=== PATIENT | female | born 2000 | race Caucasian/White ===

== ENCOUNTER 2022-12-18 21:21 | Outpatient (REF) | payer MEDICAID, SELFPAY | END 2022-12-18 21:22 | disposition home or self-care (01) | LOC: LAB 21:21 | PROVIDERS: Visit Provider Obstetrics & Gynecology | DX: Z34.93 Encounter for supervision of normal pregnancy, unspecified, third trimester (principal) | CPT/HCPCS: 87081 ==

== ENCOUNTER 2022-12-25 08:33 | Outpatient (OUT) | payer MEDICAID, SELFPAY ==
--- NOTE | 2022-12-25 08:35 | US_ITS ---
[address] [address] Patient Name: SARAN SIMPSON MRN: [id number] date: 2000 Sex: F Assigned Patient Location: Current Patient Location: US Accession/Order Number: [id number] Exam Date: 12/25/2022 08:36 Report Date: 12/25/2022 16:53 At the request of: KRISTA ENCARNACION Procedure: US OB growth EXAMINATION: US OB growth HISTORY: SGA COMPARISON: No relevant comparison available. FINDINGS: position: Cephalic presentation, longitudinal lie Amniotic fluid: 9.4 cm. Largest fluid pocket: 2.8 cm Heart rate: 128 bpm BPD: 8.3 cm, 33 weeks 3 days, less than 3% Head circumference: 30.7 cm, 34 weeks 2 days, less than 3% Abdominal circumference: 29.4 cm, 33 weeks 3 days, less than 3% Femur length: 6.7 cm, 34 weeks 4 days, less than 3% Estimated weight: 2280 g, 5 lbs. 0 oz., less than 3% Femur length BPD: 80.75 Head circumference to abdominal circumference: 1.05 Femur length abdominal circumference: 22.82 Clinical age: 37 weeks 2 days Clinical CLAUDIA: Ultrasound age: 34 weeks 0 days CLAUDIA: 02/05/2023 US/US OB growth IMPRESSION: Intrauterine growth retardation Electronically authenticated by: CHUY WILLARD Date: 12/25/2022 16:53
--- NOTE | 2022-12-25 19:00 | US_ITS ---
[address] [address] Patient Name: SARAN SIMPSON MRN: [id number] date: 2000 Sex: F Assigned Patient Location: US Current Patient Location: Accession/Order Number: [id number] Exam Date: 12/25/2022 19:10 Report Date: 12/26/2022 07:25 At the request of: KRISTA ENCARNACION Procedure: US OB BPP w non-stress EXAMINATION: US OB BPP w non-stress HISTORY: SGA P05.10 COMPARISON: No relevant comparison available. TECHNIQUE: Ultrasound biophysical profile was performed in the radiology department. FINDINGS: BREATHING MOVEMENTS: 2.0 GROSS BODY MOVEMENTS: 2.0 TONE: 2.0 QUALITATIVE AMNIOTIC FLUID VOLUME: 2.0 PRESENTATION: CEPHALIC HEART RATE: 131.7 bpm H.B./min AMNIOTIC FLUID VOLUME: 7.6 cm cm GESTATIONAL AGE: 37 weeks 2 days CONCLUSION: Total biophysical profile score: 8.0 Electronically authenticated by: CHUY WILLARD Date: 12/26/2022 07:25
== END 2022-12-25 08:34 | disposition home or self-care (01) ==
LOC: US 08:34
PROVIDERS: Visit Provider Obstetrics & Gynecology
DX: O36.5930 Maternal care for other known or suspected poor fetal growth, third trimester, not applicable or unspecified (principal); Z3A.37 37 weeks gestation of pregnancy
CPT/HCPCS: 76816; 76818

== ENCOUNTER 2022-12-25 18:49 | Outpatient (OUT) | payer MEDICAID, SELFPAY ==
[2022-12-25 19:51] VITALS: BP 122/78; PULSE 78
--- NOTE | 2022-12-25 19:59 | US_ITS ---
[address] [address] Patient Name: SARAN SIMPSON MRN: [id number] date: 2000 Sex: F Assigned Patient Location: Current Patient Location: Accession/Order Number: [id number] Exam Date: 12/25/2022 20:25 Report Date: 12/26/2022 07:24 At the request of: KRISTA ENCARNACION Procedure: US OB umbilical artery EXAMINATION: US OB umbilical artery HISTORY: IUGR COMPARISON: No relevant comparison available. TECHNIQUE: Duplex Doppler evaluation of the umbilical arteries. FINDINGS: position: Cephalic presentation, longitudinal lie Heart rate: 133 bpm Proximal umbilical artery PSV/EDV: 75/28 cm/s. RI 0.63. Ratio 2.7 Mid umbilical artery PSV/EDV: 109/56 cm/s. RI 0.48. Ratio 1.9 Distal umbilical artery: 77/38 cm/s. RI 0.5. Ratio 2.0 Forward flow identified throughout diastole Gestational age: 37 weeks 2 days US/US OB umbilical artery IMPRESSION: Normal exam, class 0 Umbilical Artery: Class 0 = Normal umbilical artery blood velocity Class I = increased RI or PI, but still forward flow in diastole Class II = Absent end diastolic flow (AEDF) Class III = Reversal of end diastolic flow (REDF) Resistive Index (RI)<1 Systolic/Diastolic ratio (S:D): An S:D ratio of 2-3 after 34 wks is normal Systolic/Diastolic ratio (S:D): Age 16: 3.01 for the 10th percentile, 4.25 for the 50th percentile, 6.07 for the 90th percentile Age 20: 3.16 for the 10th percentile, 4.04 for the 50th percentile, 5.24 for the 90th percentile Age 24: 2.70 for the 10th percentile, 3.50 for the 50th percentile, 4.75 for the 90th percentile Age 28: 2.41 for the 10th percentile, 3.02 for the 50th percentile, 3.97 for the 90th percentile Age 30: 2.43 for the 10th percentile, 3.04 for the 50th percentile, 3.80 for the 90th percentile Age 32: 2.27 for the 10th percentile, 2.73 for the 50th percentile, 3.57 for the 90th percentile Age 34: 2.08 for the 10th percentile, 2.52 for the 50th percentile, 3.41 for the 90th percentile Age 36: 1.96 for the 10th percentile, 2.35 for the 50th percentile, 3.15 for the 90th percentile Age 38: 1.89 for the 10th percentile, 2.24 for the 50th percentile, 3.10 for the 90th percentile Age 40: 1.88 for the 10th percentile, 2.22 for the 50th percentile, 2.68 for the 90th percentile Age 41: 1.93 for the 10th percentile, 2.21 for the 50th percentile, 2.55 for the 90th percentile Age 42: 1.91 for the 10th percentile, 2.51 for the 50th percentile, 3.21 for the 90th percentile Uteroplacental Artery: Resistive Index (RI): Normal=<0.55 High Resistance=Bilateral notches (after 26 wks) and RI>0.55. Unilateral notches (after 26 wks) and RI>0.65 Systolic/Diastolic ratio (S:D) = 2-3 is normal after 32 weeks. Electronically authenticated by: CHUY WILLARD Date: 12/26/2022 07:24
== END 2022-12-25 21:20 | disposition home or self-care (01) ==
LOC: US 18:50 → FBC 18:51
PROVIDERS: Visit Provider Obstetrics & Gynecology
DX: O36.5930 Maternal care for other known or suspected poor fetal growth, third trimester, not applicable or unspecified (principal); Z3A.37 37 weeks gestation of pregnancy
CPT/HCPCS: 76816; 76818; 76820

== ENCOUNTER 2022-12-27 13:18 | Outpatient (OUT) | payer MEDICAID, SELFPAY ==
--- NOTE | 2022-12-27 13:27 | US_ITS ---
[address] [address] Patient Name: SARAN SIMPSON MRN: [id number] date: 2000 Sex: F [facility] Current Patient Location: [facility] Accession/Order Number: [id number] Exam Date: 12/27/2022 13:30 Report Date: 12/29/2022 08:28 At the request of: MARTINA GUZMAN Procedure: US OB BPP w non-stress EXAMINATION: US OB BPP w non-stress HISTORY: IUGR ; intrauterine growth restriction COMPARISON: Ultrasound biophysical 12/25/2022 TECHNIQUE: Ultrasound biophysical profile was performed in the radiology department. BREATHING MOVEMENTS: 2.0 GROSS BODY MOVEMENTS: 2.0 TONE: 2.0 QUALITATIVE AMNIOTIC FLUID VOLUME: 2.0 PRESENTATION: CEPHALIC HEART RATE: 124.2 bpm bpm. AMNIOTIC FLUID VOLUME: 9.4 cm GESTATIONAL AGE: 37 weeks 4 days CONCLUSION: Total biophysical profile score 8.0. Electronically authenticated by: MARTINA NGO Date: 12/29/2022 08:28
[2022-12-27 14:03] VITALS: BP 128/82; PULSE 86
== END 2022-12-27 14:30 | disposition home or self-care (01) ==
LOC: US 13:19 → FBCO 13:22 → FBC 13:23
PROVIDERS: Visit Provider Obstetrics & Gynecology
DX: O36.5930 Maternal care for other known or suspected poor fetal growth, third trimester, not applicable or unspecified (principal); Z3A.37 37 weeks gestation of pregnancy
CPT/HCPCS: 76818

== ENCOUNTER 2022-12-29 23:43 | Inpatient (IN) | payer MEDICAID, SELFPAY ==
[2022-12-29 23:59] VITALS: BP 133/80; PULSE 83
[2022-12-30] VITALS (68 sets, daily range): BP systolic 90–139; BP diastolic 58–88; PULSE 68–113; RESP 13–24; TEMP 36.3–37.3; O2SAT 96–100
[2022-12-30 00:17] LABS: Bilirubin Urine NEGATIVE (NEGATIVE); Blood Urine NEGATIVE (NEGATIVE); Clarity Urine CLEAR (CLEAR); Color Urine LT. YELLOW (YELLOW); Glucose Urine UA NEGATIVE (NEGATIVE); Ketones Urine NEGATIVE (NEGATIVE); Leukocyte Esterase Urine NEGATIVE (NEGATIVE); Nitrite Urine NEGATIVE (NEGATIVE); Protein Urine NEGATIVE (NEG/TRACE); Specific Gravity Urine 1.015 (1.005-1.025); Urobilinogen Urine 0.2 EU/dL (0.2-1.0); pH Urine 6.5 (5.0-9.0)
[2022-12-30 00:19] LABS: Urine Microscopic Indicated NO
--- NOTE | 2022-12-30 07:45 | W.PC.ACHO ---
Registration Status: ADM CL[place] Primary Language: Preferred Language:
[2022-12-30] MEDS: 0.9 % SODIUM CHLORIDE 1,000 ML 1000 ML IV (08:46)
[2022-12-30 09:01] LABS: Hematocrit 36.5 % (36.0-48.0); Hemoglobin 12.6 g/dL (12.0-16.0); Mean Corpuscular HGB Conc 34.5 g/dL (29.9-35.2); Mean Corpuscular Volume 86.9 fL (81.0-99.0); Mean Platelet Volume 11.7 fL (9.5-13.5); Platelet Count 228 10^3/uL (150-450); Red Cell Distribution Width 14.8 % (11.0-15.0)
[2022-12-30] MEDS: OXYTOCIN 10 UNIT in 0.9 % SODIUM CHLORIDE 500 ML 6.012 UNIT IV (10:04)
[2022-12-30 11:12] LABS: Amphetamine Screen Urine NEGATIVE (NEGATIVE); Cannabinoid Screen Urine NEGATIVE (NEGATIVE); Cocaine Screen Urine NEGATIVE (NEGATIVE); Methamphetamines Screen Urine NEGATIVE (NEGATIVE); Opiate Screen Urine NEGATIVE (NEGATIVE); Phencyclidine Screen Urine NEGATIVE (NEGATIVE)
[2022-12-30 11:13] LABS: Barbiturates Screen Urine NEGATIVE (NEGATIVE); Benzodiazepines Screen Urine NEGATIVE (NEGATIVE); Buprenorphine Screen Urine NEGATIVE (NEGATIVE); Methadone Screen Urine NEGATIVE (NEGATIVE); Oxycodone Screen Urine NEGATIVE (NEGATIVE); Tricyclic Antidepressant Urine NEGATIVE (NEGATIVE)
[2022-12-30] MEDS: 0.9 % SODIUM CHLORIDE 1,000 ML 125 ML IV ×2 (12:04→16:49)
[2022-12-30] MEDS: FENTANYL CITRATE/PF 100 MCG/2 ML VIAL (12:06)
[2022-12-30] MEDS: FAMOTIDINE/PF 20 MG/2 ML VIAL IV (16:59)
[2022-12-30] MEDS: CEFAZOLIN SODIUM/DEXTROSE,ISO 2 GM/50 ML PIGGYBACK IV (17:03)
[2022-12-30] MEDS: LACTATED RINGER'S SOLUTION 1,000 ML 50 ML IV (17:28)
--- NOTE | 2022-12-30 17:49 | PM.ONB ---
Brief Operative Note Date of procedure: 12/30/22 Pre-op diagnosis: iup at 37wks, active labor, iugr, failure to induce, nonreassuring fht Post-op diagnosis: same Procedure: NAME OF PROCEDURE: [ section ] PROCEDURE: Patient was taken back to the Operating Room where she was given a spinal anesthesia with Duramorph without difficulty. She was prepped and draped in the normal sterile fashion. A Pfannenstiel skin incision was then made 2 cm above the symphysis pubis and carried down to underlying rectus fascia using a Bovie. The fascia was incised in the midline and extended laterally using Fry scissors. Two Sunny clamps were placed on the superior aspect of the fascia and dissected off the underlying rectus muscles. The same was performed on the inferior aspect as well. The muscles were then in the midline. Peritoneum was identified and entered bluntly. The peritoneum was then extended superiorly and inferiorly with good visualization of the bladder. The bladder blade was inserted. A low transverse incision was made on the patient's uterus and extended laterally digitally. The infant was then delivered atraumatically after the bladder blade was removed in the cephalic position. The cord was clamped and cut. Cord blood was obtained. The infant was handed off to awaiting team. The patient's placenta was spontaneously delivered. The uterus was then exteriorized. The uterus was cleared of all clots and debris. The bladder blade was reinserted. The patient's uterine incision was closed using #0 Vicryl in a running lock fashion. Excellent hemostasis was assured. The uterus was then returned to the patient's abdomen. The patient's abdomen was copiously irrigated using warm saline. Peritoneal gutters were cleared of all clots and debris. Again excellent hemostasis was assured. The patient's peritoneum was closed using 3-0 Vicryl in a running fashion. The patient's fascia was closed using #0 Vicryl in a running fashion. The patient's skin was closed using 4-0 Vicryl subcuticularly. The patient tolerated the procedure well. Sponge, lap, and needle counts were correct x2. The patient was taken to the Recovery Room in stable condition. Anesthesia: spinal Surgeon: Carlos Hallman Pocket Setter Lockstitch: Monique Moreno Estimated blood loss (mL): 575 Pathology: other (placenta) Condition: stable Disposition: floor
--- NOTE | 2022-12-30 17:52 | P.OBPRC_ITS ---
Procedure Pre-op/Post-op diagnoses: Pre-Op/Post-Op Diagnoses Operation Date: 12/30/22 17:05 <No data on this case meets the specified criteria> Procedure: Procedures Operation Date: 12/30/22 17:05 Actual Procedure Side Surgeon p SECTION Not Applicable Carlos Hallman DO Supervisor [employer]: Monique Moreno Estimated blood loss (mL): 575 Disposition: floor Anesthesia type: Spinal
--- NOTE | 2022-12-30 19:54 | W.PC.ACHO ---
Registration Status: ADM IN Primary Language: Kazakh Preferred Language: Kazakh Active Medications Generic Name Dose Route Start Last Admin Trade Name Freq PRN Reason Stop Dose Admin Al Hydroxide/Mg Hydroxide 2,400 mg 12/30/22 17:46 Magnesium Hydroxide 2,400 Mg/10 Ml Oral.Susp PO Q6H PRN Dyspepsia Carboprost Tromethamine 250 mcg 12/30/22 07:55 Carboprost Tromethamine 250 Mcg/Ml 1 Ml Vial IM Q15M PRN Bleeding Diphenhydramine HCl 25 mg 12/30/22 17:46 Diphenhydramine Hcl 50 Mg/Ml (1ml) Vial IV 12/31/22 17:48 Q6H PRN Itching Docusate Sodium 100 mg 12/31/22 09:00 Docusate Sodium 100 Mg Capsule PO BID MARILYN Sodium Chloride 1,000 mls @ 125 mls/hr 12/30/22 08:00 12/30/22 16:49 Sodium Chloride 0.9% 1,000 Ml IV 125 mls/hr .Q8H MARILYN Administration Oxytocin 10 unit/ Sodium 501 mls @ 6.012 mls/hr 12/30/22 08:00 12/30/22 10:04 Chloride IV 2 milliunit/min Q24H MARILYN 6.012 mls/hr Administration 2 MILLIUNIT/MIN Sodium Chloride 1,000 mls @ 150 mls/hr 12/30/22 08:15 Sodium Chloride 0.9% 1,000 Ml IV .Q6H40M MARILYN Lactated Ringer's 1,000 mls @ 50 mls/hr 12/30/22 17:30 12/30/22 17:28 Lactated Ringers IV 50 mls/hr .Q20H MARILYN Administration Sodium Chloride 1,000 mls @ 125 mls/hr 12/30/22 18:00 Sodium Chloride 0.9% 1,000 Ml IV .Q8H MARILYN Cefazolin Sodium/Dextrose 2 gm in 50 mls @ 100 mls/hr 12/30/22 23:00 Ancef IV 12/30/22 23:29 ONCE ONE Oxytocin 20 unit/ Sodium 1,002 mls @ 125 mls/hr 12/30/22 18:00 12/30/22 18:25 Chloride IV 12/31/22 01:59 125 mls/hr Q8H MARILYN 125 mls/hr Administration Ibuprofen 800 mg 12/30/22 17:46 Ibuprofen 400 Mg Tablet PO Q8H PRN Pain Ketorolac Tromethamine 30 mg 12/30/22 17:46 Ketorolac Tromethamine 30 Mg/Ml Vial IVP 01/01/23 17:47 Q6H PRN Pain Lidocaine 5 ml 12/30/22 07:55 Lidocaine Viscous 2% 15 Ml Topical Solution TOPICAL ONCE PRN Pain Lidocaine 1 ml 12/30/22 07:55 Lidocaine Hcl 1% 200 Mg/20 Ml Mdv INJ ONCE PRN Pain Methylergonovine Maleate 0.2 mg 12/30/22 07:55 Methylergonovine Maleate 0.2 Mg/Ml Ampule IM ONCE PRN Uterine Contractility/Contract Methylergonovine Maleate 0.2 mg 12/30/22 07:55 Methylergonovine Maleate 0.2 Mg Tablet PO Q4H PRN Uterine Contractility/Contract Misoprostol 1,000 mcg 12/30/22 07:55 Misoprostol 100 Mcg Tablet MN ONCE PRN Uterine Bleeding Nalbuphine HCl 10 mg 12/30/22 17:46 Nalbuphine Hcl 10 Mg/Ml Ampule IV 12/31/22 17:48 Q3H PRN Itching Ondansetron HCl 4 mg 12/30/22 07:55 Ondansetron Pf 4 Mg/2 Ml Vial IV Q6H PRN Nausea And Vomiting Ondansetron HCl 4 mg 12/30/22 07:55 Ondansetron 4 Mg Rapdis Tablet SL Q6H PRN Nausea And Vomiting Ondansetron HCl 4 mg 12/30/22 17:46 Ondansetron Pf 4 Mg/2 Ml Vial IV Q6H PRN Nausea And Vomiting Ondansetron HCl 4 mg 12/30/22 17:46 Ondansetron 4 Mg Rapdis Tablet PO Q6H PRN Nausea And Vomiting Oxycodone/Acetaminophen 1 each 12/30/22 17:46 Oxycodone Hcl/Acetaminophen 5-325 Mg Tablet PO Q4H PRN Pain Oxycodone/Acetaminophen 2 each 12/30/22 17:46 Oxycodone Hcl/Acetaminophen 5-325 Mg Tablet PO Q4H PRN Pain Oxytocin 10 unit 12/30/22 07:55 Oxytocin 100 Unit/10 Ml Vial IM ONCE PRN Uterine Bleeding Senna 17.2 mg 12/30/22 20:00 Sennosides 8.6 Mg Tablet PO QHS PRN Constipation Simethicone 80 mg 12/30/22 17:46 Simethicone 80 Mg Tab.Chew PO QID PRN Abdominal Distention Diet Category Date Time Status Regular Consistency Diet Diet 12/30/22 Dinner Active Consults Category Date Time Status Consult to Anesthesiology Routine Cons 12/30/22 Ordered Consult to Anesthesiology Routine Cons 12/30/22 Ordered IV Insertion/Site Date of IV Line Insertion [20g 12/30/22 left Forearm] IV Insertion Time [20g left 08:10 Forearm] Neurology Patient orientation (short person,place,time,situation list) Respiratory Lung sounds [Throughout] clear Lung sounds [Throughout] clear Lung sounds [Throughout] clear Lung sounds [Throughout] clear Lung sounds [Throughout] clear Lung sounds [Throughout] clear Pulse Oximetry 98 Pulse Oximetry 99 Pulse Oximetry 100 Pulse Oximetry 99 Pulse Oximetry 99 Pulse Oximetry 98 Pulse Oximetry 100 Pulse Oximetry 100 Pulse Oximetry 99 Pulse Oximetry 99 Pulse Oximetry 100 Oxygen Delivery Method Room Air Oxygen Delivery Method Room Air Oxygen Delivery Method Room Air Oxygen Delivery Method Room Air Oxygen Delivery Method Room Air Catheter Urinary Catheter Date of 12/30/22 Insertion [Urethral] Urinary Catheter Date of 12/30/22 Insertion [Urethral] Urinary Catheter Date of 12/30/22 Insertion [Urethral]
[2022-12-31] VITALS (8 sets, daily range): BP systolic 110–123; BP diastolic 56–76; PULSE 83–95; RESP 16; TEMP 35.6–36.7; O2SAT 97
[2022-12-31] MEDS: CEFAZOLIN SODIUM/DEXTROSE,ISO 2 GM/50 ML PIGGYBACK IV (00:09)
[2022-12-31] MEDS: KETOROLAC TROMETHAMINE 30 MG/ML VIAL IVP ×3 (00:11→20:24)
[2022-12-31 06:41] LABS: Basophils Percent Auto 0.1 % (0.2-2.0); Eosinophils Percent Auto 0.1 % (0.9-7.0); Hematocrit 30.1 % (36.0-48.0); Immature Granulocytes Abs Auto 0.08 10^3/uL (0.00-0.03); Immature Granulocytes Pct Auto 0.6 % (0.0-0.5); Lymphocytes Absolute Auto 2.4 10^3/uL (1.2-3.8); Lymphocytes Percent Auto 16.6 % (20.5-60.0); Mean Corpuscular HGB Conc 33.2 g/dL (29.9-35.2); Mean Corpuscular Hemoglobin 29.7 pg (26.7-34.0); Mean Corpuscular Volume 89.3 fL (81.0-99.0); Mean Platelet Volume 10.9 fL (9.5-13.5); Monocytes Absolute Auto 0.8 10^3/uL (0.3-0.8); Monocytes Percent Auto 5.7 % (1.7-12.0); Neutrophils Absolute Auto 11.2 10^3/uL (1.4-6.5); Neutrophils Percent Auto 76.9 % (43.0-75.0); Platelet Count 174 10^3/uL (150-450); Red Blood Count 3.37 10^6/uL (4.20-5.40); Red Cell Distribution Width 15.3 % (11.0-15.0); White Blood Count 14.5 10^3/uL (4.0-11.0)
--- NOTE | 2022-12-31 08:13 | P.OBPN_ITS ---
OB - PN: Subj Subjective Patient comments: no complaints and pain well controlled [place] status: doing well Exam Constitutional Vital Signs, click to edit/add: Last Vital Signs Temp 96.1 F L 12/31/22 04:00 Pulse 95 H 12/31/22 04:00 Resp 16 12/31/22 05:10 BP 123/67 H 12/31/22 04:00 Pulse Ox 97 12/31/22 05:10 O2 Del Method Room Air 12/31/22 05:10 Documenting provider has reviewed patient's vital signs: yes Common normals: no apparent distress Respiratory Common normals: normal respiratory effort and clear to auscultation bilaterally Cardio Common normals: regular rate and regular rhythm GI Common normals: Normal to inspection, nondistended, normoactive bowel sounds present Extremity Common normals: no clubbing, cyanosis or edema and no calf tenderness Results Labs Labs: Short CBC 12/30/22 12/31/22 Range/Units 08:15 06:30 WBC 11.0 14.5 H (4.0-11.0) 10^3/uL Hgb 12.6 10.0 L (12.0-16.0) g/dL Hct 36.5 30.1 L (36.0-48.0) % Plt Count 228 174 (150-450) 10^3/uL OB - PN: A/P Plan - day: 1 Plan: routine postop care Time Spent with Patient Time: Total time spent is greater than 50% in coordination of care (as documented) at patient's floor/unit and/or counseling patient: Total time spent with greater than 50% in coordination of care (as documented) at patient's floor/unit and/or counseling patient: less than 15 minutes
[2022-12-31] MEDS: FLUOXETINE HCL 20 MG CAPSULE PO (12:47)
[2022-12-31] MEDS: DOCUSATE SODIUM 100 MG CAPSULE PO ×2 (12:47→20:24)
--- NOTE | 2022-12-31 19:31 | PC.NURSE ---
mom reports atempting to latch infant with oout sucess. this RN assists. Moderate latch noted. much education and reassurance given.
[2023-01-01] VITALS (8 sets, daily range): BP systolic 114–119; BP diastolic 56–73; PULSE 82–89; RESP 16; TEMP 36.7–36.9
--- NOTE | 2023-01-01 00:33 | PC.NURSE ---
2350 7/26 Pt pumps for 15 min and 0.5 ml colostrum is obtained
[2023-01-01] MEDS: KETOROLAC TROMETHAMINE 30 MG/ML VIAL IVP ×2 (04:06→10:36)
--- NOTE | 2023-01-01 07:40 | PC.NURSE ---
Care assumed after bedside report. Pt. sleeping off and on. Nb in [place] sleeping as well.
--- NOTE | 2023-01-01 07:46 | P.OBPN_ITS ---
OB - PN: Subj Subjective Patient comments: no complaints and pain well controlled [place] status: doing well Exam Constitutional Vital Signs, click to edit/add: Last Vital Signs Temp 98.1 F 12/31/22 22:25 Pulse 83 12/31/22 22:26 Resp 16 12/31/22 22:25 BP 110/56 L 12/31/22 22:26 Pulse Ox 97 12/31/22 05:10 O2 Del Method Room Air 12/31/22 22:25 Documenting provider has reviewed patient's vital signs: yes Common normals: no apparent distress Respiratory Common normals: normal respiratory effort and clear to auscultation bilaterally Cardio Common normals: regular rate and regular rhythm GI Common normals: Normal to inspection, nondistended, normoactive bowel sounds present Extremity Common normals: normal to inspection, no clubbing, cyanosis or edema and no calf tenderness OB - PN: A/P Plan - day: 2 Plan: routine postop care Time Spent with Patient Time: Total time spent is greater than 50% in coordination of care (as documented) at patient's floor/unit and/or counseling patient: Total time spent with greater than 50% in coordination of care (as documented) at patient's floor/unit and/or counseling patient: less than 15 minutes
[2023-01-01] MEDS: FLUOXETINE HCL 20 MG CAPSULE PO (10:37)
[2023-01-01] MEDS: IBUPROFEN 400 MG TABLET 800 MG PO (19:15)
[2023-01-01] MEDS: DOCUSATE SODIUM 100 MG CAPSULE PO (22:19)
[2023-01-02] MEDS: IBUPROFEN 400 MG TABLET 800 MG PO (06:19)
--- NOTE | 2023-01-02 06:22 | PC.NURSE ---
Pt performs hand expression and will give infant additional
[2023-01-02 09:30] VITALS: RESP 16; RESP 18; TEMP 36.9
[2023-01-02 09:45] VITALS: BP 119/67; PULSE 77
[2023-01-02] MEDS: DOCUSATE SODIUM 100 MG CAPSULE PO (09:50)
[2023-01-02] MEDS: FLUOXETINE HCL 20 MG CAPSULE PO (09:50)
--- NOTE | 2023-01-02 11:01 | PM.OBDS ---
DS: Providers Provider Date of admission: 12/30/22 08:07 Primary care physician: Non-Staff Physician, Admitting clinician: Carlos Hallman Consults: 12/30/22 Consult to Anesthesiology Routine Consulting Provider: Feroz Grimaldo Consult to Anesthesiology Routine Consulting Provider: Yovani Sofia II Attending physician on discharge: Victorina Pack Discharging clinician: Victorina Pack Anticipated date of discharge: 12/04/22 DS: Diagnosis Discharge Diagnosis (1) Previous section: Assessment and plan: CLINICAL EXAM NON FOCAL, NO COMPLAINTS, VITAL SIGNS STABLE, INSTRUCTIONS GIVEN, FOLLOW UP IN ONE WEEK FOR INCISION CHECK, SPORTS BRA 30/12 IF DECIDES NOT TO BREAST FEED, RESTRICTIONS EXPLAINED WITH STATED UNDERSTANDING, LEAVE INCISION ALONE Plan SEE ABOVE OB - DS: Summary Hospital Course Hospital Course: UNCOMPLICATED Time spent discussing smoking cessation with patient: more than 10 minutes Peripartum Data - Procedures: Procedures Operation Date: 12/30/22 17:05 Actual Procedure Side Surgeon p SECTION Not Applicable Carlos Hallman DO Peripartum Data - Vaginal Delivery Procedures: Procedures Operation Date: 12/30/22 17:05 Actual Procedure Side Surgeon p SECTION Not Applicable Carlos Hallman DO Complications complications: none Infant Delivery method: section (PRIMARY FOR JEOPARDY) Gender: female Discharge plan: home Status at Discharge Functional status at discharge: independent ambulation Overall status at discharge: patient is back to baseline Time Spent with Patient Time attestation: Total time spent providing and/or coordinating discharge services: Time spent: less than 30 minutes Specific discharge activities: EXPLAINED ABOVE Exam Constitutional Vital Signs, click to edit/add: Last Vital Signs Temp 98.5 F 01/01/23 23:30 Pulse 77 01/02/23 09:45 Resp 16 01/01/23 23:30 BP 119/67 01/02/23 09:45 Pulse Ox 97 12/31/22 05:10 O2 Del Method Room Air 01/01/23 17:00 Common normals: no apparent distress, average body habitus and oriented x3 General appearance: cooperative, comfortable and well kempt Orientation/consciousness: Yes oriented to person, Yes oriented to place and Yes oriented to time HENMT Common normals: normocephalic and head/scalp atraumatic Eye Common normals: PERRL Pupil: accommodation reflex normal Neck & C-Spine Common normals: full ROM Respiratory Common normals: normal respiratory effort Auscultation: clear to auscultation bilaterally Cardio Common normals: regular rate and regular rhythm GI Common normals: Normal to inspection, nondistended, normoactive bowel sounds present Back & Pelvis Common normals: no CVA tenderness Extremity Common normals: normal to inspection and full ROM Neuro Common normals: CN's II-XII intact bilaterally Psych Common normals: mental status grossly normal Discharge Plan Discharge Disposition: Home, Self-Care Condition: Good Assessment: PRIMIP S/P PRIMARY CS FOR JEOPARDY DOING WELL. INCISION DRY AND INTACT. AMBULATING AND ELIMINATING NORMALLY. EATING. GOOD PAIN CONTROL WITH NSAID. BREAST FEEDING WITHOUT PROBLEM. GOOD SUPPORTS AT HOME. AFEBRILE WITH STABLE VITAL SIGNS. VOICING NO CONCERNS. Health Concerns: NONE Plan of Treatment: FOLLOW UP IN ONE WEEK FOR INCISION CHECK. CALL IN INTERIM FOR PROBLEM OR CONCERN. BABY TO PEDS WITHIN THE WEEK. INSTRUCTIONS GIVEN WITH STATED UNDERSTANDING. SCRIPTS TO PATIENT FOR COLACE AND IBUPROFEN. Discharge Medications: Continued omeprazole 20 mg capsule,delayed release(DR/EC) 20 mg PO QAM Rx Instructions: PER RETAIL FILL HX - LAST FILLED 12/09/22 #30 FOR A 30 DAY SUPPLY TAKE 1 CAP PO QAM BEFORE A MEAL fluoxetine 20 mg capsule 40 mg PO QAM Rx Instructions: PER RETAIL FILL HX - LAST FILLED 12/20/22 #60 FOR A 30 DAY SUPPLY TAKE 2CAPS=40MG PO QAM M- Plus 27 mg iron- 1 mg tablet 1 tab PO QDAY Rx Instructions: PER RETAIL FILL HX - LAST FILLED 12/26/22 #30 FOR A 30 DAY SUPPLY Activity: resume usual activities as tolerated Activity Detail: WALKING ONLY FORM OF EXERCISE FOR SIX WEEKS Diet: regular diet Activity Restrictions/Additional Instructions: NO SEX FOR SIX WEEKS, NO SWIMMING FOR SIX WEEKS, MAY SHOWER, NO BATHTUB FOR SIX WEEKS, FOLLOW UP WITH DR. HALLMAN IN ONE WEEK FOR INCISION CHECK, WALKING ONLY FORM OF EXERCISE FOR SIX WEEKS, GENERAL RSV AND COVID INSTRUCTIONS GIVEN, SPORTS BRA 29/12 IF DECIDES NOT TO BREAST FEED, CALL FOR PROBLEM OR CONCERN Forms: Portal Instructions Follow Up Appointments: NEEDS AN APPOINTMENT FOR INCISION CHECK IN ONE WEEK Discharge location: HOME
== END 2023-01-02 16:00 | disposition home or self-care (01) | DRG 540 ==
PROVIDERS: Admitting Provider Obstetrics & Gynecology; Visit Provider Obstetrics & Gynecology
PROC: 10D00Z1 Extraction of Products of Conception, Low, Open Approach (ICD-10-PCS; CPT 59514; principal; 2022-12-30 17:05)
DX: O36.5930 Maternal care for other known or suspected poor fetal growth, third trimester, not applicable or unspecified (principal); O61.9 Failed induction of labor, unspecified; O76 Abnormality in fetal heart rate and rhythm complicating labor and delivery; Z37.0 Single live birth; O41.03X0 Oligohydramnios, third trimester, not applicable or unspecified; O99.344 Other mental disorders complicating childbirth; O99.354 Diseases of the nervous system complicating childbirth; G43.909 Migraine, unspecified, not intractable, without status migrainosus; F32.A Depression, unspecified; F41.9 Anxiety disorder, unspecified; Z3A.37 37 weeks gestation of pregnancy
CPT/HCPCS: 36415; 51702; 59025; 59050; 76818; 80307; 81003; 85025; 85027; 86850; 86900; 86901; 88307; 94667; 94668; 96374; 96375; 96376

== ENCOUNTER 2023-07-10 10:00 | Emergency (ER) | payer MEDICAID, SELFPAY ==
[2023-07-10 10:06] VITALS: BP 105/75; PULSE 70; RESP 18; TEMP 36.5; O2SAT 100; BMI 23.4
--- NOTE | 2023-07-10 11:00 | ED.ABDPAIN1 ---
HPI - Abdominal Pain General Chief Complaint: Abdominal Pain Stated Complaint: STOMACH PAIN Time Seen by Provider: 07/10/23 10:50 Source: patient Mode of arrival: walk-in Limitations: no limitations History of Present Illness HPI narrative: This patient is here with abdominal pain. The location of pain is around the periumbilical area. She is known to have polycystic ovarian disease but has not had severe pain with that previously. She has had a section otherwise no other abdominal surgery. She has not had fever shakes or chills. Does not have any pain rating to the back or the flank area. She has no urinary symptoms such as frequency, urgency, dysuria or hematuria. No history of kidney stones or urinary infections. She not been on any antibiotics. She has not taken any analgesics before arriving here. She does not have any acid reflux symptoms. She has not seen any blood in her stool. She says she has been struggling to have a bowel movement in the last 2 days. She has not had any diarrhea. She denies any possibility of being . Does not have a pain on the right side of the abdomen. Related Data Home Medications Medication Instructions Recorded Confirmed omeprazole 20 mg capsule,delayed 20 mg PO QAM 12/30/22 07/10/23 release buspirone 5 mg tablet 5 mg PO Q24H 07/10/23 07/10/23 venlafaxine 37.5 mg 37.5 mg PO Q24H 07/10/23 07/10/23 capsule,extended release 24 hr Allergies Allergy/AdvReac Type Severity Reaction Status Date / Time No Known Drug Allergies Allergy Verified 12/30/22 00:43 PFSH PFS Family History (Updated 12/30/22 @ 10:11 by Blanche Giordano) Other Family history of COPD (chronic obstructive pulmonary disease) Family history of cancer Family history of diabetes mellitus Family history of hypertension Family history of stroke Social History Smoking status: Current every day smoker Exam Narrative Exam Narrative: Awake alert pleasant does not appear to be uncomfortable lying still and quiet on the cart. Examination abdomen bowel sounds are present in all quadrants with no guarding rebound rigidity or peritoneal findings. There is no tenderness in the right upper quadrant. There is no tenderness at McBurney's point. Very minimal discomfort just inferior and left lateral to her umbilicus. No pain on the right pelvic area or on the left pelvic area. No rebound or rigidity. On examination her skin integument there is no evidence of anemia or scleral icterus. Examining her back she has negative Edward sign and she has no respiratory distress or respiratory complaints. Constitutional Vital Signs, click to edit/add: Last Vital Signs Temp 97.7 F 07/10/23 10:06 Pulse 70 07/10/23 10:06 Resp 18 07/10/23 10:06 BP 105/75 07/10/23 10:06 Pulse Ox 100 07/10/23 10:06 Course Vital Signs Vital signs: Vital Signs Temperature 97.7 F 07/10/23 10:06 Pulse Rate 70 07/10/23 10:06 Respiratory Rate 18 07/10/23 10:06 Blood Pressure 105/75 07/10/23 10:06 Pulse Oximetry 100 07/10/23 10:06 Temperature 97.7 F 07/10/23 10:06 Pulse Rate 70 07/10/23 10:06 Respiratory Rate 18 07/10/23 10:06 Blood Pressure 105/75 07/10/23 10:06 Pulse Oximetry 100 07/10/23 10:06 MDM - Abdominal Pain MDM Narrative Medical decision making narrative: Patient's laboratory testing including liver function lipase CBC H&H are all essentially normal. She has nonspecific clinical presentation with no abdominal findings. I do not believe she will benefit from CT imaging. Her symptoms do not suggest acid reflux. She is known to have polycystic ovarian disease and her discomfort is more in the left lower abdomen. I am advising NSAIDs at this time. Her urinalysis does not suggest or UTI. Discharge Plan Discharge Chief Complaint: Abdominal Pain Clinical Impression: Abdominal pain Patient Disposition: Home, Self-Care Time of Disposition Decision: 12:13 Prescriptions / Home Meds: No Action omeprazole 20 mg capsule,delayed release(DR/EC) 20 mg PO QAM Rx Instructions: PER RETAIL FILL HX - LAST FILLED 12/09/22 #30 FOR A 30 DAY SUPPLY TAKE 1 CAP PO QAM BEFORE A MEAL buspirone 5 mg tablet 5 mg PO Q24H venlafaxine 37.5 mg capsule,extended release 24hr 37.5 mg PO Q24H Additional Instructions: If discomfort persist consider GI evaluation, you will need a referral from your primary care doctor. Take a copy of your lab test with you. Return if you develop fever worse pain or other symptoms of concern. May use [id number] NSAIDs. Stand Alone Forms: Portal Instructions Referrals: Physician,Non-Staff, MD [Primary Care Provider] - 1 week
[2023-07-10 11:15] LABS: HCG Qualitative Urine* NEGATIVE (NEGATIVE)
[2023-07-10 11:28] VITALS: BP 110/88; PULSE 87; RESP 18; O2SAT 100
[2023-07-10 11:41] LABS: Basophils Percent Auto 0.1 % (0.2-2.0); Eosinophils Absolute Auto 0.1 10^3/uL (0.0-0.7); Eosinophils Percent Auto 1.1 % (0.9-7.0); Hematocrit 37.7 % (36.0-48.0); Hemoglobin 12.4 g/dL (12.0-16.0); Immature Granulocytes Abs Auto 0.02 10^3/uL (0.00-0.03); Immature Granulocytes Pct Auto 0.2 % (0.0-0.5); Lymphocytes Percent Auto 24.7 % (20.5-60.0); Mean Corpuscular HGB Conc 32.9 g/dL (29.9-35.2); Mean Corpuscular Hemoglobin 28.8 pg (26.7-34.0); Mean Corpuscular Volume 87.7 fL (81.0-99.0); Mean Platelet Volume 11.4 fL (9.5-13.5); Monocytes Absolute Auto 0.3 10^3/uL (0.3-0.8); Monocytes Percent Auto 3.4 % (1.7-12.0); Neutrophils Absolute Auto 5.8 10^3/uL (1.4-6.5); Neutrophils Percent Auto 70.5 % (43.0-75.0); Platelet Count 295 10^3/uL (150-450); Red Cell Distribution Width 12.8 % (11.0-15.0); White Blood Count 8.2 10^3/uL (4.0-11.0)
[2023-07-10 11:48] LABS: Alanine Aminotransferase 18 U/L (14-59); Albumin Globulin Ratio 1.1; Albumin Level 4.1 g/dL (3.4-5.0); Alkaline Phosphatase 73 U/L (46-116); Aspartate Amino Transferase 11 U/L (15-37); Bilirubin Direct 0.1 mg/dL (0.0-0.2); Bilirubin Total 0.3 mg/dL (0.2-1.0); Globulin 3.7 g/dL; Total Protein 7.8 g/dL (6.4-8.2)
== END 2023-07-10 12:21 | disposition home or self-care (01) ==
PROVIDERS: Emergency Provider Emergency Medicine Emergency Medical Services
DX: R10.9 Unspecified abdominal pain (principal); E28.2 Polycystic ovarian syndrome; Z79.899 Other long term (current) drug therapy; F17.210 Nicotine dependence, cigarettes, uncomplicated
CPT/HCPCS: 36415; 80053; 80076; 83605; 83690; 84484; 84703; 85025; 99283

== ENCOUNTER 2023-07-16 19:36 | Outpatient (REF) | payer MEDICAID, SELFPAY ==
--- OUTSIDE RECORDS SUMMARY | 2023-07-16 19:41 | XMS_ITS | CCD ---
Author Name Unknown Address [address] [place] [address] Organization [facility] Care Team Providers Care Account Management Specialist Name Role Phone DEBORA HUI Unavailable Unavailable DEBORA HUI Unavailable Unavailable MISC, DOCTOR Unavailable Unavailable DEBORA HUI Unavailable Unavailable KALEB CHI Unavailable Unavailable Haley Dennison Unavailable Elliot Hammond Unavailable Tristin Theodore Unavailable Rosemarie Ac Unavailable Harmony Pantoja Unavailable Haley Dennison Primary Care Unavailable Bobo Lowe Admitting Unavaila Bobo Anderson Attending Unavaila PENNY Delarosa Attending Provider Gertrude Oneil Attending Unavailable Gertrude Oneil Admitting Unavailable Luke Rivera Admitting Unavailab Luke Briseno Attending Unavailab le Medications Current Medications Medication Drug Class(es) Dates Sig (Normalized) Sig (Original) amoxicillin 500 mg oral capsule (1 source) Penicillin-class Antibacterial Start: 11-28-2022 take 1 capsule by mouth every eight hours Amoxicillin 500 MG 1 capsule Orally three times a day for 10 day(s) Nov, Active benzoyl peroxide 0.05 mg/mg / clindamycin phosphate 0.012 mg/mg topical gel (7 sources) Lincosamide Antibacterial Start: 02-12-2021 Clindamycin Phos-Benzoyl Perox 1.2-5 % 1 application Externally Once a day for 30 day(s) Feb, Active Start: 02-12-2021 FLUoxetine 40 mg oral capsule (19 sources) Serotonin Reuptake Inhibitor Start: 05-06-2022 take 1 capsule by mouth every twenty-four hours FLUoxetine HCl 40 MG 1 capsule Orally Once a day for 30 day(s) Apr, Active PROzac Not-Takin g PROzac Active fluticasone propionate 0.05 mg/actuat metered dose nasal spray (1 source) Corticosteroid Start: 11-28-2022 take 2 spray(s) nasal route once daily Fluticasone Propionate 50 MCG/ACT 2 sprays Nasally Once a day for 14 day(s) Nov, Active nitrofurantoin, macrocrystals 25 mg / nitrofurantoin, monohydrate 75 mg oral capsule (4 sources) Nitrofuran Antibacterial Start: 01-15-2022 take 1 capsule by mouth every twelve hours Macrobid 100 MG 1 cap(s) Orally 2 times a day for 5 day(s) Jan, Active omeprazole 10 mg delayed release oral capsule (1 source) Proton Pump Inhibitor take 1 capsule by mouth once daily Omeprazole 10 MG 1 capsule 30 minutes before morning meal Orally Once a day Active phenazopyridine hydrochloride 200 mg oral tablet (4 sources) Start: 01-15-2022 take 1 tablet by mouth every eight hours Pyridium 200 MG 1 tablet after meals Orally Three times a day for 2 day(s) Jan, Active Completed/Discontinued Medications Medication Drug Class(es) Dates Sig (Normalized) Sig (Original) benzocaine 15 mg / menthol 2.6 mg oral lozenge (7 sources) Standardized Chemical Allergen Start: 03-27-2022 Cepacol Extra Strength 15-2.6 MG as directed Mouth/Throat every 4 hours for 5 day(s) Mar, Not-Taking busPIRone hydrochloride 10 mg oral tablet (20 sources) take 2 tablets by mouth three times daily busPIRone HCl 10 MG 2 tablet Orally Three times per day for 30 day(s) Not-Taking take 1 tablet by mouth three joanne es daily busPIRone HCl 10 MG 1 tablet Orally Three times per day for 30 day(s) Active dextromethorphan hydrobromide 1.5 mg/ml / pyrilamine maleate 1.5 mg/ml oral solution (7 sources) Uncompetitive W-adcgpf-D-aspartate Receptor Antagonist, Sigma-1 Agonist Start: 03-27-2022 [place] DM 7.5-7.5 MG/5ML 10 ml Orally every 6-8 hours as needed for 8 days Mar, Not-Taking Problems Active Problems Problem Classification Problem Date Documented Da te Episodic/Chronic Abdominal pain (1 source) Unspecified abdominal pain Episodic Anxiety disorders (20 sources) Low self-esteem; Translations: [Low self-esteem] Onset: 05-06-2021 Resolved: 06-10-2021 Chronic Fluid and electrolyte disorders (1 source) Volume depletion, unspecified; Translations: [VOLUME DEPLETION UNSPECIFIED] Onset: 10-01-2017 Episodic Genitourinary symptoms and ill-defined conditions (17 sources) Dysuria; Translations: [Dysuria] Onset: 01-15-2022 Resolved: 01-15-2022 Episodic Malaise and fatigue (20 sources) Fatigue; Translations: [Chronic fatigue, unspecified] Chronic Menstrual disorders (20 sources) Menorrhagia; Translations: [Excessive and frequent menstruation with regular cycle] Chronic Miscellaneous mental health disorders (20 sources) Distorted body image; 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 Mood disorders (20 sources) Recurrent major depressive episodes, mild ; Translations: [Major depressive disorder, recurrent, mild] Chronic Nausea and vomiting (3 sources) Nausea with vomiting, unspecified; Translations: [NAUSEA WITH VOMITING UNSPECIFIED] Onset: 09-22-2017 Episodic Nausea and vomiting (1 source) Vomiting, unspecified; Translations: [VOMITING UNSPECIFIED] Onset: 10-01-2017 Nonmalignant breast conditions (1 source) Mastodynia Episodic Nutritional deficiencies (20 sources) Vitamin D deficiency; Translations: [Vitamin D deficiency, unspecified] Chronic Other acquired deformities (20 sources) Finding of upper limb; Translations: [Other specified acquired deformities of unspecified upper arm] Episodic Other bone disease and musculoskeletal deformities (14 sources) Idiopathic scoliosis of thoracic spine; Translations: [Other idiopathic scoliosis, thoracic region] Chronic Other endocrine disorders (16 sources) Polycystic ovary syndrome; Translations: [Polycystic ovarian syndrome] Chronic Other endocrine disorders (1 source) Polycystic ovarian syndrome Onset: 06-10-2021 Resolved: 06-10-2021 Chronic Other nervous system disorders (17 sources) Chronic pain; Translations: [Other chronic pain] Chronic Other nervous system disorders (1 source) Other chronic pain Onset: 05-23-2021 Resolved: 05-23-2021 Chronic Other and delivery including normal (1 source) Encounter for test, result positive Episodic Other upper respiratory infections (20 sources) Sore throat symptom; Translations: [Acute pharyngitis, unspecified] Onset: 12-25-2021 Resolved: 01-15-2022 Episodic Otitis media and related conditions (1 source) Otitis media, unspecified, right ear Episodic Spondylosis; intervertebral disc disorders; other back problems (20 sources) Lumbar spondylosis; Translations: [Spondylosis without myelopathy or radiculopathy, lumbar region] Chronic Substance-related disorders (20 sources) Tobacco dependence syndrome; Translations: [Nicotine dependence, cigarettes, with other nicotine-induced disorders] Chronic Past or Other Problems Problem Classification Problem Date Documented Da te Episodic/Chronic Other acquired deformities (2 sources) Deforming dorsopathy, unspecified Onset: 05-06-2021 Resolved: 05-23-2021 Episodic Other acquired deformities (2 sources) Other specified acquired deformities of unspecified upper arm Onset: 05-06-2021 Resolved: 05-23-2021 Episodic Other acquired deformities (1 source) Acquired deformity of pelvis Onset: 05-23-2021 Resolved: 05-23-2021 Episodic Other gastrointestinal disorders (1 source) Diarrhea, unspecified Onset: 12-25-2021 Resolved: 12-25-2021 Episodic Other skin disorders (1 source) Other acne Onset: 06-10-2021 Resolved: 06-10-2021 Episodic Spondylosis; intervertebral disc disorders; other back problems (1 source) Pain in thoracic spine Onset: 05-23-2021 Resolved: 05-23-2021 Episodic Unclassified (1 source) Contact with and (suspected) exposure to covid-19 Z20.822 Urinary tract infections (3 sources) Urinary tract infection, site not specified Onset: 01-15-2022 Resolved: 01-15-2022 Episodic Results Test Name Value Interpretation Reference Range Facility Alanine aminotransferase [En zymatic activity/volume] in Serum or PlasmaOrdered By: Gertrude Oneil on 07-15-2023 ALT [Catalytic activity/Vol] 13 U/L 7-52 [facility] Albumin [Mass/volume] in Ser um or Plasma by Bromocresol green (BCG) dye binding methoOrdered By: Gertrude Oneil on 07-15-2023 Albumin BCG dye [Mass/Vol] 4.9 g/dL 3.5-5.7 [facility] Alkaline phosphatase [Enzyma tic activity/volume] in Serum or PlasmaOrdered By: Gertrude Oneil on 07-15-2023 ALP [Catalytic activity/Vol] 76 U/L 34-104 [facility] Aspartate aminotransferase [ Enzymatic activity/volume] in Serum or PlasmaOrdered By: Gertrude Oneil on 07-15-2023 AST [Catalytic activity/Vol] 14 U/L 13-39 [facility] Basophils Auto (Bld) [#/Vol] Ordered By: Gertrude Oneil on 07-15-2023 Basophils (Bld) [#/Vol] 0.0 10*3/uL 0.0-0.2 [facility] Basophils/100 WBC Auto (Bld) Ordered By: Gertrude Oneil on 07-15-2023 Basophils/100 WBC (Bld) 0.7 % . [facility] Bilirubin.total [Mass/volume ] in Serum or PlasmaOrdered By: Gertrude Oneil on 07-15-2023 Bilirubin [Mass/Vol] 0.3 mg/dL 0.3-1.0 [facility] Calcium [Mass/volume] in Ser um or PlasmaOrdered By: Gertrude Oneil on 07-15-2023 Calcium [Mass/Vol] 10.1 mg/dL 8.6-10.3 [facility] Carbon dioxide, total [Moles /volume] in Serum or PlasmaOrdered By: Gertrude Oneil on 07-15-2023 CO2 [Moles/Vol] 29.1 mmol/L 21.0-31.0 [facility] Chloride [Moles/volume] in S nikki or PlasmaOrdered By: Gertrude Oneil on 07-15-2023 Chloride [Moles/Vol] 104 mmol/L 98-107 [facility] Complete Blood Count Auto Di ffon 07-15-2023 Basophils (Bld) [#/Vol] 0.0 10*3/uL Normal 0.0-0.2 [facility] Comment on above: Result Comment: PERF ORMED BY: [place] [address] PATHOLOGIST POLICE ARTIST TIERA RAMIREZ M.D. Performed By: #### C BC, T3T, TSH3, B12, [id number], CMP #### [address] Basophils/100 WBC (Bld) 0.7 % Normal . [facility] Comment on above: Performed By: #### C BC, T3T, TSH3, B12, [id number], CMP #### [address] Eosinophils (Bld) [#/Vol] 0.1 10*3/uL Normal 0.0-0.45 [facility] Comment on above: Performed By: #### C BC, T3T, TSH3, B12, [id number], CMP #### [address] Eosinophils/100 WBC (Bld) 2.8 % Normal . [facility] Comment on above: Performed By: #### C BC, T3T, TSH3, B12, [id number], CMP #### [address] Erythrocyte distribution width (RBC) [Ratio] 13.4 % Normal 11.9-15.3 [facility] Comment on above: Performed By: #### C BC, T3T, TSH3, B12, [id number], CMP #### [address] Hematocrit (Bld) [Volume fraction] 37.4 % Normal 34.0-46.4 [facility] Comment on above: Performed By: #### C BC, T3T, TSH3, B12, [id number], CMP #### [address] Hemoglobin (Bld) [Mass/Vol] 12.4 g/dL Normal 11.8-15.4 [facility] Comment on above: Performed By: #### C BC, T3T, TSH3, B12, [id number], CMP #### [address] Lymphocytes (Bld) [#/Vol] 2.4 10*3/uL Normal 1.00-4.8 [facility] Comment on above: Performed By: #### C BC, T3T, TSH3, B12, [id number], CMP #### [address] Lymphocytes/100 WBC (Bld) 44.0 % Normal . [facility] Comment on above: Performed By: #### C BC, T3T, TSH3, B12, [id number], CMP #### [address] MCH (RBC) [Entitic mass] 29.0 pg Normal 24.7-34.3 [facility] Comment on above: Performed By: #### C BC, T3T, TSH3, B12, [id number], CMP #### [address] MCV (RBC) [Entitic vol] 87.1 fL Normal 80-100 [facility] Comment on above: Performed By: #### C BC, T3T, TSH3, B12, [id number], CMP #### [address] Mean Corpuscular HGB Conc 33.3 g/dL Normal 32.0-35.0 [facility] Comment on above: Performed By: #### C BC, T3T, TSH3, B12, [id number], CMP #### [address] Monocytes (Bld) [#/Vol] 0.4 10*3/uL Normal 0.0-0.8 [facility] Comment on above: Performed By: #### C BC, T3T, TSH3, B12, [id number], CMP #### [address] Monocytes/100 WBC (Bld) 6.7 % Normal . [facility] Comment on above: Performed By: #### C BC, T3T, TSH3, B12, [id number], CMP #### [address] Neutrophils (Bld) [#/Vol] 2.5 10*3/uL Normal 1.8-7.7 [facility] Comment on above: Performed By: #### C BC, T3T, TSH3, B12, [id number], CMP #### [address] Neutrophils/100 WBC (Bld) 45.8 % Normal . [facility] Comment on above: Performed By: #### C BC, T3T, TSH3, B12, [id number], CMP #### [address] NRBC% 0.1 /100{WBC} Normal 0-0.5 [facility] Comment on above: Performed By: #### C BC, T3T, TSH3, B12, [id number], CMP #### [address] Platelet mean volume (Bld) [Entitic vol] 9.9 fL Normal 6.3-10.7 [facility] Comment on above: Performed By: #### C BC, T3T, TSH3, B12, [id number], CMP #### [place] [address] [place] Platelets (Bld) [#/Vol] 263 10*3/uL Normal 150-450 [facility] Comment on above: Performed By: #### C BC, T3T, TSH3, B12, [id number], CMP #### [place] [address] [place] RBC (Bld) [#/Vol] 4.29 10*6/uL Normal 3.60-5.00 [facility] Comment on above: Performed By: #### C BC, T3T, TSH3, B12, [id number], CMP #### [address] WBC (Bld) [#/Vol] 5.4 10*3/uL Normal 3.8-11.6 [facility] Comment on above: Performed By: #### C BC, T3T, TSH3, B12, [id number], CMP #### [address] Comprehensive Metabolic Pane sonu 07-15-2023 Albumin [Mass/Vol] 4.9 g/dL Normal 3.5-5.7 [facility] Comment on above: Performed By: #### C BC, T3T, TSH3, B12, [id number], CMP #### [address] Albumin/Globulin [Mass ratio] 1.9 {ratio} Normal [facility] Comment on above: Performed By: #### C BC, T3T, TSH3, B12, [id number], CMP #### [address] ALP [Catalytic activity/Vol] 76 U/L Normal 34-104 [facility] Comment on above: Performed By: #### C BC, T3T, TSH3, B12, [id number], CMP #### [address] ALT [Catalytic activity/Vol] 13 U/L Normal 7-52 [facility] Comment on above: Performed By: #### C BC, T3T, TSH3, B12, [id number], CMP #### [address] Anion gap [Moles/Vol] 11.1 mmol/L Normal 6.0-15.0 [facility] Comment on above: Performed By: #### C BC, T3T, TSH3, B12, [id number], CMP #### [address] AST [Catalytic activity/Vol] 14 U/L Normal 13-39 [facility] Comment on above: Performed By: #### C BC, T3T, TSH3, B12, [id number], CMP #### [facility] [address] Bilirubin [Mass/Vol] 0.3 mg/dL Normal 0.3-1.0 [facility] Comment on above: Performed By: #### C BC, T3T, TSH3, B12, [id number], CMP #### [address] Calcium [Mass/Vol] 10.1 mg/dL Normal 8.6-10.3 [facility] Comment on above: Performed By: #### C BC, T3T, TSH3, B12, [id number], CMP #### [address] Chloride [Moles/Vol] 104 mmol/L Normal 98-107 [facility] Comment on above: Performed By: #### C BC, T3T, TSH3, B12, [id number], CMP #### [address] CO2 [Moles/Vol] 29.1 mmol/L Normal 21.0-31.0 [facility] Comment on above: Performed By: #### C BC, T3T, TSH3, B12, [id number], CMP #### [address] Creatinine [Mass/Vol] 0.61 mg/dL Normal 0.60-1.20 [facility] Comment on above: Performed By: #### C BC, T3T, TSH3, B12, [id number], CMP #### [address] GFR/1.73 sq M.predicted MDRD (S/P/Bld) [Vol rate/Area] mL/min/{1.73_m2} Normal [facility] Comment on above: Performed By: #### C BC, T3T, TSH3, B12, [id number], CMP #### [address] Globulin (S) [Mass/Vol] 2.6 g/dL Normal [facility] Comment on above: Performed By: #### C BC, T3T, TSH3, B12, [id number], CMP #### [facility] [address] Glucose [Mass/Vol] 72 mg/dL Normal 70-100 [facility] Comment on above: Result Comment: [facility] Glucose Reference Range is dependent on time and content of last meal. Glucose of more than 200 mg/dL in a nonstressed, ambulatory subject supports the diagnosis of Diabetes Mellitus. ADA recommended reference range Performed By: #### C BC, T3T, TSH3, B12, [id number], CMP #### [address] Potassium [Moles/Vol] 4.2 mmol/L Normal 3.5-5.1 [facility] Comment on above: Performed By: #### C BC, T3T, TSH3, B12, [id number], CMP #### [facility] [address] Protein [Mass/Vol] 7.5 g/dL Normal 6.4-8.9 [facility] Comment on above: Performed By: #### C BC, T3T, TSH3, B12, [id number], CMP #### [facility] [address] [place] [address] [place] Sodium [Moles/Vol] 140 mmol/L Normal 136-145 [facility] Comment on above: Performed By: #### C BC, T3T, TSH3, B12, [id number], CMP #### [facility] [address] [place] [address] [place] Urea nitrogen [Mass/Vol] 13 mg/dL Normal 7-25 [facility] Comment on above: Performed By: #### C BC, T3T, TSH3, B12, [id number], CMP #### [place] [address] [place] Creatinine [Mass/volume] in Serum or PlasmaOrdered By: Gertrude Oneil on 07-15-2023 Creatinine [Mass/Vol] 0.61 mg/dL 0.60-1.20 [facility] Eosinophils Auto (Bld) [#/Vo l]Ordered By: Gertrude Oneil on 07-15-2023 Eosinophils (Bld) [#/Vol] 0.1 10*3/uL 0.0-0.45 [facility] Eosinophils/100 WBC Auto (Bl d)Ordered By: Gertrude Oneil on 07-15-2023 Eosinophils/100 WBC (Bld) 2.8 % . [facility] Erythrocyte distribution wid th Auto (RBC) [Ratio]Ordered By: Gertrude Oneil on 07-15-2023 Erythrocyte distribution width (RBC) [Ratio] 13.4 % 11.9-15.3 [facility] Globulin Calc (S) [Mass/Vol] Ordered By: Gertrude Oneil on 07-15-2023 Globulin (S) [Mass/Vol] 2.6 g/dL [facility] Glucose [Mass/volume] in Ser um or PlasmaOrdered By: Gertrude Oneil on 07-15-2023 Glucose [Mass/Vol] 72 mg/dL 70-100 [facility] Comment on above: ADA recommended refe rence rangeRandom Glucose Reference Range is dependent on time and content of last meal. Glucose of more than 200 mg/dL in a nonstressed, ambulatory subject supports the diagnosis of Diabetes Mellitus. Hematocrit Auto (Bld) [Volum e fraction]Ordered By: Gertrude Oneil on 07-15-2023 Hematocrit (Bld) [Volume fraction] 37.4 % 34.0-46.4 [facility] Hemoglobin [Mass/volume] in BloodOrdered By: Gertrude Oneil on 07-15-2023 Hemoglobin (Bld) [Mass/Vol] 12.4 g/dL 11.8-15.4 [facility] Leukocytes [#/volume] correc adry for nucleated erythrocytes in Blood by Automated counOrdered By: Gertrude Oneil on 07-15-2023 WBC corrected for nucl RBC Auto (Bld) [#/Vol] 5.4 10*3/uL 3.8-11.6 [facility] Lymphocytes Auto (Bld) [#/Vo l]Ordered By: Gertrude Oneil on 07-15-2023 Lymphocytes (Bld) [#/Vol] 2.4 10*3/uL 1.00-4.8 [facility] Lymphocytes/100 WBC Auto (Bl d)Ordered By: Gertrude Oneil on 07-15-2023 Lymphocytes/100 WBC (Bld) 44.0 % . [facility] MCH Auto (RBC) [Entitic mass ]Ordered By: Gertrude Oneil on 07-15-2023 MCH (RBC) [Entitic mass] 29.0 pg 24.7-34.3 [facility] MCHC Auto (RBC) [Mass/Vol]Or dered By: Gertrude Oneil on 07-15-2023 MCHC (RBC) [Mass/Vol] 33.3 g/dL 32.0-35.0 [facility] MCV Auto (RBC) [Entitic vol] Ordered By: Gertrude Oneil on 07-15-2023 MCV (RBC) [Entitic vol] 87.1 fL 80-100 [facility] Monocytes Auto (Bld) [#/Vol] Ordered By: Gertrude Oneil on 07-15-2023 Monocytes (Bld) [#/Vol] 0.4 10*3/uL 0.0-0.8 [facility] Monocytes/100 WBC Auto (Bld) Ordered By: Gertrude Oneil on 07-15-2023 Monocytes/100 WBC (Bld) 6.7 % . [facility] Neutrophils Auto (Bld) [#/Vo l]Ordered By: Gertrude Oneil on 07-15-2023 Neutrophils (Bld) [#/Vol] 2.5 10*3/uL 1.8-7.7 [facility] Neutrophils/100 WBC Auto (Bl d)Ordered By: Gertrude Oneil on 07-15-2023 Neutrophils/100 WBC (Bld) 45.8 % . [facility] No Panel InformationOrdered By: Gertrude Oneil on 07-15-2023 Estimated GFR (CKD-EPI) > 60.0 mL/Min [facility] Creatinine Clearance (Chem N/A [facility] Nucleated erythrocytes [Pres ence] in Blood by Automated countOrdered By: Gertrude Oneil on 07-15-2023 Nucleated RBC Auto Ql (Bld) 0.1 /100{WBC} 0-0.5 [facility] Platelet mean volume Auto (B ld) [Entitic vol]Ordered By: Gertrude Oneil on 07-15-2023 Platelet mean volume (Bld) [Entitic vol] 9.9 fL 6.3-10.7 [facility] Platelets Auto (Bld) [#/Vol] Ordered By: Gertrude Oneil on 07-15-2023 Platelets (Bld) [#/Vol] 263 10*3/uL 150-450 [facility] Potassium [Moles/volume] in Serum or PlasmaOrdered By: Gertrude Oneil on 07-15-2023 Potassium [Moles/Vol] 4.2 mmol/L 3.5-5.1 [facility] Protein [Mass/volume] in Ser um or PlasmaOrdered By: Gertrude Oneil on 07-15-2023 Protein [Mass/Vol] 7.5 g/dL 6.4-8.9 [facility] RBC Auto (Bld) [#/Vol]Ordere d By: Gertrude Oneil on 07-15-2023 RBC (Bld) [#/Vol] 4.29 10*6/uL 3.60-5.00 [facility] Serum or plasma albumin/glob ulin mass ratioOrdered By: Gertrude Oneil on 07-15-2023 Albumin/Globulin [Mass ratio] 1.9 {ratio} [facility] Serum or plasma anion gap de terminationOrdered By: Gertrude Oneil on 07-15-2023 Anion gap [Moles/Vol] 11.1 mmol/L 6.0-15.0 [facility] Sodium [Moles/volume] in Ser um or PlasmaOrdered By: Gertrude Oneil on 07-15-2023 Sodium [Moles/Vol] 140 mmol/L 136-145 [facility] Thyroid Stimulating Hormoneo n 07-15-2023 TSH Qn 0.94 m[IU]/L Normal 0.45-5.33 [facility] Comment on above: Performed By: #### C BC, T3T, TSH3, B12, [id number], CMP #### [facility] [address] Thyrotropin [Units/volume] i n Serum or PlasmaOrdered By: Gertrude Oneil on 07-15-2023 TSH Qn 0.94 m[IU]/L 0.45-5.33 [facility] Triiodothyronine (T3) Totalo n 07-15-2023 Triiodothyronine (T3) Total 1.36 ng/mL Normal 0.87-1.78 [facility] Comment on above: Performed By: #### C BC, T3T, TSH3, B12, [id number], CMP #### [facility] [address] Triiodothyronine (T3) [Mass/ volume] in Serum or PlasmaOrdered By: Gertrude Oneil on 07-15-2023 T3 [Mass/Vol] 1.36 ng/mL 0.87-1.78 [facility] Urea nitrogen [Mass/volume] in Serum or PlasmaOrdered By: Gertrude Oneil on 07-15-2023 Urea nitrogen [Mass/Vol] 13 mg/dL 7-25 [facility] Vitamin B12on 07-15-2023 Cobalamin (Vitamin B12) [Mass/Vol] 543 pg/mL Normal 180-914 [facility] Comment on above: Performed By: #### C BC, T3T, TSH3, B12, [id number], CMP #### [facility] [address] Vitamin B12 ser/plasOrdered By: Gertrude Oneil on 07-15-2023 Cobalamin (Vitamin B12) [Mass/Vol] 543 pg/mL 180-914 [facility] Vitamin D 25 Hydroxy Totalon 07-15-2023 Vitamin D 25 Hydroxy Total 31.6 ng/mL Normal 30-100 [facility] Comment on above: Result Comment: [place] MIN D STATUS 25(OH)VITAMIN D RANGE (ng/mL) Deficient <20 Insufficient 20 to <30 Sufficient 30 to 100 Reference: Delmis Palacios, Lilly SELBY, et al. Evaluation,treatment, and prevention of vitamin D deficiency; an Endocrine Society clinical practice guideline. JCEM. 2010; 96(7):191-. PERFORMED BY: [facility] [address] [place] [address] PATHOLOGIST POLICE ARTIST TIERA RAMIREZ M.D. Performed By: #### C BC, T3T, TSH3, B12, [id number], CMP #### [facility] [address] [place] [id number] [facility] Vitamin D+Metabolites [Mass/ volume] in Serum or PlasmaOrdered By: Gertrude Oneil on 07-15-2023 Vitamin D+Metabolites [Mass/Vol] 31.6 ng/mL 30-100 [facility] Comment on above: VITAMIN D STATUS 25( [place])VITAMIN D RANGE (ng/mL) Deficient <20 Insufficient 20 to <30Sufficient 30 to 100Reference: Delmis Palacios, Lilly SELBY, et al. Evaluation,treatment, and prevention of vitamin D deficiency; an Endocrine Society clinical practice guideline. JCEM. 2010; 96(7):1911-30. WBC Auto (Bld) [#/Vol]Ordere d By: Gertrude Oneil on 07-15-2023 WBC (Bld) [#/Vol] 5.4 10*3/uL 3.8-11.6 [facility] Consent Formson 05-13-2023 Consent Forms [id number]#[id number] [facility] [id number] [facility] Clinical Summary[facility] 2022 ED Clinical Summary [facility] ? Urgent Care [address] [place] [address] [id number] Clinical Summary PERSON INFORMATION Name: SARAN SIMPSON Age: 22 Years Sex: FEMALE : 2000 MRN: Acct#: Visit Reason: Medical screening exam; WORK PHYSICAL Arrival: 05/04/2023 11:23:15 Discharge: 05/04/2023 12:04:00 LOS: 000 00:41 Check In: 05/04/2023 11:23:15 Checkout: 05/04/2023 12:04:00 Address: [address] [place] [address] PCP: Haley Dennison CNP PROVIDER INFORMATION Provider Role Assigned Unassigned Maninder Greenberg LEAD CARPENTER Nurse 05/04/2023 11:27:07 Bobo Lowe ED PA 05/04/2023 11:49:39 VITALS INFORMATION Vital Sign Triage Latest Temperature Tympanic Temperature Temporal Artery Pulse Rate O2 Sat 99 % 99 % Respiratory Rate Blood Pressure /87 mmHg /87 mmHg MEDICAL INFORMATION Medications Given: Allergy Information: No known allergies PHYSICIAN DOCUMENTATION DISCHARGE INFORMATION: Discharge Disposition: Home Discharge Location: Home PATIENT EDUCATION INFORMATION Instructions: Follow-Up: DIAGNOSIS: 1:Routine medical exam Patient Understands: Yes - Patient/family/caregiv er verbalizes understanding of instructions given Comment: Normal [facility] ED Patient Summaryon 023 ED Patient Summary [facility] ? Urgent Care [address] [place] [address] PATIENT DISCHARGE INSTRUCTIONS Patient Information Name: SARAN SIMPSON Age: 22 Years Date of : 2000 Reason For Visit: Medical screening exam; WORK PHYSICAL Arrival Time: 05/04/2023 11:23:15 Primary Care Physician: Haley Dennison CNP Attending Physician: Bobo Lowe Comment: Patient Education Medication Information: The exam and treatment you received today in the [facility] Emergency Department were for an urgent problem and are not intended as complete care. It is important for you to follow up with a doctor, nurse practitioner, or physician?s assistant chief train dispatcher for ongoing care. If your symptoms become worse or you do not improve as expected and you are unable to reach your usual health care provider, you should return to the Emergency Department, we are available 24 hours a day. For those patients who have received Radiology results, the interpretation of your X-ray as given to you by our Emergency Department physician is only a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 determined that the patient reached maximal improvement duringinpatient hospitalization, and she was discharged home in the care of herfather.MENTAL STATUS EXAMINATION: At discharge, the patient is a [id number] who appeared her stated age. She is alert and oriented to person,place, and time. She is in no acute distress and had no involuntarymovements. She was appropriately dressed and groomed. Her speech wasnormal in rate, rhythm, and tone. She described her mood as good andaffect was congruent with mood and appropriate and euthymic. The patient'sthought processes were linear and age appropriate. She denied any suicidalor homicidal ideation, intent, or plan. She denied any auditory or visualhallucinations. Attention and concentration are fair. Intelligence isaverage. Insight and judgment are appropriate and fair.DISCHARGE DIAGNOSES:Weatherly I: Mood disorder, not otherwise specified.Weatherly II: Deferred.Weatherly III: None.Weatherly IV: Snvc-wt-wxnbwbgi psychosocial stressors.Weatherly V: Global assessment of function is 60%.DISCHARGE MEDICATIONS: Celexa 40 mg daily.FOLLOWUP: The patient is to follow up with Dr. Garcia on 08/04/2017 at 1p.m. at [facility]. The patient is to follow up with her therapist on07/24/2017 at 11 a.m. at [facility] also.Time on discharge 31 minElectronically Signed by:Clement Jackson M.D. 07/29/2017 02:45 P Clement Jackson M.D. I personally saw this patient on the day of the encounter, performed thekey portion(s) of the service and participated in the management andconfirm the resident's documentation. Please note there may be anadditional personal documentation from me. Date Dict: 07/21/2017/02:44 P/ANSHU Lopezate Trans: 07/22/2017 10:52 A/[id number] Normal [facility] TOX PANEL URINEon 07-18-2017 50 THC Positive Abnormal NEGATIVE [facility] Comment on above: Order Comment: No: D o not add to previous draw Performed By: #### 3 1079 ####[facility] [place] [address], [facility] BARBITURATES Negative Normal NEGATIVE The [facility] Comment on above: Order Comment: No: D o not add to previous draw Performed By: #### 3 1079 ####[facility] [place] [address], [place] MONO AMPHET Negative Normal NEGATIVE The [facility] Comment on above: Order Comment: No: D o not add to previous draw Performed By: #### 3 1079 ####[facility] [place] [address], [place] PROPOXYPHENE Negative Normal NEGATIVE [facility] Comment on above: Order Comment: No: D o not add to previous draw Performed By: #### 3 1079 ####[facility] [place] [address], [place] TRICYCLICS Negative Normal NEGATIVE [facility] Comment on above: Order Comment: No: D o not add to previous draw Performed By: #### 3 1079 ####[facility] [place] [address], [place] Urine, benzodiazepines presence Negative Normal NEGATIVE [facility] Comment on above: Order Comment: No: D o not add to previous draw Performed By: #### 3 1079 ####[facility] [place] [address], [place] Urine, cocaine presence Negative Normal NEGATIVE [facility] Comment on above: Order Comment: No: D o not add to previous draw Performed By: #### 3 1079 ####[facility] [place] [address], [place] Urine, methadone presence Negative Normal NEGATIVE [facility] Comment on above: Order Comment: No: D o not add to previous draw Performed By: #### 3 1079 ####[facility] [place] [address], [place] Urine, opiates presence Negative Normal NEGATIVE [facility] Comment on above: Order Comment: No: D o not add to previous draw Performed By: #### 3 1079 ####[facility] [facility].[address] Urine, phencyclidine presence Negative Normal NEGATIVE [facility] Comment on above: Order Comment: No: D o not add to previous draw Performed By: #### 3 1079 ####[facility] [facility] [place] [address], [facility] URINALYSISon 07-18-2017 Bilirubin (total) Negative Normal NEGATIVE The [facility] Comment on above: Order Comment: No: D o not add to previous draw Performed By: #### 1 0008 ####[facility] [facility].[address] BLOOD Negative Normal NEGATIVE [facility] Comment on above: Order Comment: No: D o not add to previous draw Performed By: #### 1 0008 ####[facility] EPIS MANY Abnormal FEW [facility] Comment on above: Order Comment: No: D o not add to previous draw Performed By: #### 1 0008 ####[facility] [place] [address], [facility] Erythrocytes (RBC) 0-2 Abnormal 0-0 [facility] Comment on above: Order Comment: No: D o not add to previous draw Performed By: #### 1 0008 ####[facility] [facility].[address] Glucose mass conc Negative Normal NEGATIVE [facility] Comment on above: Order Comment: No: D o not add to previous draw Performed By: #### 1 0008 ####[facility] [facility] [place] [address], [facility] KETONE Negative Normal NEGATIVE [facility] Comment on above: Order Comment: No: D o not add to previous draw Performed By: #### 1 0008 ####[facility] [facility] [place] [address], [facility] LEUK PADMINI Negative Normal NEGATIVE [facility] Comment on above: Order Comment: No: D o not add to previous draw Performed By: #### 1 0008 ####[facility] [facility] [place] [address], [facility] MUCUS THREADS MOD Abnormal NONE SEEN The [facility] Comment on above: Order Comment: No: D o not add to previous draw Performed By: #### 1 0008 ####[facility] [facility] [place] [address], [facility] pH of blood 5.0 [pH] Normal 5.0-8.0 [facility] Comment on above: Order Comment: No: D o not add to previous draw Performed By: #### 1 0008 ####[facility] [facility] [place] [address], [facility] Protein 30 mg/dL Abnormal NEGATIVE [facility] Comment on above: Order Comment: No: D o not add to previous draw Performed By: #### 1 0008 ####[facility] [facility] [place] [address], [facility] SPEC GRAV 1.028 High 1.015-1.020 [facility] Comment on above: Order Comment: No: D o not add to previous draw Performed By: #### 1 0008 ####[facility] [facility] [place] [address], [facility] Urine, appearance SL CLOUDY Abnormal CLEAR [facility] Comment on above: Order Comment: No: D o not add to previous draw Performed By: #### 1 0008 ####[facility] [facility] [place] [address], [facility] Urine, color YELLOW Normal YELLOW [facility] Comment on above: Order Comment: No: D o not add to previous draw Performed By: #### 1 0008 ####[facility] Urine, nitrite presence Negative Normal NEGATIVE [facility] Comment on above: Order Comment: No: D o not add to previous draw Performed By: #### 1 0008 ####[facility] [facility].[address] WBC UA 0-2 Abnormal 0-0 [facility] Comment on above: Order Comment: No: D o not add to previous draw Performed By: #### 1 0008 ####[facility] CBC W/DIFFon 07-17-2017 ABS BASOPHILS 0.0 10*3/uL Normal 0.0-0.3 The [facility] Comment on above: Order Comment: No: D o not add to previous draw Performed By: #### 5 3 ####[facility] ABS IMM GRANS 0.0 10*3/uL Normal 0.0-0.2 [facility] Comment on above: Order Comment: No: D o not add to previous draw Performed By: #### 5 3 ####[facility] Basophils Auto #/vol (Bld) 0.3 % Normal 0.0-2.0 [facility] Comment on above: Order Comment: No: D o not add to previous draw Performed By: #### 5 0103 ####[facility] Eosinophils 0.1 10*3/uL Normal 0.0-0.5 [facility] Comment on above: Order Comment: No: D o not add to previous draw Performed By: #### 5 0103 ####[facility] [place] [address], [place] Eosinophils/100 leukocytes 1.6 % Normal 0.0-4.0 [facility] Comment on above: Order Comment: No: D o not add to previous draw Performed By: #### 5 0103 ####[facility] Erythrocyte distribution width Auto Ratio (RBC) 13.2 % Normal 11.5-15.5 [facility] Comment on above: Order Comment: No: D o not add to previous draw Performed By: #### 5 0103 ####[facility] [facility] [place] [address], [facility] Erythrocytes (RBC) 0 % Normal 0-0 [facility] Comment on above: Order Comment: No: D o not add to previous draw Performed By: #### 5 0103 ####[facility] [facility].[address] Erythrocytes (RBC) 4.09 10*6/uL Low 4.10-5.20 [facility] Comment on above: Order Comment: No: D o not add to previous draw Performed By: #### 5 0103 ####[facility]3000 [facility].[address] Hematocrit (HCT) 36.1 % Normal 34.0-48.0 The [facility] Comment on above: Order Comment: No: D o not add to previous draw Performed By: #### 5 0103 ####[facility] [facility].[address] Hemoglobin mass conc (Bld) 12.0 g/dL Normal 11.5-16.0 [facility] Comment on above: Order Comment: No: D o not add to previous draw Performed By: #### 5 0103 ####[facility] [facility] [place] [address], [facility] IMMATURE GRANS 0.3 % Normal 0.0-1.0 The [facility] Comment on above: Order Comment: No: D o not add to previous draw Performed By: #### 5 0103 ####[facility] Lymphocytes 3.6 10*3/uL Normal 1.1-6.1 The [facility] Comment on above: Order Comment: No: D o not add to previous draw Performed By: #### 5 0103 ####[facility] [facility].[address] Lymphocytes/100 leukocytes 48.1 % High 25.0-45.0 [facility] Comment on above: Order Comment: No: D o not add to previous draw Performed By: #### 5 0103 ####[facility]3000 [facility].[address] MCH 29.3 pg Normal 24.0-35.0 [facility] Comment on above: Order Comment: No: D o not add to previous draw Performed By: #### 5 0103 ####[facility] [facility].[address] MCHC mass conc (RBC) 33.2 g/dL Normal 30.0-37.0 [facility] Comment on above: Order Comment: No: D o not add to previous draw Performed By: #### 5 0103 ####[facility]3000 [facility].[address] MCV 88.3 fL Normal 75.0-95.0 [facility] Comment on above: Order Comment: No: D o not add to previous draw Performed By: #### 5 0103 ####[facility] [place] [address].[place] [address], [facility] Monocytes 0.4 10*3/uL Normal 0.1-1.1 [facility] Comment on above: Order Comment: No: D o not add to previous draw Performed By: #### 5 0103 ####[facility] [place] [address], [place] MONOS 5.8 % Normal 3.0-8.0 [facility] Comment on above: Order Comment: No: D o not add to previous draw Performed By: #### 5 0103 ####[facility] [place] [address], [place] Neutrophils 3.3 10*3/uL Normal 1.8-10.1 [facility] Comment on above: Order Comment: No: D o not add to previous draw Performed By: #### 5 0103 ####[facility] [place] [address], [facility] Neutrophils/100 leukocytes 43.9 % Normal 39.0-75.0 [facility] Comment on above: Order Comment: No: D o not add to previous draw Performed By: #### 5 0103 ####[facility] [place] [address], [facility] PLAT CNT 289 10*3/uL Normal 150-450 [facility] Comment on above: Order Comment: No: D o not add to previous draw Performed By: #### 5 0103 ####[facility] [place] [address], [facility] WBC (Leukocytes) 7.5 10*3/uL Normal 4.5-13.5 [facility] Comment on above: Order Comment: No: D o not add to previous draw Performed By: #### 5 0103 ####[facility] [place] [address], [facility] COMP METABOLIC PANELon 07-17 Alanine aminotransferase (ALT) 8 U/L Normal 7-52 The [facility] Comment on above: Order Comment: No: D o not add to previous draw Performed By: #### 4 6413, 50534, 20803, 29334, 02541 ####[facility] [id number], [facility] Albumin 4.1 g/dL Normal 3.5-5.7 [facility] Comment on above: Order Comment: No: D o not add to previous draw Performed By: #### 4 6413, 10681, 38361, 15473, 22247 ####[facility] [place] [address], [facility] ALKALINE PHOSPH 29 IU/L Low 40-460 The [facility] Comment on above: Order Comment: No: D o not add to previous draw Performed By: #### 4 6413, 71564, 10692, 93484, 40457 ####[facility] [place] [address], [facility] Aspartate aminotransferase (AST) 14 U/L Normal 13-39 The [facility] Comment on above: Order Comment: No: D o not add to previous draw Performed By: #### 4 6413, 45970, 03522, 11998, 43359 ####[facility] [place] [address], [facility] Bilirubin (total) 0.4 mg/dL Normal 0.3-1.0 [facility] Comment on above: Order Comment: No: D o not add to previous draw Performed By: #### 4 6413, 81330, 48240, 10388, 78984 ####[facility] [place] [address], [place] Calcium 9.4 mg/dL Normal 8.6-10.3 [facility] Comment on above: Order Comment: No: D o not add to previous draw Performed By: #### 4 6413, 71794, 69706, 19897, 81934 ####[facility] [place] [address], [place] Chloride 105 mmol/L Normal 98-107 [facility] Comment on above: Order Comment: No: D o not add to previous draw Performed By: #### 4 6413, 30068, 35643, 62042, 18749 ####[facility] [place] [address], [facility] CO2 24 mmol/L Normal 21-31 [facility] Comment on above: Order Comment: No: D o not add to previous draw Performed By: #### 4 6413, 38937, 30218, 33479, 88899 ####[facility] [place] [address], [facility] Creatinine 0.67 mg/dL Normal 0.60-1.20 [facility] Comment on above: Order Comment: No: D o not add to previous draw Performed By: #### 4 6413, 39712, 86138, 24814, 58750 ####[facility] eGFR (black) Calculation not validated for patients under 18 years Abnormal >60 [facility] Comment on above: Order Comment: No: D o not add to previous draw Performed By: #### 4 6413, 68014, 50872, 17597, 76463 ####[facility] [place] [address], [facility] eGFR (non-black) Calculation not validated for patients under 18 years Abnormal >60 [facility] Comment on above: Order Comment: No: D o not add to previous draw Performed By: #### 4 6413, 90620, 67063, 53595, 40519 ####[facility] [place] [address], [facility] Glucose mass conc 81 mg/dL Normal 70-100 The [facility] Comment on above: Order Comment: No: D o not add to previous draw Performed By: #### 4 6413, 88673, 46420, 74515, 09467 ####[facility] [place] [address], [facility] Potassium molar conc 3.6 mmol/L Normal 3.5-5.1 [facility] Comment on above: Order Comment: No: D o not add to previous draw Performed By: #### 4 6413, 63761, 68610, 18053, 30468 ####[facility] [place] [address], [facility] Protein 6.6 g/dL Normal 6.0-8.3 [facility] Comment on above: Order Comment: No: D o not add to previous draw Performed By: #### 4 6413, 95389, 74078, 09445, 65178 ####[facility] [place] [address], [facility] Sodium 137 mmol/L Normal 136-145 [facility] Comment on above: Order Comment: No: D o not add to previous draw Performed By: #### 4 6413, 55152, 79534, 18804, 37063 ####[facility] Urea nitrogen 15 mg/dL Normal 7-25 The [facility] Comment on above: Order Comment: No: D o not add to previous draw Performed By: #### 4 6413, 20403, 01520, 61011, 71992 ####[facility] FREE T3on 07-17-2017 Triiodothyronine (T3) free 3.7 pg/mL Normal 2.5-3.9 [facility] Comment on above: Order Comment: No: D o not add to previous draw Performed By: #### 4 6413, 34215, 16772, 71438, 61194 ####[facility] [place] [address], [facility] FREE T4on 07-17-2017 Thyroxine (T4) free 0.81 ng/dL Normal 0.71-1.85 [facility] Comment on above: Order Comment: No: D o not add to previous draw Performed By: #### 4 6413, 19115, 46640, 43688, 40944 ####[facility] [facility].[address] LIPID PROFILEon 07-17-2017 Cholesterol 191 mg/dL High 120-170 [facility] Comment on above: Order Comment: No: D o not add to previous draw Result Comment: CHOL ESTEROL REFERENCE RANGE:20 YEARS AND OLDER CARDIOVASCULAR RISKLess than 200 mg/dl Low Llhg387 to 239 mg/dl Borderline Vpcw411 mg/dl and greater High Risk Performed By: #### 4 6413, 01209, 48718, 53051, 67670 ####[facility] [facility].[address] Cholesterol to HDL Ratio 4.3 {ratio} Normal .0-4.5 [facility] Comment on above: Order Comment: No: D o not add to previous draw Performed By: #### 4 6413, 53928, 15129, 54813, 75297 ####[facility] [facility].[address] HDL Cholesterol 44 mg/dL Normal 23-92 The [facility] Comment on above: Order Comment: No: D o not add to previous draw Result Comment: Slig ht variation in normal range could be due to gender and/or age.HDL CHOLESTEROL REFERENCE RANGE:20 years and older Cardiovascular Risk> or =60 mg/dL [id number] TO 59 mg/dL Low Risk<40 mg/dL High Risk Performed By: #### 4 6413, 47306, 29868, 75049, 27069 ####[facility] [facility].[address] LDL Cholesterol 128 mg/dL Normal 0-130 The [facility] Comment on above: Order Comment: No: D o not add to previous draw Result Comment: LDL IS A CALCULATIONLDL IS ONLY VALID IF THE TRIG IS LESS THAN 400. Performed By: #### 4 6413, 38485, 76999, 12585, 42018 ####[facility] NON-HDL CHOLESTEROL 147 mg/dL Normal [facility] Comment on above: Order Comment: No: D o not add to previous draw Performed By: #### 4 6413, 17480, 82860, 43451, 31584 ####[facility] Triglyceride 97 mg/dL Normal 37-148 The [facility] Comment on above: Order Comment: No: D o not add to previous draw Result Comment: TRIG LYCERIDE REFERENCE RANGE:20 YEARS AND OLDER CARDIOVASCULAR RISKLESS THAN 150 mg/dl LOW [id number] TO 199 mg/dl BORDERLINE ENVV615 mg/dl AND GREATER HIGH RISK Performed By: #### 4 6413, 85131, 75425, 12192, 88732 ####[facility] VLDL CHOL 19 mg/dL Normal 0-40 [facility] Comment on above: Order Comment: No: D o not add to previous draw Performed By: #### 4 6413, 93905, 80083, 67353, 67607 ####[facility] [facility].[address] SERUM TESTon 07-17 TEST Negative Normal The [facility] Comment on above: Order Comment: No: D o not add to previous draw Performed By: #### 4 6473 ####[facility] TSHon 07-17-2017 Thyroid stimulating hormone (TSH) 2.22 MICRO-IU/ML Normal 0.34-5.60 [facility] Comment on above: Order Comment: No: D o not add to previous draw Performed By: #### 4 6413, 53269, 91538, 52431, 41987 ####[facility] [place] [address], [facility] Vital Signs Date Time Vital Sign Value Performing Clinician Facility 11-28-2022 13:55-0400 Body height 153.03 cm Rosemarie Ac Other [facility] Other 11-28-2022 13:55-0400 Body mass index (BMI) [Ratio] 27.69 kg/m2 Rosemarie Ac Other [facility] Other 11-28-2022 13:55-0400 Body temperature 97.5 [degF] Rosemarie Ac Other [facility] Other 11-28-2022 13:55-0400 Body weight 64.86 kg Rosemarie Ac Other [facility] Other 11-28-2022 13:55-0400 Diastolic blood pressure 82 mm[Hg] Rosemarie Ac Other [facility] Other 11-28-2022 13:55-0400 Respiratory rate 18 /min Rosemarie Ac Other [facility] Other 11-28-2022 13:55-0400 SaO2% (BldA) [Mass fraction] 98 % Rosemarie Ac Other [facility] Other 11-28-2022 13:55-0400 Systolic blood pressure 114 mm[Hg] Rosemarie Spraguemond Other [facility] Other 05-15-2022 14:30-0500 Body height 153.03 cm Haley Dennison Other [facility] Other 05-15-2022 14:30-0500 Body mass index (BMI) [Ratio] 21.69 kg/m2 Haley Valenciamckinley Other [facility] Other 05-15-2022 14:30-0500 Body weight 50.8 kg Haley Maryjuliana Other [facility] Other 05-15-2022 14:30-0500 Diastolic blood pressure 73 mm[Hg] Haley Valenciamckinley Other [facility] Other 05-15-2022 14:30-0500 SaO2% (BldA) [Mass fraction] 100 % Haley Valenciamckinley Other [facility] Other 05-15-2022 14:30-0500 Systolic blood pressure 108 mm[Hg] Haley Quinnraza Other [facility] Other 03-27-2022 14:15-0400 Body height 153.03 cm Harmony Scarlett Other [facility] Other 03-27-2022 14:15-0400 Body mass index (BMI) [Ratio] 21.3 kg/m2 Harmony Pantoja Other [facility] Other 03-27-2022 14:15-0400 Body temperature 96.8 [degF] Harmony Scarlett Other [facility] Other 03-27-2022 14:15-0400 Body weight 49.9 kg Harmony Scarlett Other [facility] Other 03-27-2022 14:15-0400 Respiratory rate 18 /min Harmony Pantoja Other [facility] Other 03-27-2022 14:15-0400 SaO2% (BldA) [Mass fraction] 99 % Harmony Pantoja Other [facility] Other 01-15-2022 15:00-0400 Body height 153.03 cm Rosemarie Yashira Other [facility] Other 01-15-2022 15:00-0400 Body mass index (BMI) [Ratio] 21.3 kg/m2 Rosemarie Yashira Other [facility] Other 01-15-2022 15:00-0400 Body temperature 98.8 [degF] Rosemarie Yashira Other [facility] Other 01-15-2022 15:00-0400 Body weight 49.9 kg Rosemarie Yashira Other [facility] Other 01-15-2022 15:00-0400 Respiratory rate 18 /min Rosemarie Spraguemond Other [facility] Other 01-15-2022 15:00-0400 SaO2% (BldA) [Mass fraction] 99 % Rosemarie Ysahira Other [facility] Other 12-25-2021 12:15-0400 Body height 153.03 cm Rosemarie Yashira Other [facility] Other 12-25-2021 12:15-0400 Body mass index (BMI) [Ratio] 20.33 kg/m2 Rosemarie Yashira Other [facility] Other 12-25-2021 12:15-0400 Body temperature 98.6 [degF] Rosemarie Ac Other [facility] Other 12-25-2021 12:15-0400 Body weight 47.63 kg Rosemarie Ac Other [facility] Other 12-25-2021 12:15-0400 Respiratory rate 18 /min Rosemarie Ac Other [facility] Other 12-25-2021 12:15-0400 SaO2% (BldA) [Mass fraction] 98 % Rosemarie Ac Other [facility] Other 06-10-2021 14:00-0500 Body height 153.03 cm Haley Dennison Other [facility] Other 06-10-2021 14:00-0500 Body mass index (BMI) [Ratio] 19.56 kg/m2 Haley Dennison Other [facility] Other 06-10-2021 14:00-0500 Body temperature 98 [degF] Haley Dennison Other [facility] Other 06-10-2021 14:00-0500 Body weight 45.81 kg Haley Dennison Other [facility] Other 06-10-2021 14:00-0500 Diastolic blood pressure 60 mm[Hg] Haley Dennison Other [facility] Other 06-10-2021 14:00-0500 Respiratory rate 16 /min Haley Dennison Other [facility] Other 06-10-2021 14:00-0500 Systolic blood pressure 96 mm[Hg] Haley Juma Other [facility] Other 05-06-2021 12:30-0500 Body height 153.03 cm Haley Juma Other [facility] Other 05-06-2021 12:30-0500 Body mass index (BMI) [Ratio] 18.86 kg/m2 Haley Juma Other [facility] Other 05-06-2021 12:30-0500 Body weight 44.18 kg Haley Juma Other [facility] Other 05-06-2021 12:30-0500 Diastolic blood pressure 62 mm[Hg] Haley Dennison Other [facility] Other 05-06-2021 12:30-0500 Respiratory rate 16 /min Haley Juma Other [facility] Other 05-06-2021 12:30-0500 SaO2% (BldA) [Mass fraction] 99 % Haley Dennison Other [facility] Other 05-06-2021 12:30-0500 Systolic blood pressure 102 mm[Hg] Haley Dennison Other [facility] Other Encounters Encounter Date Encounter Type Care Provider Facility Start: 07-15-2023 End: 07-15-2023 ambulatory Gertrude Oneil Facility:[facility] Start: 07-15-2023 End: 07-15-2023 ambulatory PENNY Oneil Work Phone: [facility] Work Phone: Start: 07-15-2023 End: 07-15-2023 Patient encounter procedure PENNY Oneil Work Phone: [facility] Work Phone: Start: 05-04-2023 End: 05-04-2023 ambulatory Haley Dennison Facility:[facility] Start: 03-13-2023 ambulatory Luke Gonsalves acility:[facility] Start: 11-28-2022 End: 11-28-2022 ambulatory Rosemarie Ac Other [facility] Other Start: 11-28-2022 Office outpatient visit 15 minutes Rosemarie Ac [facility] Start: 08-15-2022 End: 08-15-2022 ambulatory Haley Maryr Other [facility] Other Start: 08-15-2022 Telephone encounter Haley Valenciaaye her [facility] Start: 05-16-2022 End: 05-16-2022 ambulatory Haley Valenciarbacher Other [facility] Other Start: 05-16-2022 Telephone encounter Haley Bhavna her [facility] Start: 05-15-2022 End: 05-15-2022 ambulatory Haely Valenciarbacher Other [facility] Other Start: 05-15-2022 Office outpatient visit 15 minutes Haley Quinnacher [facility] Start: 05-05-2022 End: 05-05-2022 ambulatory Haley Quinnacher Other [facility] Other Start: 05-05-2022 Telephone encounter Haley Huggins her [facility] Start: 03-27-2022 End: 03-27-2022 ambulatory Harmony Pantoja Other [facility] Other Start: 03-27-2022 Office outpatient visit 25 minutes Harmony Pantoja [facility] Start: 01-16-2022 End: 01-16-2022 ambulatory Haley Tyrajuliana Other [facility] Other Start: 01-16-2022 Telephone encounter Haley Huggins her [facility] Start: 01-15-2022 End: 01-15-2022 ambulatory Rosemarie Ac Other [facility] Other Start: 01-15-2022 Office outpatient visit 25 minutes Rosemarie Yashira [facility] Start: 12-27-2021 End: 12-27-2021 ambulatory Haley Juma Other [facility] Other Start: 12-27-2021 Telephone encounter Haley Huggins her [facility] Start: 12-25-2021 End: 12-25-2021 ambulatory Rosemarie Ac Other [facility] Other Start: 12-25-2021 Office outpatient visit 15 minutes Rosemarie Yashira [facility] Start: 07-18-2021 End: 07-18-2021 ambulatory Tristin Theodore Other [facility] Other Start: 07-18-2021 Telephone encounter Tristin Gonsalves [employer] Start: 06-14-2021 End: 06-14-2021 ambulatory Haley Dennison Other [facility] Other Start: 06-14-2021 Telephone encounter Haley Huggins her [employer] Start: 06-10-2021 End: 06-10-2021 ambulatory Haley Dennison Other [facility] Other Start: 06-10-2021 Office outpatient visit 25 minutes Haley Dennison [facility] Start: 05-23-2021 End: 05-23-2021 ambulatory Haley Dennison Other [facility] Other Start: 05-23-2021 Telephone encounter Haley Huggins her [facility] Start: 05-16-2021 End: 05-16-2021 ambulatory Elliot Hammond Other [facility] Other Start: 05-16-2021 Telephone encounter Elliot [employer] [employer] Start: 05-13-2021 End: 05-13-2021 ambulatory Haley Dennison Other [facility] Other Start: 05-13-2021 Telephone encounter Haley Huggins her [employer] Start: 05-06-2021 End: 05-06-2021 ambulatory Haley Dennison Other [facility] Other Start: 05-06-2021 Office outpatient visit 25 minutes Haley Dennison [facility] Start: 09-22-2017 End: 09-22-2017 Ambulatory DEBORA HUI Facility: Plan of Treatment Date Care Activity Detail Author Insulin [Units/volum e] in Serum or Plasma [facility] enter Testosterone Free [M ass/volume] in Serum or Plasma [facility] enter Immunizations Immunization Date Immunization Notes Care Provider Francie navas 05-13-2010 varicella virus vaccine Polina Dennison Other [facility] Other 02-04-2006 diphtheria, tetanus toxoids and acellular pertussis vaccine Haley Quinnacher Other [facility] Other 02-04-2006 measles, mumps and rubella virus vaccine Haley Valenciarbacher Other [facility] Other 02-04-2006 poliovirus vaccine, inactivated Haley Quinnacher Other [facility] Other 10-20-2001 diphtheria, tetanus toxoids and acellular pertussis vaccine Haley Quinnacher Other [facility] Other 10-20-2001 measles, mumps and rubella virus vaccine Haley Quinnacher Other [facility] Other 09-20-2001 varicella virus vaccine Polina Valenciamckinley Other [facility] Other 08-16-2001 haemophilus influenz ae type b vaccine, PRP-OMP conjugate Haley Valenciasarayr Other [facility] Other 08-16-2001 measles, mumps and rubella virus vaccine Haley Quinnacher Other [facility] Other 08-16-2001 poliovirus vaccine, inactivated Haley Quinnacher Other [facility] Other 04-12-2001 diphtheria, tetanus toxoids and acellular pertussis vaccine Haley Quinnacher Other [facility] Other 04-12-2001 haemophilus influenz ae type b vaccine, PRP-OMP conjugate Haley Valenciarbacher Other [facility] Other 04-12-2001 hepatitis B vaccine, pediatric or pediatric/adolescent dosage Haley Rohrbacher Other [facility] Other 04-12-2001 pneumococcal polysaccharide vaccine, 23 valent Haley Rohrbacher Other [facility] Other 2000 diphtheria, tetanus toxoids and acellular pertussis vaccine Haley Rohrbacher Other [facility] Other 2000 haemophilus influenz ae type b vaccine, PRP-OMP conjugate Haley Rohrbacher Other [facility] Other 2000 pneumococcal polysaccharide vaccine, 23 valent Haley Rohrbacher Other [facility] Other 2000 poliovirus vaccine, inactivated Haley Rohrbacher Other [facility] Other 2000 diphtheria, tetanus toxoids and acellular pertussis vaccine Haley Annierbacher Other [facility] Other 2000 haemophilus influenz ae type b vaccine, PRP-OMP conjugate Haley Annierbacher Other [facility] Other 2000 hepatitis B vaccine, pediatric or pediatric/adolescent dosage Haley Rohrbacher Other [facility] Other 2000 pneumococcal polysaccharide vaccine, 23 valent Haley Rohrbacher Other [facility] Other 2000 poliovirus vaccine, inactivated Haley Rohrbacher Other [facility] Other 2000 hepatitis B vaccine, pediatric or pediatric/adolescent dosage Haley Dennison Other [facility] Other Payers Date Payer Category Payer Unknown [id number] 2.1 [id number] 2023 Self-pay [id number] 1959 Unknown [id number] Medicaid [id number] 2. [id number] Unknown [id number] Unknown [id number] Social History Date Type Detail Facility Unknown if ever smoked [facility] Other Sex Assigned At Sex Assigned At Bir th [facility] Other Start: 2000 Sex Assigned At Female F [facility] Clinical Notes 05-06-2021 to 05-13-2023 Note Date & Type Note Facility 05-13-2023 Note [id number] [facility] 05-13-2023 Note [id number] [facility] 05-13-2023 Note [id number] [facility] 05-04-2023 Note Patient Education Materials Foll s: [facility] 11-28-2022 Evaluation note Encounter Date Diagnosis Assessment Notes Nov, Sore throat (ICD-10 - J02.9) Nov, Right otitis media, unspecified otitis media type (ICD-10 - H66.91) Middle ear infection: adult home care material was printed Drink plenty fluids, get plenty of rest. Take the amoxicillin as prescribed until gone. Use the fluticasone nasal spray as prescribed until your symptoms improved. Consider using nasal saline spray to your nose as well. Take Tylenol as needed for pain. Follow-up with your family physician or CLINICAL EXERCISE SPECIALIST if no improvement in 2 to 3 days Nov, Acute sinusitis, recurrence not specified, unspecified location (ICD-10 - J01.90) Sinusitis home care material was printed [facility] Other 12-08-2022 Evaluation note* Encounter Date Diagnosis Assessment Notes Treatment Notes Treatment Clinical Notes May, Abdominal cramping (ICD-10 - R10.9) Reviewed urine dipstick and test in office. Discussed with pt that her test was positive and that a second one was completed in the office. She would like a blood test completed. Blood testing ordered and pt to get completed. Discussed with pt will call with results when available. May, Nipple soreness (ICD-10 - N64.4) May, Positive test (ICD-10 - Z32.01) [facility] Other 11-28-2022 Evaluation note* Encounter Date Diagnosis Assessment Notes Treatment Notes Treatment Clinical Notes Apr, Depression with anxiety (ICD-10 - F41.8) [facility] Other 10-20-2022 Evaluation note* Encounter Date Diagnosis Assessment Notes Treatment Notes Treatment Clinical Notes Mar, Sore throat (ICD-10 - J02.9) Mar, Viral URI (ICD-10 - J06.9) Symptoms appear viral today. Bacteria infections take several days to weeks of symptoms to develop. Use saline nasal spray before prescription one and you have better results. Recommend OTC medications such as Mucinex DM, Delsym, Cepocal Lozenges Continue tylenol/ibuprofen for general discomfort. Encourage fluids. Symptoms should improve within the next 10-14 days. If no improvement of symptoms in 14 days call primary care provider to discuss antibiotic therapy, Viral upper respiratory infection: adult home care material was printed Mar, Contact with and (suspected) exposure to covid-19 (ICD-10 - Z20.822) [facility] Other 08-10-2022 Evaluation note* Encounter Date Diagnosis Assessment Notes Treatment Notes Treatment Clinical Notes Jan, Sore throat (ICD-10 - J02.9) Jan, Urinary tract infection, site not specified (ICD-10 - N39.0) Drink plenty fluids, get plenty of rest. Take Tylenol or Motrin for aches pains or fevers. Take the Macrobid and Pyridium as prescribed until gone for your urinary tract infection. Follow-up with your family physician if no improvement in 2 to 3 days., Urinary tract infection (UTI) home care material was printed Jan, Viral upper respiratory infection (ICD-10 - J06.9) Jan, Hematuria, unspecified (ICD-10 - R31.9) Jan, Dysuria (ICD-10 - R30.0) [facility] Other 07-20-2022 Evaluation note* Encounter Date Diagnosis Assessment Notes Treatment Notes Treatment Clinical Notes Dec, Diarrhea, unspecified type (ICD-10 - R19.7) Dec, Viral upper respiratory infection (ICD-10 - J06.9) Viral upper respiratory infection: adult home care material was printed Drink plenty fluids, get plenty of rest. Take Tylenol or Motrin for aches pains or fevers. Follow-up with your family physician if no improvement in 2 to 3 days [facility] Other 01-03-2022 Evaluation note* Encounter Date Diagnosis Assessment Notes Treatment Notes Treatment Clinical Notes Jun, Anxiety (ICD-10 - F41.9) Patient is not suicidal or homicidal at this time. Discussed treatment options with patient today. It was decided in collaboration with the patient to increase Buspar for management with anxiety. Medication profile and possible SE reviewed with patient today. Patient to take medication as directed and prescribed. Do not skip/miss doses and do not stop abruptly. Patient is in counseling at this time, and waiting to see the psychiatrist fo further evaluation. . Warning s/s reviewed with patient today. Patient to go immediately to the ER should patient experience any of these. Follow up in 4-6 weeks to assess symptoms and medication effectiveness. Patient verbalizes understanding and agrees to treatment plan. Jun, Low self-esteem (ICD-10 - R45.81) Jun, PCOS (polycystic ovarian syndrome) (ICD-10 - E28.2) She was recently diagnosed with PCOS. She notes that they were going to start her on control. she will call there office and follow-up if they wanted to treat her with control. Will call the office if any issues. Jun, Other acne (ICD-10 - L70.8) [facility] Other 12-16-2021 Evaluation note* Encounter Date Diagnosis Assessment Notes Treatment Notes Treatment Clinical Notes May, Shoulder height discrepancy (ICD-10 - M21.829) May, Curvature of thoracic spine (ICD-10 - M43.9) May, Pain in thoracic spine (ICD-10 - M54.6) May, Other chronic pain (ICD-10 - G89.29) May, Pelvis tilted (ICD-10 - M95.5) [facility] Other 11-29-2021 Evaluation note* Encounter Date Diagnosis Assessment Notes Treatment Notes Treatment Clinical Notes Apr, Anxiety (ICD-10 - F41.9) Patient is not suicidal or homicidal at this time. Discussed treatment options with patient today. It was decided in collaboration with the patient to increase Buspar for management with anxiety. Medication profile and possible SE reviewed with patient today. Patient to take medication as directed and prescribed. Do not skip/miss doses and do not stop abruptly. Patient is in counseling at this time, and waiting to see the psychiatrist fo further evaluation. . Warning s/s reviewed with patient today. Patient to go immediately to the ER should patient experience any of these. Follow up in 4-6 weeks to assess symptoms and medication effectiveness. Patient verbalizes understanding and agrees to treatment plan. Apr, Low self-esteem (ICD-10 - R45.81) Apr, Curvature of thoracic spine (ICD-10 - M43.9) Noted shoulder height difference and on the right and slight curvature in the spine. Will evaluate for scolosis. She did have a thoracic spine x-ray did show kyphosis that was mild, did not mention scolosis. Order provided to patient and faxed to [employer] [employer]. Will call with results Apr, Shoulder height discrepancy (ICD-10 - M21.829) [facility] Other Evaluation noteNo InformationNortCon[facility] Other Evaluation noteNo assessment information available [facility] Work Phone: History general Narrative - Reported* Type Description Date Medical History Abdominal pain, generalized Medical History Shortness of breath Medical History Abnormal loss of weight Medical History concussion 2005 Medical History Concussion Medical History Chest pain Medical History Depression Hospitalization History concussion 2005 Hospitalization History [place]-Depression TVtrip [facility] VHT Other History general [facility] - [facility] Other Summary Purpose Family History No Family History Records FoundNo Family History Records FoundNo Family History Records FoundNo Family History Records Found Advance Directives No Advanced Directives Records Found Advance Directive Response Recorded Date/ Time Advance Directives No April 2:18pm Reason for Referral Reason *Waiting for appt Please call pt to schedule Diagnosis 1 Shoulder height disc repancy (M21.829) Diagnosis 2 Curvature of thoraci c spine (M43.9) Diagnosis 3 Lumbar spondylosis ( M47.816) Referral Organization [facility] [place] Referring Provider First Name Haley Referring Provider Last Name Juma Referring Provider Specialty Nurse Pract itioner Referred Organization [facility] urosurgery Referred Provider Andrae Lema Referred Address [address],[address] Referred Provider Specialty Neurological Surgery Referral Priority Routine General Notes Yanna Arenas 08:40:58 AM >RECEIVED TODAY, SENT P2P Reason X-ray has been completed in pt's DI tab Diagnosis 1 Shoulder height disc repancy (M21.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) Diagnosis 2 Curvature of thoraci c spine (M43.9) Referral Organization [facility] [place] Referring Provider First Name Haley Referring Provider Last Name Rohrbacher Referring Provider Specialty Nurse Slim bhatia Referred Organization [facility] Referred Provider Elliot Hammond Referred Address [address] [place],[address] Referred Provider Specialty Orthopedic S urgery Referral Priority Routine General Notes Yanna Arenas 11:36:19 AM >RECEIVED TODAY, SENT P2P Additional Source Comments INFORMATION SOURCE (unrecogn ized section and content) DATE CREATED AUTHOR 11/26/2017 [facility] DATE CREATED AUTHOR AUTHOR'S ORGANIZ ATION 11/27/2017 [facility] DATE CREATED AUTHOR AUTHOR'S ORGANIZ ATION 05/15/2023 [facility] DATE CREATED AUTHOR AUTHOR'S ORGANIZ ATION 07/16/2023 [facility] REASON FOR VISIT (unrecogniz ed section and content) DISCUSS INCREASINGx-ray resu ltsOrthopedic referralmri5 week follow upreferralEXPOSURE, DIARRHEA, HEADACHE X 2 DAYSUC TOCNEXT TO SPOT 2: COVID AND STREP TEST; SYMPTOMS FOR 3 DAYS; BODY ACHES, CHILLS, SORE THROAT, STUFFY AND RUNY NOSE, FATIUGENEXT TO SPOT 2: COVID AND STREP TEST; SYMPTOMS FOR 3 DAYS; BODY ACHES, CHILLS, SORE THROAT, STUFFY AND RUNY NOSE, FATIUGEUC visitNEXT TO SPOT 2: COVID AND STREP TEST; SYMPTOMS FOR 3 DAYS; BODY ACHES, CHILLS, SORE THROAT, STUFFY AND RUNY NOSE, FATIUGEKIA OPTIMA, SORE THROAT, B/A, CHILLS, RUNNY NOSE, FATIGUEAnxiety/Depression Medsstomach crampingNo InformationLab resultsNo Informationhead cold, sore throat, cough, body aches- 33 weeks Care Teams (unrecognized sec tion and content) Team Status: Inactive Member Role Status Dates Gertrude Oneil APRN Attending Provider Active Start: July 15, 2023 End: July 15, 2023 Goals (unrecognized section and content) Goals may be documented in a n alternate section FOR RECORDS PERTAINING TO PATIENTS WHO ARE OR HAVE BEEN ENROLLED IN A CHEMICAL DEPENDENCY/SUBSTANCEABUSE PROGRAM, SOME INFORMATION MAY BE OMITTED. This clinical summary was aggregated from multiple sources. Caution should be exercised in using it in the provision of clinical care. This summary normalizes information from multiple sources, and as a consequence, information in this document may materially change the coding, format and clinical context of patient data. In addition, data may be omitted in some cases. CLINICAL DECISIONS SHOULD BE BASED ON THE PRIMARY CLINICAL RECORDS. [facility] e-channel [facility]. provides no warranty or guarantee of the accuracy or completeness of information in this document.
[2023-07-22 11:08] LABS: Age Gdln ACOG Testing Note (.); IGP, rfx Aptima HPV ASCU Note (.)
== END 2023-07-16 19:37 | disposition home or self-care (01) ==
LOC: LAB 19:36
PROVIDERS: Visit Provider Obstetrics & Gynecology
DX: Z01.419 Encounter for gynecological examination (general) (routine) without abnormal findings (principal)
CPT/HCPCS: G0145

== ENCOUNTER 2024-07-19 20:46 | Outpatient (OUT) | payer MEDICAID, SELFPAY ==
--- OUTSIDE RECORDS SUMMARY | 2024-07-19 20:49 | XMS_ITS | CCD ---
Author Organization [facility] Care Team Providers Care Correspondent Name Role Phone DEBORA PARADA Unavailable Unavailable DEBORA PARADA Unavailable Unavailable MISC, DOCTOR Unavailable Unavailable DEBORA PARADA Unavailable Unavailable KALEB CHI Unavailable Unavailable Haley Dennison Unavailable Elliot Hammond Unavailable Tristin Theodore Unavailable Rosemarie Ac Unavailable Harmony Pantoja Unavailable PENNY Oneil Attending Provider KRISTA HALLMAN Attending Unavailable Unavailable Primary Care Provider UnavailGertrude Gomez Unavailable NON STAFF Primary Care Unavailable Gertrude Oneil Attending Unavailable Gertrude Oneil Admitting Unavailable Luke Rivera Attending Unavailab Luke Briseno Admitting Unavailab Bobo Lockwood Attending Unavaila Haley Ferreira Primary Care Unavailable Stefania Becerra MD Unavailable Medications Current Medications Medication Drug Class(es) Dates [...] for 30 day(s) Feb, Active Start: 02-12-2021 busPIRone hydrochloride 5 mg oral tablet (20 sources) Start: 04-21-2024 take 1 tablet by mouth in the morning busPIRone (Buspar) 5 MG tablet Indications: depression (CMS/HCC) , Anxiety, generalized (CMS/HCC) TAKE 1 TABLET BY MOUTH IN THE MORNING 30 tablet 3 04/21/2024 Active Start: 04-02-2023 End: 04-01-2024 take 1 tablet by mouth in the morning busPIRone (Buspar) 5 MG tablet Indications: depression (CMS/HCC) , Anxiety, generalized (CMS/HCC) Take 1 tablet (5 mg) by mouth in the morning. 30 tablet 11 04/02/2023 04/01/2024 Active take 2 tablets by mo [facility] three times daily busPIRone HCl 10 MG 2 tablet Orally Three times per day for 30 day(s) Not-Taking take 1 tablet by cordelia three times daily busPIRone HCl 10 MG 1 tablet Orally Three times per day for 30 day(s) Active FLUoxetine 40 mg oral capsule (19 sources) [...] a day for 14 day(s) Nov, Active magnesium oxide 400 mg oral tablet (5 sources) Start: 07-15-2023 MAGnesium-Oxide 400 (240 Mg) MG tablet 07/15/2023 Active nitrofurantoin, macrocrystals 25 mg / nitrofurantoin, monohydrate 75 mg oral capsule (4 sources) Nitrofuran Antibacterial Start: 01-15-2022 take 1 capsule by mouth every twelve hours Macrobid 100 MG 1 cap(s) Orally 2 times a day for 5 day(s) Jan, Active omeprazole 20 mg delayed release oral capsule (10 sources) Proton Pump Inhibitor Start: 05-31-2023 take 1 capsule by mouth once daily before mealtime omeprazole (PriLOSEC) [address] capsule TAKE 1 CAPSULE BY MOUTH ONCE DAILY IN THE MORNING BEFORE MEAL(S) DO NOT CRUSH, CHEW, OR SPLIT 05/31/2023 Active Start: 03-05-2023 take 1 tablet by cordelia th before mealtime omeprazole OTC (PriLOSEC OTC) 20 MG EC tablet Indications: Heartburn Take 1 tablet (20 mg) by mouth in the morning. Take before meals. Do not crush, chew, or split.. 30 tablet 3 03/05/2023 Active take 1 capsule by mo uth once daily Omeprazole 10 MG 1 capsule 30 minutes before morning meal Orally Once a day Active phenazopyridine hydrochloride 200 mg oral tablet (4 sources) Start: 01-15-2022 take 1 tablet by mouth every eight hours Pyridium 200 MG 1 tablet after meals Orally Three times a day for 2 day(s) Jan, Active 24 hr venlafaxine 37.5 mg extended release oral capsule (7 sources) Serotonin and Norepinephrine Reuptake Inhibitor Start: 06-09-2024 take 1 capsule by mouth every twenty-four hours in the morning venlafaxine XR (Effexor XR) 37.5 MG 24 hr capsule Indications: depression (CMS/HCC) Take 1 capsule by mouth in the morning 30 capsule 3 06/09/2024 Active Start: 07-15-2023 take 1 capsule by mo uth every twenty-four hours Effexor XR 37.5 MG 1 Capsule Once a day Jul, Active Start: 05-11-2023 End: 05-10-2024 take 1 capsule by mouth every twenty-four hours in the morning venlafaxine XR (Effexor XR) 37.5 MG 24 hr capsule Indications: depression (CMS/HCC) Take 1 capsule (37.5 mg) by mouth in the morning. 30 capsule 11 05/11/2023 05/10/2024 Active Completed/Discontinued Medications Medication Drug Class(es) Dates Sig (Normalized) Sig (Original) benzocaine 15 mg / menthol 2.6 mg oral lozenge (7 sources) Standardized Chemical Allergen Start: 03-27-2022 Cepacol Extra Strength 15-2.6 MG as directed Mouth/Throat every 4 hours for 5 day(s) Mar, Not-Taking dextromethorphan hydrobromide 1.5 mg/ml / pyrilamine maleate 1.5 mg/ml oral solution (7 sources) Uncompetitive R-mkcotj-H-aspartat e Receptor Antagonist, Sigma-1 Agonist Start: 03-27-2022 Bradshaw DM 7.5-7.5 MG/5ML 10 ml Orally every [...] 10-01-2017 Episodic Genitourinary symptoms and ill-defined conditions (18 sources) Dysuria; Translations: [Dysuria] Onset: 01-15-2022 Resolved: 01-15-2022 Episodic Headache; including migraine (6 sources) Migraine with aura; Translations: [Migraine with aura, not intractable, without status migrainosus] Onset: 05-22-2022 11-10-2022 Chronic Malaise and fatigue (20 sources) Fatigue; Translations: [Chronic fatigue, unspecified] Chronic Menstrual disorders (20 sources) Menorrhagia; Translations: [Excessive and frequent menstruation with regular cycle] Chronic Miscellaneous mental health disorders (20 sources) Distorted body image; 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 Mood disorders (20 sources) Recurrent major depressive episodes, mild ; Translations: [Major depressive disorder, recurrent, mild] Onset: 11-10-2022 11-10-2022 Chronic Nausea and vomiting (3 sources) Nausea [...] Episodic Other bone disease and musculoskeletal deformities (15 sources) Idiopathic scoliosis of thoracic spine; Translations: [Other idiopathic scoliosis, thoracic region] Chronic Other endocrine disorders (20 sources) Polycystic ovary syndrome; Translations: [Polycystic ovarian syndrome] Onset: 04-03-2021 11-10-2022 Chronic Other endocrine disorders (1 source) Polycystic ovarian syndrome Onset: 06-10-2021 Resolved: 06-10-2021 Chronic Other nervous system disorders (18 sources) Chronic pain; Translations: [Other chronic pain] Chronic Other nervous system disorders (1 source) Other chronic pain Onset: 05-23-2021 Resolved: 05-23-2021 Chronic Other upper respiratory infections (20 sources) Sore [...] dependence, cigarettes, with other nicotine-induced disorders] Chronic Unclassified (1 source) Encounter for general adult medical examination without abnormal findings; Translations: [Encounter for general adult medical examination without abnormal findings] Onset: 07-15-2023 Past or Other Problems Problem Classification Problem Date Documented Da te Episodic/Chronic Other acquired deformities (2 sources) Deforming dorsopathy, unspecified Onset: 05-06-2021 Resolved: 05-23-2021 Episodic Other acquired deformities (2 sources) Other specified acquired deformities of unspecified upper arm Onset: 05-06-2021 Resolved: 05-23-2021 Episodic Other acquired deformities (1 source) Acquired deformity of pelvis Onset: 05-23-2021 Resolved: 05-23-2021 Episodic Other complications of ; puerperium affecting management of mother (6 sources) condition affecting obstetrical care of mother; Translations: [Maternal care for (suspected) abnormality and damage, unspecified, not applicable or unspecified] Onset: 08-27-2022 11-10-2022 Episodic Other complications of (6 sources) Diseases of the digestive system complicating , unspecified trimester; Translations: [Other current conditions classifiable elsewhere of mother, unspecified as to episode of care or not applicable] Onset: 05-22-2022 11-10-2022 Episodic Other gastrointestinal disorders (1 source) Diarrhea, unspecified Onset: 12-25-2021 Resolved: 12-25-2021 Episodic Other and delivery including normal (7 sources) Encounter for test, result positive; Translations: [Para 1] Onset: 05-22-2022 Episodic Other skin disorders (1 source) Other [...] Test Name Value Interpretation Reference Range Facility Coding Summaryon 06-17-2024 Coding Summary HTMLBase 64 KwvqjjkqRLf5lXz+PGhlYW Q+HP6VSBVrU34ijUZnmS9s S3NBOCnYQoapTLQTEBdLQi XscyBrWA2qaQTaFFOh IC8+JU2xNBCcDtyciEEcc8 N7nOX8Q45pmj1uPFeqvSU7 YIZyEjPlcmkll9ayxNr3DT cuNmluOyBt OKEleA54JXN5yQ27Cy92oK JfaYDfp1qrtXu3FbVnEHBp ROY2kUahXUhph9GtUYUiR6 9gdWTdh7B6 OSSoxUivgJXqPaYrmMQ5jK 7sXIrxzliom3puduleLoj3 rh56uACbt9A1cVY5P3Tubd V9EMNflIFs UiqttVSOyR3seehef9fybt gdMlGuNTSuXNy7VGi1FLNx cZvkNbRwIZ40EJK7UFWirz DfS9SePSYi kZymDeD5e2G0Vk5HQ1WJNl elW3VNTRAKADdkxUR+PC90 ut79Y7CnVfcyRnk2CDNsWD Z2pCF8xU5p JKOtHTmij5V9aYX7F7Vwvn Hgrd5xd8qiAMOrQKifK38l yOMgu4P6GMVdgOY2JGAvuP ggSzIcwE63 Oyc+TYBowAyxe5YhAcgtx0 udq5hhoIo7YljdAGEgjoCh jGxtTBA3n3XlDx2gLXObqM Z8uOC1oO6k MbFeNbE2KHjiV155WmFcwA RdDxqzG85qQ9JamUI+PHRy Boy7PRUmdYniOY9cW9NtFS RpbmctbGVm uPbhJY5tPSIwwkkxPFDhzH 3lZZYoV4b3ZhPoCtZ4QKdj F5VeEXCntrpuLv08vK7oUv BpEhG1SMvz F7RbigA0EBJpxKBtHLsuMN Q2T37bk9I4HAZaDPJfCSY7 pYI5pR6syYixsnyggDZdaQ sgdmVydGlj HFrbZVwhL394OBPbqJyxQp NvZGluZyBEYXRlOiAgMDEv MTAvMjAyNTwvdGQ+PHRkIH E2sUhwYEWf hBCeFBgjAe2xoQfhpZksKY 7mPPUaiahpFVRzdM3lIXLh bNSigRgaNK4cFWAgfzybe6 11OtOsXZC2 KMWxcHCnO5IotG2rJsKkUN CaNADbR7KqyHQeNWjxG885 KEudOzS3DPBfzrLzM8FiOI FsaWduOiB0 z7O9Cn4Uv6IzdfwaS9UxmF GyKdZzQthaFMa7V5DgAlon dHI+LI33DSTnBD81QMu0AU Q4vBuoQPyb GABkE7EtaJ1iFwZyOADsED RkOyc+PHRhYmxlIHdpZHRo KOhtVXVvXpVoyWkxDT2qXj 9yZGVyLWNv dNtrrICmCwGaz6avWLRoIO xdND4psIdeS3MyzGU0RYIe x4r5Fr80S72tJ3XrfIG+PG XttVZ8xKF1 hO6tTkBsFgS3IYzsJ509Mp YqxUVgEmxko9quf2zjfNg2 VpS1MSZkqlRvrDllVSU2t6 HwUd53Z38y IHdpZHRoPSIxNSUiIHZhbG ywzu6wvR6tXf5+PGNvbCB3 tCV5qH9yDpZnJjN8TVqrD6 49InRvcCIv Punvq5sfw5pkmTs1NpMqAT IiawFsrZdpWGD2e2MoUt11 K7KudXpwy7UjYch0nd25qF Dkq8C0bBP4 K9OvTWFjscjktKBxoDncHC 8pXGQdrilpHAOmnT9vPNWo F5a2RzCrXsW1MIvzV7Wcep R9NFDmxBPo PFNykOBDpE9ninznq4eryt gxKjZlCZSuSQs9QPo9BXXe eRsbThOvKOI9QkQ6HBD5fM MfoS6wzNez elpaiY4kCzy+XQF4lEPzlC TNXF9pDvstiRN+PHRkIHN0 jHqaUUvfJYIbpZ9uRTGfZ8 k2XpMsIcW5 GDelR6WuzoB4IWKshYZyAB RlgIFRrN0toqcjq8cnpwwi JfTfWVVuGKg4HCy7PORaxF duOiBsZWZ0 IoF0MPV7oJBzzS0jrZnurs jzkD6lEdh+QmlydGggRGF0 WQv4I8QkDnu6JNVydSloZP 0ncGFkZGlu Sf8hfOzljZfaTT7pEXNxbo znj699DuLcj2cvVVRvrAGe IIlaSTY6I73oz5B5GBOyGZ LsHHV5dUG8 eK1ytVyjqailpKJroXdbug KcrQlsVVezUDdoN048XVPt kBuwDmKgHOe0N6PdZtk2TG CprGcrSD4x mSMuXNcrGb8yfAqtcVtgSS 6lMWSmsxjul330FkLgj9lo ZMSsfCQjUAiqHTS4M91qp0 N1KURaHDFv XDC4hMY7fB2svEzspilbzB VmdDsgdmVydGljYWwtYWxp C145ZDGjyKyuNzBfmEf6R6 CcTio4DWKl rPfuSH4tgBJzBUnnHv1ayU ahfXwqPZ4lCPQuqalfj099 FcFmc1crHGMgfZVlDHeoQS M9P81vg9Y1 AVPxKPYxHAZ4xMP1nY4nqW lnbjogbGVmdDsgdmVydGlj HKzdTFbxO276PSXzzHemZc BhdGllbnQg FCkxRLb5W7LbSzcfgUZ+PC 66PLIhUE87nUVnhFGeo1zj cUa3SlIrLDUwTHN3qEhvYY rjp5NmFZPw H81iwEBmg3H4UOBqoYytbW WeLdJljCI6dE6dZNeanpzq y9lcvsccGupaw8ayyo92aW 31O38vGUzy ZHRoPSIzMCUiIHZhbGlnbj 7nnS1lNe1+UGPxcAQ0kFX0 oL9bJYGzErD1PWbhQ306Fq RvcCIvPjxj z2rsz5tbfGx3LfI4IKPowt QgaVyxLRP0w6DnYi92C55f IHdpZHRoPSIyMCUiIHZhbG trbs8ntA6y Ii8+WNKerHD9bFJ8kV7vQb RhAzG1BHadP923CaBgcVGh SuycE36gA5QwuGQ+PHRyPj k2AWNpjEay OY7spTGhWPqnCx8fYIO4Ii ThQzZaPBvgR3FeONEolxst einyiIA4ORIaRZXwxP27Rm 9udDogMTBw jZBVwC4axepet3mmtoatHh OyQPNmCYz2QOl9LGOfoVzp SuFcKZA4NkQ4GBW2hMOlfU 1hbGlnbjog uL0oM8RyKDMgdrhhIl39lU 6gXzGtApH7TSwfPiy+UlVJ DcafJM0WLjCEUD7DQhkIDD 21JP41nIYj z0R5eIX8A2TlRNLyopmbav armII3WKMcCPHvzL27sALi WJhrXs1oy9V0q544FOAaVZ WeaE54Ej9b jDnbSHBpmUJAiO0slikhv1 qahmfrDcTxBQRhLLa0SDz2 FLFeqAqqPfAkWUH1WaP2KK R9tRCojD4z xKxwttyglS0rArl+MDMvMD YvMjAwMTwvdGQ+PHRkIHN0 oFcvVUmkFAPpnD8sJUVxS1 e4XsKkCtF7 HWejK3JnVMRwgvuiTh64aR 3iWcMsBjD7OMjjT1PiwoS6 FXLtgYYlKJctFKV8X82yg0 U0TKAjHAUk QCS8yNY1bM5alKwdbbohjK VmdDsgdmVydGljYWwtYWxp J309MOVlkWvrOaYwYZwcUR LyLO82EV68 oGLfe4R8dEY3B0DrFEYapp huqmqpaVE9DEAzELBfgM05 sALgEQctNy9rh8O3j181RL UdHHIejO58 Tr6rtXbhNXDbpONFsQ5gdu tnd5wjbbheLoWrPKNfCTa5 ULk7AJWteKmeZqGtOOI5Jv Q9ALI0tYXr yC9qfWgrxmrvnO2rJlo+Rk IULAdCMI31DV36rAXfe1J4 wJH7Q3PkZPXprqexktspqR C9QEKcQCVb eV41oSVoWYwsEu7ee9N8f3 67GIIeSVMqkD74Su9joBbf UYKszUJOiI4qdfhoo1ilek ogIzAwMDAw BFj2CRc5RRTwmPmgKmKiIS S3VjE9OOM0bRSlmE4zpXsc icdhyR6qZwo+G3X7V4TjCg wvdHI+PC90 TOJdPT06aULtsAKyi0fbnA l4OsGwCBFkIMK6bAcrQAnb d6CsKQKnA03ekKGnr9E5MU NvbGxhcHNl OaMblFS4tU9oTEomknrnj2 srgocpDtfbc5gkqk54pN55 R47yXIueORTuPRKqPCFfPQ NexGmyvj7a uC3zEy5+KBMgrMV1gLF5lE 9zSmAoJpV8DBleL824KjQk nSCcDralr1tdv0zbuBh4Mp IwJSIgdmFs aZggSRN2m0FxQl95I84oTJ dpZHRoPSIyMCUiIHZhbGln dq0ekL0sQf4+OB5lo2miad 18bE62xIZ+ UTIxZIL0jHoqAEyaMQKxlZ 4lCQzuFoR7TOWfUcYvlV79 hNLmIAunWi6sgTvznPkyWQ 4wNTBpbjtm v838XyIsa8ukTOXyuJHaMU ovFRS2M89xi9K0JFPqQSBk CEY7eCA7kP9ciDixbwktfS VmdDsgdmVy eVwgXBhcCEebV367FFPwgK opPhJytPSsW4wytxJBZH4s OjwvdGQ+QZQgWRO6sEmsDZ bhHILhiR5k UHYjQ7q4DfKwGhS7LTxvM9 JlqbL9GOBbbHHlXDHnmMPS lK0lttxqs2vnpotsGgApSW DqBPo7SYn2 WIIgaWwwLjGfZHU6GmX4DW Q0zJRzoO8mfTnkelopuU7r Oyc+RklOOjwvdGQ+PHRkIH D5lGbtOIls AYNdxW2tOUOhF1e7NjBoBz X0FKibJ5JfluH0ETLuwMHo DAVcmXUFrZ4jgarza8ebsy ogIzAwMDAw HJw3JIz5OQVbwHbcOjUfRH T5MmG3LJC1tRScdG9qeYot bahlnC9wLxp+TVJOOjwvdG Q+PHRkIHN0 fJtkVHalRYRkjN8mRDEpA0 x9JjGgQcM4RBjoW1JhweQ8 DNBjyEJnUFNfjLOCiG3cvs ben1tzbdci MfPhAGOkYYf1TTn3BUHmtM icWkRyVBS1VlS1JYC7yMHd dV1wmHvoykhzjK0cQyl+UG S6QJH5LV01 ZD16N8QrTwwdeVWjfLZ+PH RhYmxlIHdpZHRoPScxMDAl OgPucOnuQD4mVr1rHVFqWW NvbGxhcHNl OiB (more content not included)... Normal [facility] ED Clinical Summaryon 2023 ED Clinical Summary [facility] ? Urgent Care [address] [place], [place] [id number] Clinical Summary PERSON INFORMATION Name: SARAN SIMPSON Age: 23 Years Sex: FEMALE : 2000 MRN: Acct#: Visit Reason: UC - Headache; HEADACHE Arrival: 06/02/2024 10:14:37 Discharge: 06/02/2024 11:04:00 LOS: 000 00:50 Check In: 06/02/2024 10:14:37 Checkout: 06/02/2024 11:04:00 Address: [address] [place] [id number] PCP: Haley Dennison CNP PROVIDER INFORMATION Provider Role Assigned Unassigned Rosemarie Parada ED Nurse 06/02/2024 10:28:24 Bobo Lwoe ED PA 06/02/2024 10:30:10 VITALS INFORMATION Vital Sign Triage Latest Temperature Tympanic Temperature Temporal Artery Pulse Rate O2 Sat Respiratory Rate Blood Pressure /58 mmHg /58 mmHg MEDICAL INFORMATION Medications Given: Medication Dose Route ondansetron 4 mg Oral ketorolac 30 mg Intramuscular Allergy Information: No known allergies PHYSICIAN DOCUMENTATION DISCHARGE INFORMATION: Discharge Disposition: Home Discharge Location: Home PATIENT EDUCATION INFORMATION Instructions: Migraine Headache Follow-Up: With: Address: When: Haley Dennison CNP [address] [place], [place] [id number] Within 3 to 5 days Comments: Diagnosis is migraine headache. We provide you with Zofran which helps treat nausea, and Toradol which is an anti-inflammatory medication such as ibuprofen Motrin or Aleve. Do not take any NSAIDs for 6 hours. You may take Tylenol. After 6 hours you may take Tylenol or ibuprofen together for maximal pain relief. Follow-up with your own primary care provider in the next 3 to 5 days for reevaluation. Return for worsening symptoms or concerns. If develop the worst headache of your life, worsening headache pain nausea or vomiting follow-up in the emergency department. DIAGNOSIS: 1:Migraine headache Patient Understands: Yes - Patient/family/caregiv er verbalizes understanding of instructions given Comment: Normal [facility] ED Patient Summaryon 024 ED Patient Summary [facility] ? Urgent Care [address] [place], [place] [id number] PATIENT DISCHARGE INSTRUCTIONS Patient Information Name: SARAN SIMPSON Age: 23 Years Date of : 2000 Reason For Visit: UC - Headache; HEADACHE Arrival Time: 06/02/2024 10:14:37 Primary Care Physician: Haley Dennison CNP Attending Physician: Bobo Lowe Comment: Patient Education With: Address: When: Halye Dennison CNP [address] [place] [address] Within 3 to 5 days Comments: Diagnosis is migraine headache. We provide you with Zofran which helps treat nausea, and Toradol which is an anti-inflammatory medication such as ibuprofen Motrin or Aleve. Do not take any NSAIDs for 6 hours. You may take Tylenol. After 6 hours you may take Tylenol or ibuprofen together for maximal pain relief. Follow-up with your own primary care provider in the next 3 to 5 days for reevaluation. Return for worsening symptoms or concerns. If develop the worst headache of your life, worsening headache pain nausea or vomiting follow-up in the emergency department. Migraine Headache A migraine headache is an intense pulsing or throbbing pain on one or both sides of the head. Migraine headaches may also cause other symptoms, such as nausea, vomiting, and sensitivity to light and noise. A migraine headache can last from 4 hours to 3 days. Talk with your health care provider about what things may bring on (trigger) your migraine headaches. What are the causes? The exact cause is not known. However, a migraine may be caused when nerves in the brain get irritated and release chemicals that cause blood vessels to become inflamed. This inflammation causes pain. Migraines may be triggered or caused by: ? Smoking. ? Medicines, such as: ? Nitroglycerin, which is used to treat chest pain. ? control pills. ? Estrogen. ? Certain blood pressure medicines. ? Foods or drinks that contain nitrates, glutamate, aspartame, MSG, or tyramine. ? Certain foods or drinks, such as aged cheeses, chocolate, alcohol, or caffeine. ? Doing physical activity that is very hard. Other triggers may include: ? Menstruation. ? . ? Hunger. ? Stress. ? Getting too much or too little sleep. ? Weather changes. ? Tiredness (fatigue). What increases the risk? The following factors may make you more likely to have migraine headaches: ? Being between the ages of 25-55 years old. ? Being female. ? Having a family history of migraine headaches. ? Being . ? Having a mental health condition, such as depression or anxiety. ? Being obese. What are the signs or symptoms? The main symptom of this condition is pulsing or throbbing pain. This pain may: ? Happen in any area of the head, such as on one or both sides. ? Make it hard to do daily activities. ? Get worse with physical activity. ? Get worse around bright lights, loud noises, or smells. Other symptoms may include: ? Nausea. ? Vomiting. ? Dizziness. Before a migraine headache starts, you may get warning signs (an aura). An aura may include: ? Seeing flashing lights or having blind spots. ? Seeing bright spots, halos, or zigzag lines. ? Having tunnel vision or blurred vision. ? Having numbness or a tingling feeling. ? Having trouble talking. ? Having muscle weakness. After a migraine ends, you may have symptoms. These may include: ? Feeling tired. ? Trouble concentrating. How is this diagnosed? A migraine headache can be diagnosed based on: ? Your symptoms. ? A physical exam. ? Tests, such as: ? A CT scan or an MRI of the head. These tests can help rule out other causes of headaches. ? Taking fluid from the spine (lumbar puncture) to examine it (cerebrospinal fluid analysis, or CSF analysis). How is this treated? This condition may be treated with medicines that: ? Relieve pain and nausea. ? Prevent migraines. Treatment may also include: ? Acupuncture. ? Lifestyle changes like avoiding foods that trigger migraine headaches. ? Learning ways to control your body (biofeedback). ? Talk therapy to help you know and deal with negative thoughts (cognitive behavioral therapy). Follow these instructions at home: Medicines ? Take dtgm-ycz-uegckqv and prescription medicines only as told by your provider. ? Ask your provider if the medicine prescribed to you: ? Requires you to avoid driving or using machinery. ? Can cause constipation. You may need to take these actions to prevent or treat constipation: ? Drink enough fluid to keep your pee (urine) pale yellow. ? Take ddgt-vjf-kzeynmy or prescription medicines. ? Eat foods that are high in fiber, such as beans, whole grains, and fresh fruits and vegetables. ? Limit foods that are high in fat and processed sugars, such as fried or sweet foods. Lifestyle (more content not included)... Normal [facility] [place] 024 Urgent Care Record [facility] ? Urgent Care [address] [id number] PATIENT DISCHARGE INSTRUCTIONS Patient Information Name: SARAN SIMPSON Age: 23 Years Date of : 2000 [facility]: [id number] Reason For Visit: UC - Headache; HEADACHE Arrival Time: 06/02/2024 10:14:37 Primary Care Physician: Haley Dennison CNP Attending Physician: Bobo Lowe Comment: Visit Diagnosis: Diagnoses This Visit Migraine headache (G43.909) UC - Headache ([id number]) If you received any narcotics, sedation, or [...] business decisions or sign any legal documents With: Address: When: Haley Dennison CNP [address] [place] [address] Within 3 to 5 days Comments: Diagnosis is migraine headache. We provide you with Zofran which helps treat nausea, and Toradol which is an anti-inflammatory medication such as ibuprofen Motrin or Aleve. Do not take any NSAIDs for 6 hours. You may take Tylenol. After 6 hours you may take Tylenol or ibuprofen together for maximal pain relief. Follow-up with your own primary care provider in the next 3 to 5 days for reevaluation. Return for worsening symptoms or concerns. If develop the worst headache of your life, worsening headache pain nausea or vomiting follow-up in the emergency department. Medication Information: The exam and treatment you received today in the [facility] were for an urgent problem and are not intended as complete care. It is important for you to follow up with a doctor, nurse practitioner, or physician?s assistant paralegal for ongoing care. If your symptoms become [...] so we can reach you if necessary. [facility] has provided you with a complete list of medications post discharge. Please inform your adzing and boring machine helper/provider of your visit and for further instruction on these medications. Any specific questions regarding your chronic medications and dosages should be discussed with your primary care physician(s) and/or pharmacist. Additional medications on your home medication list not specifically addressed. Please contact the ordering physician if you have questions about these medications. busPIRone (busPIRone 5 mg oral tablet) 1 tab(s) Oral (given by mouth) every day. venlafaxine (venlafaxine 37.5 mg oral capsule, extended release) 1 cap(s) Oral (given by mouth) every day. Visit Information Allergies: Substance Reaction Symptoms Type Comments No known allergies Drug Vital Signs: Vitals and Measurements this Visit (last charted value for your 06/02/2024 visit) Vital Signs This Visit Temperature Temporal: 36.1 DegC Peripheral Pulse Rate: 72 bpm Respiratory Rate: 16 br/min Systolic Blood Pressure: 100 mmHg Diastolic Blood Pressure: 58 mmHg Blood Pressure Method: Manual Measurements This Visit Height/Length Measured: 152 cm Weight Measured: 49.9 kg Weight Dosin.900 kg Body Mass Index: 21.6 kg/m2 BSA Measured: 1.45 m2 Problems List: Problem Onset Comments None Patient Education Migraine Headache A migraine headache is an intense pulsing or throbbing pain on one or both sides of the head. Migraine headaches may also cause other symptoms, such as nausea, vomiting, and sensitivity to light and noise. A migraine headache can last from 4 hours to 3 days. Talk with your health care provider about what things may bring on (trigger) your migraine headaches. What are the causes? The exact cause is not known. However, a migraine may be caused when nerves in the brain get irritated and release chemicals that cause blood vessels to become inflamed. This inflammation causes pain. Migraines may be triggered or caused by: ? Smoking. ? Medicines, such as: ? Nitroglycerin, which is used to treat chest pain. ? control pills. ? Estrogen. ? Certain blood press (more content not included)... Normal [facility] IGP,APTIMA HPV,AGE GDLNon AGE GDLN ACOG TESTING Note . [facility] Comment on above: TESTS RESULT FLAG [facility] REF RANGE LAB Clinician Provided Cytology Information Source.............Cervix;Endocervix No. of containers..01 ThinPrep Vial Age Algo ACOG Faviola... FLAG LEGEND: L-Low Normal,H-High Normal,LL-Alert Low,HH-Alert High <-Panic Low,>-Panic High,A-Abnormal,AA-Critical Abnormal Performed at: 01 [address] [id number] Aisha Florez MD, IGP, RFX APTIMA HPV ASCU Note . [facility] Comment on above: TESTS RESULT FLAG [facility] REF RANGE LAB DIAGNOSIS: 02 NEGATIVE FOR INTRAEPITHELIAL LESION OR MALIGNANCY. Specimen adequacy: 02 Satisfactory for evaluation. No endocervical component is identified. Performed by: 02 Bernabe Valear, Enterprise Account Executive (ASCP) . 02 Note: Note 02 The Pap smear is a screening test designed to aid in the detection of premalignant and malignant conditions of the uterine cervix. It is not a diagnostic procedure and should not be used as the sole means of detecting cervical cancer. Both false-positive and false-negative reports do occur. Test Methodology: Note 02 This liquid based ThinPrep(R) pap test was screened with the use of an image guided system. . 02 The HPV DNA reflex criteria were not met with this specimen result therefore, no HPV testing was performed. FLAG LEGEND: L-Low Normal,H-High Normal,LL-Alert Low,HH-Alert High <-Panic Low,>-Panic High,A-Abnormal,AA-Critical Abnormal Performed at: [address] [id number] Aisha Florez MD, Performed at: = - [address] [id number] Social Media Executive: Aisha Florez MD, Phone: [phone] Performed at: [facility] [address] [id number] Social Media Executive: Aisha Florez MD, Phone: [phone] BRUSH-SPATULA CERVIX ENDOCERVIX [facility] Alanine aminotransferase [En zymatic activity/volume] in Serum or PlasmaOrdered By: Gertrude Oneil on 07-15-2023 ALT [Catalytic activity/Vol] 13 U/L Normal 7-52 [facility] Comment on above: Performed By: #### C MP, CBC, T3T, TSH3, B12, [id number] #### [facility] [address] [place] [address] #### INSULIN, TESTF #### [facility] , Albumin [Mass/volume] in Ser um or Plasma by Bromocresol green (BCG) dye binding methoOrdered By: Gertrude Oneil on 07-15-2023 Albumin BCG dye [Mass/Vol] 4.9 g/dL 3.5-5.7 [facility] Alkaline phosphatase [Enzyma tic activity/volume] in Serum or PlasmaOrdered By: Gertrude Oneil on 07-15-2023 ALP [Catalytic activity/Vol] 76 U/L Normal 34-104 [facility] Comment on above: Performed By: #### C MP, CBC, T3T, TSH3, B12, [id number] #### [address] #### INSULIN, TESTF #### [facility] , Aspartate aminotransferase [ Enzymatic activity/volume] in Serum or PlasmaOrdered By: Gertrude Oneil on 07-15-2023 AST [Catalytic activity/Vol] 14 U/L Normal 13-39 [facility] Comment on above: Performed By: #### C MP, CBC, T3T, TSH3, B12, [id number] #### [facility] [address] [place] [address] [place] #### INSULIN, TESTF #### [facility] , Automated basophil %Ordered By: Gertrude Oneil on 07-15-2023 Basophils/100 WBC (Bld) 0.7 % Normal . [facility] Comment on above: Performed By: #### C MP, CBC, T3T, TSH3, B12, [id number] #### [facility] [address] [place] [address] [place] #### INSULIN, TESTF #### [facility] , Automated basophil countOrde red By: Gertrude Oneil on 07-15-2023 Basophils (Bld) [#/Vol] 0.0 10*3/uL Normal 0.0-0.2 [facility] Comment on above: Result Comment: PERF ORMED BY: [place] [address] PATHOLOGIST SMOKING PIPES CLEANER TIERA RAMIREZ M.D. Performed By: #### C MP, CBC, T3T, TSH3, B12, [id number] #### [address] #### INSULIN, TESTF #### [facility] , Automated blood monocyte cou ntOrdered By: Gertrude Oneil on 07-15-2023 Monocytes (Bld) [#/Vol] 0.4 10*3/uL Normal 0.0-0.8 [facility] Comment on above: Performed By: #### C MP, CBC, T3T, TSH3, B12, [id number] #### [address] #### INSULIN, TESTF #### [facility] , Automated eosinophil %Ordere d By: Gertrude Oneil on 07-15-2023 Eosinophils/100 WBC (Bld) 2.8 % Normal . [facility] Comment on above: Performed By: #### C MP, CBC, T3T, TSH3, B12, [id number] #### [address] #### INSULIN, TESTF #### [facility] , Automated eosinophil countOr dered By: Gertrude Oneil on 07-15-2023 Eosinophils (Bld) [#/Vol] 0.1 10*3/uL Normal 0.0-0.45 [facility] Comment on above: Performed By: #### C MP, CBC, T3T, TSH3, B12, [id number] #### [place] [address] [place] #### INSULIN, TESTF #### [facility] , Automated monocyte %Ordered By: Gertrude Oneil on 07-15-2023 Monocytes/100 WBC (Bld) 6.7 % Normal . [facility] Comment on above: Performed By: #### C MP, CBC, T3T, TSH3, B12, [id number] #### [place] [address] [place] #### INSULIN, TESTF #### [facility] , Automated neutrophil %Ordere d By: Gertrude Oneil on 07-15-2023 Neutrophils/100 WBC (Bld) 45.8 % Normal . [facility] Comment on above: Performed By: #### C MP, CBC, T3T, TSH3, B12, [id number] #### [facility] [address] [place] [address] [place] #### INSULIN, TESTF #### [facility] , Bilirubin.total [Mass/volume ] in Serum or PlasmaOrdered By: Gertrude Oneil on 07-15-2023 Bilirubin [Mass/Vol] 0.3 mg/dL Normal 0.3-1.0 [facility] Comment on above: Performed By: #### C MP, CBC, T3T, TSH3, B12, [id number] #### [place] [address] [place] #### INSULIN, TESTF #### [facility] , CBC W Auto Differential pane l (Bld)on 07-15-2023 Basophils (Bld) [#/Vol] 0.0 10*3/uL 0.0 - 0.2 10*3/uL [facility] Basophils/100 WBC Manual cnt (Syn fld) 0.7 % . [facility] Eosinophils (Bld) [#/Vol] 0.1 10*3/uL 0.0 - 0.45 10*3/uL [facility] Eosinophils/100 WBC Manual cnt (Syn fld) 2.8 % . [facility] Erythrocyte distribution width (RBC) [Ratio] 13.4 % 11.9 - 15.3 % [facility] Hematocrit (Bld) [Volume fraction] 37.4 % 34.0 - 46.4 % [facility] Hemoglobin (Bld) [Mass/Vol] 12.4 g/dL 11.8 - 15.4 g/dL [facility] Lymphocytes (Bld) [#/Vol] 2.4 10*3/uL 1.00 - 4.8 10*3/uL [facility] Lymphocytes/100 WBC Manual cnt (Syn fld) 44.0 % . [facility] MCH (RBC) [Entitic mass] 29.0 pg 24.7 - 34.3 pg [facility] MCHC (RBC) [Mass/Vol] 33.3 g/dL 32.0 - 35.0 g/dL [facility] MCV (RBC) [Entitic vol] 87.1 fL 80 - 100 fL [facility] Monocytes (Bld) [#/Vol] 0.4 10*3/uL 0.0 - 0.8 10*3/uL [facility] Monocytes+Macrophages/ 100 WBC Manual cnt (Syn fld) 6.7 % . [facility] Neutrophils (Bld) [#/Vol] 2.5 10*3/uL 1.8 - 7.7 10*3/uL [facility] Neutrophils/100 WBC Manual cnt (Syn fld) 45.8 % . [facility] NRBC 0.1 /100{WBC} 0 - 0.5 /100{WBC} [facility] Platelet mean volume (Bld) [Entitic vol] 9.9 fL 6.3 - 10.7 fL [facility] Platelets (Bld) [#/Vol] 263 10*3/uL 150 - 450 10*3/uL [facility] RBC LM.HPF (Urine sed) [#/Area] 4.29 /[HPF] 3.60 - 5.00 [facility] WBC (Bld) [#/Vol] 5.4 10*3/uL 3.8 - 11.6 10*3/uL [facility] WBC LM.HPF (Urine sed) [#/Area] 5.4 10*3/uL 3.8 - 11.6 10*3/uL [facility] Calcium [Mass/volume] in Ser um or PlasmaOrdered By: Gertrude Oneil on 07-15-2023 Calcium [Mass/Vol] 10.1 mg/dL Normal 8.6-10.3 [facility] Comment on above: Performed By: #### C MP, CBC, T3T, TSH3, B12, [id number] #### [place] [address] [place] #### INSULIN, TESTF #### [facility] , Carbon dioxide, total [Moles /volume] in Serum or PlasmaOrdered By: Gertrude Navratil on 07-15-2023 CO2 [Moles/Vol] 29.1 mmol/L Normal 21.0-31.0 [facility] Comment on above: Performed By: #### C MP, CBC, T3T, TSH3, B12, [id number] #### [place] [address] [place] #### INSULIN, TESTF #### [facility] , Chloride [Moles/volume] in S nikki or PlasmaOrdered By: Gertrude Germainratil on 07-15-2023 Chloride [Moles/Vol] 104 mmol/L Normal 98-107 [facility] Comment on above: Performed By: #### C MP, CBC, T3T, TSH3, B12, [id number] #### [place] [address] [place] #### INSULIN, TESTF #### [facility] , Complete Blood Count Auto Di ffon 07-15-2023 Mean Corpuscular HGB Conc 33.3 g/dL Normal 32.0-35.0 [facility] Comment on above: Performed By: #### C MP, CBC, T3T, TSH3, B12, [id number] #### [place] [address] [place] #### INSULIN, TESTF #### [facility] , NRBC% 0.1 /100{WBC} Normal 0-0.5 [facility] Comment on above: Performed By: #### C MP, CBC, T3T, TSH3, B12, [id number] #### [place] [address] [place] #### INSULIN, TESTF #### [facility] , Comprehensive Metabolic Pane sonu 07-15-2023 Albumin [Mass/Vol] 4.9 g/dL Normal 3.5-5.[address] [facility] Comment on above: Performed By: #### C MP, CBC, T3T, TSH3, B12, [id number] #### [place] [address] [place] #### INSULIN, TESTF #### [facility] , GFR/1.73 sq M.predicted MDRD (S/P/Bld) [Vol rate/Area] mL/min/{1.73_m2} Normal [facility] Comment on above: Performed By: #### C MP, CBC, T3T, TSH3, B12, [id number] #### [address] #### INSULIN, TESTF #### [facility] , Creatinine [Mass/volume] in Serum or PlasmaOrdered By: Gertrude Oneil on 07-15-2023 Creatinine [Mass/Vol] 0.61 mg/dL Normal 0.60-1.20 [facility] Comment on above: Performed By: #### C MP, CBC, T3T, TSH3, B12, [id number] #### [place] [address] [place] #### INSULIN, TESTF #### [facility] , Erythrocyte distribution wid th [Ratio] by Automated countOrdered By: Gertrude Oneil on 07-15-2023 Erythrocyte distribution width (RBC) [Ratio] 13.4 % Normal 11.9-15.3 [facility] Comment on above: Performed By: #### C MP, CBC, T3T, TSH3, B12, [id number] #### [place] [address] [place] #### INSULIN, TESTF #### [facility] , Erythrocytes [#/volume] in B lood by Automated countOrdered By: Gertrude Oneil on 07-15-2023 RBC (Bld) [#/Vol] 4.29 10*6/uL Normal 3.60-5.00 [facility] Comment on above: Performed By: #### C MP, CBC, T3T, TSH3, B12, [id number] #### [address] #### INSULIN, TESTF #### [facility] , Glucose [Mass/volume] in Ser um or PlasmaOrdered By: Gertrude Oneil on 07-15-2023 Glucose [Mass/Vol] 72 mg/dL Normal 70-100 [facility] Comment on above: ADA recommended refe rence rangeRandom Glucose Reference Range is dependent on time and content of last meal. Glucose of more than 200 mg/dL in a nonstressed, ambulatory subject supports the diagnosis of Diabetes Mellitus. Result Comment: [place] om Glucose Reference Range is dependent on time and content of last meal. Glucose of more than 200 mg/dL in a nonstressed, ambulatory subject supports the diagnosis of Diabetes Mellitus. ADA recommended reference range Performed By: #### C MP, CBC, T3T, TSH3, B12, [id number] #### [place] [address] [place] #### INSULIN, TESTF #### [facility] , Hematocrit [Volume Fraction] of Blood by Automated countOrdered By: Gertrude Oneil on 07-15-2023 Hematocrit (Bld) [Volume fraction] 37.4 % Normal 34.0-46.4 [facility] Comment on above: Performed By: #### C MP, CBC, T3T, TSH3, B12, [id number] #### [facility] [address] [place] [address] [place] #### INSULIN, TESTF #### [facility] , Hemoglobin [Mass/volume] in BloodOrdered By: Gertrude Oneil on 07-15-2023 Hemoglobin (Bld) [Mass/Vol] 12.4 g/dL Normal 11.8-15.4 [facility] Comment on above: Performed By: #### C MP, CBC, T3T, TSH3, B12, [id number] #### [facility] [address] [place] [address] #### INSULIN, TESTF #### [facility] , Insulinon 07-15-2023 Insulin 13.8 u[iU]/mL Normal 2.6-24.9 [facility] Comment on above: Order Comment: KARLY RIVAS FOR THE TEST/FRRE RESULT FOR DR ENAMORADO IN [place] Result Comment: Perf ormed at: - [facility] [address] [id number] Social Media Executive: Long Phillips PhD, Phone: [phone] PERFORMED BY: [place] [address] PATHOLOGIST SMOKING PIPES CLEANER TIERA RAMIREZ M.D. Performed By: #### C MP, CBC, T3T, TSH3, B12, [id number] #### [address] #### INSULIN, TESTF #### [facility] , Leukocytes [#/volume] correc adry for nucleated erythrocytes in Blood by Automated counOrdered By: Gertrude Oneil on 07-15-2023 WBC corrected for nucl RBC Auto (Bld) [#/Vol] 5.4 10*3/uL 3.8-11.6 [facility] Leukocytes [#/volume] in Blo od by Automated countOrdered By: Gertrude Oneil on 07-15-2023 WBC (Bld) [#/Vol] 5.4 10*3/uL Normal 3.8-11.6 [facility] Comment on above: Performed By: #### C MP, CBC, T3T, TSH3, B12, [id number] #### [facility] [address] [place] [address] #### INSULIN, TESTF #### [facility] , Lymphocytes [#/volume] in Bl ood by Automated countOrdered By: Gertrude Oneil on 07-15-2023 Lymphocytes (Bld) [#/Vol] 2.4 10*3/uL Normal 1.00-4.8 [facility] Comment on above: Performed By: #### C MP, CBC, T3T, TSH3, B12, [id number] #### [facility] [address] [place] [address] [place] #### INSULIN, TESTF #### [facility] , Lymphocytes/100 leukocytes i n Blood by Automated countOrdered By: Gertrude Oneil on 07-15-2023 Lymphocytes/100 WBC (Bld) 44.0 % Normal . [facility] Comment on above: Performed By: #### C MP, CBC, T3T, TSH3, B12, [id number] #### [facility] [address] [place] [address] [place] #### INSULIN, TESTF #### [facility] , MCH [Entitic mass] by Automa adry countOrdered By: Gertrude Oneil on 07-15-2023 MCH (RBC) [Entitic mass] 29.0 pg Normal 24.7-34.3 [facility] Comment on above: Performed By: #### C MP, CBC, T3T, TSH3, B12, [id number] #### [place] [address] [place] #### INSULIN, TESTF #### [facility] , MCHC Auto (RBC) [Mass/Vol]Or dered By: Gertrude Oneil on 07-15-2023 MCHC (RBC) [Mass/Vol] 33.3 g/dL 32.0-35.0 [facility] MCV [Entitic volume] by Auto mated countOrdered By: Gertrude Oneil on 07-15-2023 MCV (RBC) [Entitic vol] 87.1 fL Normal 80-100 [facility] Comment on above: Performed By: #### C MP, CBC, T3T, TSH3, B12, [id number] #### [facility] [address] [place] [address] #### INSULIN, TESTF #### [facility] , Neutrophils [#/volume] in Bl ood by Automated countOrdered By: Gertrude Oneil on 07-15-2023 Neutrophils (Bld) [#/Vol] 2.5 10*3/uL Normal 1.8-7.7 [facility] Comment on above: Performed By: #### C MP, CBC, T3T, TSH3, B12, [id number] #### [address] #### INSULIN, TESTF #### [facility] , No Panel InformationOrdered By: Gertrude Oneil on 07-15-2023 Estimated GFR (CKD-EPI) > 60.0 mL/Min [facility] Creatinine Clearance (Chem N/A [facility] Nucleated erythrocytes [Pres ence] in Blood by Automated countOrdered By: Gertrude Oneil on 07-15-2023 Nucleated RBC Auto Ql (Bld) 0.1 /100{WBC} 0-0.5 [facility] Platelet mean volume [Entiti c volume] in Blood by Automated countOrdered By: Gertrude Oneil on 07-15-2023 Platelet mean volume (Bld) [Entitic vol] 9.9 fL Normal 6.3-10.7 [facility] Comment on above: Performed By: #### C MP, CBC, T3T, TSH3, B12, [id number] #### [place] [address] [place] #### INSULIN, TESTF #### [facility] , Platelets [#/volume] in Bloo d by Automated countOrdered By: Gertrude Oneil on 07-15-2023 Platelets (Bld) [#/Vol] 263 10*3/uL Normal 150-450 [facility] Comment on above: Performed By: #### C MP, CBC, T3T, TSH3, B12, [id number] #### [facility] [address] [place] [address] [place] #### INSULIN, TESTF #### [facility] , Potassium [Moles/volume] in Serum or PlasmaOrdered By: Gertrude Oneil on 07-15-2023 Potassium [Moles/Vol] 4.2 mmol/L Normal 3.5-5.1 [facility] Comment on above: Performed By: #### C MP, CBC, T3T, TSH3, B12, [id number] #### [facility] [address] [place] [address] [place] #### INSULIN, TESTF #### [facility] , Protein [Mass/volume] in Ser um or PlasmaOrdered By: Gertrude Oneil on 07-15-2023 Protein [Mass/Vol] 7.5 g/dL Normal 6.4-8.9 [facility] Comment on above: Performed By: #### C MP, CBC, T3T, TSH3, B12, [id number] #### [facility] [address] [place] [address] [place] #### INSULIN, TESTF #### [facility] , Serum globulin measurement b y calculation (mass/volume)Ordered By: Gertrude Oneil on 07-15-2023 Globulin (S) [Mass/Vol] 2.6 g/dL [facility] Comment on above: Performed By: #### C MP, CBC, T3T, TSH3, B12, [id number] #### [facility] [address] [place] [address] [place] #### INSULIN, TESTF #### [facility] , Serum or plasma albumin/glob ulin mass ratioOrdered By: Gertrude Oneil on 07-15-2023 Albumin/Globulin [Mass ratio] 1.9 {ratio} [facility] Comment on above: Performed By: #### C MP, CBC, T3T, TSH3, B12, [id number] #### [facility] [address] #### INSULIN, TESTF #### [facility] , Serum or plasma anion gap de terminationOrdered By: Gertrude Oneil on 07-15-2023 Anion gap [Moles/Vol] 11.1 mmol/L Normal 6.0-15.0 [facility] Comment on above: Performed By: #### C MP, CBC, T3T, TSH3, B12, [id number] #### [address] #### INSULIN, TESTF #### [facility] , Sodium [Moles/volume] in Ser um or PlasmaOrdered By: Gertrude Oneil on 07-15-2023 Sodium [Moles/Vol] 140 mmol/L Normal 136-145 [facility] Comment on above: Performed By: #### C MP, CBC, T3T, TSH3, B12, [id number] #### [address] #### INSULIN, TESTF #### [facility] , Testosterone,Freeon 07-15-19 24 Testosterone,Free 0.7 pg/mL Normal 0.0-4.2 [facility] Comment on above: Order Comment: KARLY RIVAS FOR THE TEST/FRRE RESULT FOR DR EANMORADO IN [facility] Result Comment: Perf ormed at: - [facility] [address] [id number] Social Media Executive: Zohra Wren MD, Phone: [phone] Performed By: #### C MP, CBC, T3T, TSH3, B12, [id number] #### [place] [address] [place] #### INSULIN, TESTF #### [facility] , Thyrotropin [Units/volume] i n Serum or PlasmaOrdered By: Gertrude Oneil on 07-15-2023 TSH Qn 0.94 m[IU]/L Normal 0.45-5.33 [facility] Comment on above: Performed By: #### C MP, CBC, T3T, TSH3, B12, [id number] #### [facility] [address] [place] [address] [place] #### INSULIN, TESTF #### [facility] , Triiodothyronine (T3) Totalo n 07-15-2023 Triiodothyronine (T3) Total 1.36 ng/mL Normal 0.87-1.78 [facility] Comment on above: Performed By: #### C MP, CBC, T3T, TSH3, B12, [id number] #### [facility] [address] [place] [address] [place] #### INSULIN, TESTF #### [facility] , Triiodothyronine (T3) [Mass/ volume] in Serum or PlasmaOrdered By: Gertrude Oneil on 07-15-2023 T3 [Mass/Vol] 1.36 ng/mL 0.87-1.78 [facility] Urea nitrogen [Mass/volume] in Serum or PlasmaOrdered By: Gertrude Navratil on 07-15-2023 Urea nitrogen [Mass/Vol] 13 mg/dL Normal 7-25 [facility] Comment on above: Performed By: #### C MP, CBC, T3T, TSH3, B12, [id number] #### [facility] [address] [place] [address] [place] #### INSULIN, TESTF #### [facility] , Vitamin B12 ser/plasOrdered By: Gertrude Navratil on 07-15-2023 Cobalamin (Vitamin B12) [Mass/Vol] 543 pg/mL Normal 180-914 [facility] Comment on above: Performed By: #### C MP, CBC, T3T, TSH3, B12, [id number] #### [facility] [address] [place] [address] [place] #### INSULIN, TESTF #### [facility] , Vitamin D 25 Hydroxy Totalon 07-15-2023 Vitamin D 25 Hydroxy Total 31.6 ng/mL Normal 30-100 [facility] Comment on above: Result Comment: [place] MIN D STATUS 25(OH)VITAMIN D RANGE (ng/mL) Deficient <20 Insufficient 20 to <30 Sufficient 30 to 100 Reference: Delmis Palacios, Lilly SELBY, et al. Evaluation,treatment, and prevention of vitamin D deficiency; an Endocrine Society clinical practice guideline. JCEM. 2010; 96(7):1911-30. PERFORMED BY: [place] [address] PATHOLOGIST SMOKING PIPES CLEANER TIERA RAMIREZ M.D. Performed By: #### C MP, CBC, T3T, TSH3, B12, [id number] #### [address] #### INSULIN, TESTF #### [facility] , Vitamin D+Metabolites [Mass/ volume] in Serum or PlasmaOrdered By: Gertrude Oneil on 07-15-2023 Vitamin D+Metabolites [Mass/Vol] 31.6 ng/mL 30-100 [facility] Comment on above: VITAMIN D STATUS 25( OH)VITAMIN D RANGE (ng/mL) Deficient <20 Insufficient 20 to <30Sufficient 30 to 100Reference: Delmis Palacios, Lilly SELBY, et al. Evaluation,treatment, and prevention of vitamin D deficiency; an Endocrine Society clinical practice guideline. JCEM. 2010; 96(7):1911-30. Quick Strepon 11-28-2022 S. pyogenes Org specific cx Ql (Throat) Negative [facility] Other Quick Strep [facility] Other Test, Urineon 12-0 Beta HCG ( test) Ql (U) Positive [facility] Other Urinalysis - DIPSTICKon 12-0 Appearance (U) clear [employer] Other Bilirubin Ql (U) Negative [employer] Other Color (U) yellow [facility] Other Glucose Ql (U) 100 mg/dL [employer] Other Hemoglobin Ql (U) Negative [employer] oa[employer] Other Ketones Ql (U) Negative [employer] Other Leukocyte esterase Test strip Ql (U) Negative [facility] Other Nitrite Ql (U) Negative [employer] Other pH (U) 6.5 [pH] [facility] Other Protein Ql (U) Negative [employer] Other Specific gravity (U) [Rel density] 1.030 [place] [employer] Other Urobilinogen (U) [Mass/Vol] 0.2 mg/dL [place] [employer] Other Urinalysis - DIPSTICK Nor [employer] Other COVID/FLU RT-PCRon SARS-CoV-2 (COVID-19) RNA ANGELITO+probe Ql (Unsp spec) Negative [facility] Other COVID/FLU RT-PCR Negative [facility] [employer] Other Quick Strepon 03-27-2022 S. pyogenes Org specific cx Ql (Throat) Negative [facility] Other Quick Strep [facility] Other COVID Quick Testingon 2021 Result Negative [facility] Other Quick Strepon 01-15-2022 S. pyogenes Org specific cx Ql (Throat) Negative [facility] Other Urinalysis - AUTOMATEDon Appearance (U) cloudy [employer] Other Bilirubin Ql (U) Negative [employer] Other Color (U) dark yellow [facility] Other Glucose Ql (U) Negative [employer] Other Hemoglobin Ql (U) large [employer] Other Ketones Ql (U) trace [employer] Other Leukocyte esterase Test strip Ql (U) moderate [facility] Other Nitrite Ql (U) Negative [employer] Other pH (U) 6.5 [pH] [facility] Other Protein Ql (U) 30 [employer] Other Specific gravity (U) [Rel density] 1.025 [facility] Other Urobilinogen (U) [Mass/Vol] 0.2 mg/dL [facility] Other Urinalysis - AUTOMATED No rt [employer] Other Urine Cultureon 01-15-2022 Bacteria identified Cx Nom (U) U[facility] Other COVID Quick Testingon 2021 Result Negative [facility] Other CBC AUTO DIFFon 09-22-2017 Basophils Auto #/vol (Bld) 0.0 103/ul Normal 0.0-0.1 [facility] Comment on above: Performed By: #### C BC ####[facility] [id number] [place] [id number] Destiny Basophils/100 WBC Auto (Bld) 0.3 % Normal 0.2-2.0 [facility] Comment on above: Performed By: #### C BC ####[facility] [id number] [place] [id number] Destiny Eosinophils 0.1 103/ul Normal 0.0-0.7 [facility] Comment on above: Performed By: #### C BC ####[facility] Mywbbitaua[address] [place] Eosinophils/100 leukocytes 0.8 % Critically low 0.9-7.0 [facility] Comment on above: Performed By: #### C BC ####[facility] M[address]zewg[address] [place] Erythrocyte distribution width Auto Ratio (RBC) 12.6 % Normal 11.0-15.0 [facility] Comment on above: Performed By: #### C BC ####[facility] [address] [place] [address] Destiny Erythrocytes (RBC) 4.26 106/ul Normal 3.40-5.30 [facility] Comment on above: Performed By: #### C BC ####[facility] [address] [place] [address] Destiny Hematocrit (HCT) 37.1 % Normal 36.0-48.0 [facility] Comment on above: Performed By: #### C BC ####[facility] [address] [place] [address] Destiny Hemoglobin mass conc (Bld) 12.9 g/dL Normal 12.0-16.0 [facility] Comment on above: Performed By: #### C BC ####[facility] [address] [place] [address] Destiny IG # 0.02 10e3/ul Normal 0.00-0.03 [facility] Comment on above: Performed By: #### C BC ####[facility] [facility] [address] [place] [address] Destiny IG % 0.2 % Normal 0.0-0.5 [facility] Comment on above: Performed By: #### C BC ####[facility] [address] [place] [address] Destiny Lymphocytes 1.5 103/ul Normal 1.2-3.8 [facility] Comment on above: Performed By: #### C BC ####[facility] Dffatptfoo8957 [place] [id number] Destiny Lymphocytes/100 leukocytes 13.9 % Critically low 20.5-60.0 [facility] Comment on above: Performed By: #### C BC ####[facility] Mhcnfpkglv4552 [place] [id number] Destiny MANUAL DIFF REQ NO Normal [facility] Comment on above: Performed By: #### C BC ####[facility] Tnaawhbwdf0999 [place] [id number] Destiny MCH 30.3 pg Normal 26.7-34.0 [facility] Comment on above: Performed By: #### C BC ####[facility] Vlvkmlpkqp3789 [place] [id number] Destiny MCHC mass conc (RBC) 34.8 g/dL Normal 29.9-35.2 [facility] Comment on above: Performed By: #### C BC ####[facility] [address] [place] [address] Destiny MCV 87.1 fL Normal 79.1-95.6 The [facility] Comment on above: Performed By: #### C BC ####[facility] Cmihzahbsp8273 [place] [address]Gerken Destiny Monocytes 0.1 103/ul Critically low 0.3-0.8 The [facility] Comment on above: Performed By: #### C BC ####[facility] Lvzxyhbvpb4820 [place] [id number] Destiny Monocytes/100 leukocytes 1.3 % Critically low 1.7-12.0 The [facility] Comment on above: Performed By: #### C BC ####[facility] Qjuysddtdt5750 [place] [id number] Destiny Neutrophils 8.7 103/ul Critically high 1.4-6.5 [facility] Comment on above: Performed By: #### C BC ####[facility] Xlxgoxqxss1046 [place] [id number] Destiny Neutrophils/100 WBC Auto (Bld) 83.5 % Critically high 43.0-75.0 [facility] Comment on above: Performed By: #### C BC ####[facility] Pfkdgzwjnf4358 [place], [place] [address]XfwndhSindy Dixon Platelet mean volume (PMV) 10.0 fL Normal 9.5-13.5 [facility] Comment on above: Performed By: #### C BC ####[facility] Asnayhinur1471 [place] [address]Sindy Dixon Platelets 334 103/ul Normal 150-450 [facility] Comment on above: Performed By: #### C BC ####[facility] Bhgyilhisi2349 [place] [id number] Dixon WBC (Leukocytes) 10.5 103/ul Normal 4.0-11.0 The [facility] Comment on above: Performed By: #### C BC ####[facility] Xw[address] [place], [place] [id number] Destiny PREG HCG QUALon 09-22-2017 , QUAL Negative Normal NEGATIVE [facility] Comment on above: Performed By: #### P REG ####[facility] Kkugtemais[address] [place], [place] [address]ken Destiny PROF 14(COMP METB)on 018 Alanine aminotransferase (ALT) 30 U/L Normal 9-52 [facility] Comment on above: Performed By: #### C MP ####[facility] Nfilzzpcno[address] [place], [place] [id number] Dixon Albumin 4.9 g/dL Normal 3.5-5.0 The [facility] Comment on above: Performed By: #### C MP ####[facility] Ohqfhewlny3991 [address] Destiny Albumin/Globulin Ratio 1.8 {ratio} Normal T [facility] Comment on above: Performed By: #### C MP ####[facility] Gdtsj[address] [place] [address] Destiny Alkaline phosphatase (ALP) 68 U/L Normal 65-260 The [facility] Comment on above: Performed By: #### C MP ####[facility] Uihwelwsua3653 [place] [id number] Destiny Anion gap 17.3 mmol/L Normal The [facility] Comment on above: Performed By: #### C MP ####[facility] Egnedwvbgb4041 [place], [place] [address]Feesgi Destiny Aspartate aminotransferase (AST) 28 U/L Normal 14-36 [facility] Comment on above: Performed By: #### C MP ####[facility] Gekrhnuitb0225 [address] Destiny Bilirubin Ql (U) 0.4 mg/dL Normal 0.2-1.3 [facility] Comment on above: Performed By: #### C MP ####[facility] Ajnt[address]kze[address] [place] [address] Destiny BUN/Creatinine Ratio 17.7 mg/mg Normal The [facility] Comment on above: Performed By: #### C MP ####[facility] [address]ux[address]ogx[address] [place] [address] Destiny Calcium 10.1 mg/dL Normal 8.4-10.2 The [facility] Comment on above: Performed By: #### C MP ####[facility] [address] [place], [place] [address]Gerken Destiny Chloride 101 mmol/L Normal 98-107 The [facility] Comment on above: Performed By: #### C MP ####[facility] Tpgakdcxpl6922 [place] [id number] Destiny CO2 21.0 mmol/L Critically low 22.0-30.0 [facility] Comment on above: Performed By: #### C MP ####[facility] [address] [place], [place] [address]Gerken Destiny Creatinine 0.63 mg/dL Normal 0.52-1.04 The [facility] Comment on above: Performed By: #### C MP ####[facility] Wyxyuxtxmg[address] [place], [place] [address]Gerken Destiny eGFR (non-black) mL/min/{1.73_m2} Normal >=60 Th [facility] Comment on above: Performed By: #### C MP ####[facility] Mhanmcipsp4771 [place], [place] [address]Xprurn Destiny Globulin 2.8 g/dL Normal [facility] Comment on above: Performed By: #### C MP ####[facility] Traekuuqcn1102 [place], [place] [address]Wulfpb Destiny Glucose mass conc 115 mg/dL Critically high 74-106 Th [facility] Comment on above: Performed By: #### C MP ####[facility] Jxxqrmlgwz9554 [place], [place] [address]Zafqsa Destiny Potassium molar conc 4.1 mmol/L Normal 3.4-5.0 [facility] Comment on above: Performed By: #### C MP ####[facility] Tbhpmqccxl7903 [place], [place] [address]Bwtyuc Destiny Protein 7.6 g/dL Normal 6.1-8.2 [facility] Comment on above: Performed By: #### C MP ####[facility] Cuukteuhsf3880 [place], [place] [address]Pkrkog Destiny Sodium 136 mmol/L Critically low 137-145 [facility] Comment on above: Performed By: #### C MP ####[facility] Rzanocdfry5778 [place], [place] [address]Wxrwxr Desitny Urea nitrogen 11.0 mg/dL Normal 6.4-19.3 [facility] Comment on above: Performed By: #### C MP ####[facility] Qfhannwwvv6027 [place], [place] [address]Whpmfb Destiny Discharge Summaryon 07-22-19 18 Discharge Summary MR[id number] Name: Saran Simpson Admitted: 07/16/2017 Discharged: [...] treated for herdepression and anxiety and at [facility] by Dr. Garcia and her therapist Val. Saran states that this is her 2nd suicide attempt, her lastattempt was in 2016 after she broke up with her 26-year-old boyfriend. Atthat time, she was hospitalized at [facility] and was diagnosed with majordepression and anxiety. [...] PSYCHIATRIC HISTORY: The patient receives outpatient treatment [facility]. Her doctor is Dr. Garcia and she sees a therapist Priya Ventura.She has past diagnosis of major depressive disorder and generalized anxietydisorder. She [facility]. At that time, she did complete suicide,but the rope that she used broke and she was admitted as a result.SOCIAL HISTORY: The patient is in 11th grade at [employer].She is in regular classes. The patient is [...] Montelongo and Dr. Jackson uponadmission to the [facility] Unit. Suicide and runaway precautions wereinstituted for [...] EXAMINATION: At discharge, the patient is a 10-sxbj-rzoosfqyd who appeared her stated age. She is [...] Insight and judgment are appropriate and fair.DISCHARGE DIAGNOSES:Lawrence I: Mood disorder, not otherwise specified.Lawrence II: Deferred.Lawrence III: None.Lawrence IV: Etjz-uq-enwvyamu psychosocial stressors.Lawrence V: Global assessment of function is 60%.DISCHARGE MEDICATIONS: Celexa 40 mg daily.FOLLOWUP: The patient is to follow up with Dr. Garcia on 08/04/2017 at 1p.m. at [facility]. The patient is to follow up with her therapist on07/24/2017 at 11 a.m. at [facility] also.Time on discharge 31 minElectronically Signed by:Clement Jackson M.D. 07/29/2017 02:45 P Clement Jackson M.D. I personally saw this patient on the day of the encounter, performed thekey portion(s) of the service and participated in the management andconfirm the resident's documentation. Please note there may be anadditional personal documentation from me. Date Dict: 07/21/2017/02:44 P/Marcelo Montelongo, MDDate Trans: 07/22/2017 10:52 [id number] Normal The [facility] TOX PANEL URINEon 07-18-2017 50 THC Positive Abnormal NEGATIVE The [facility] Comment on above: Order Comment: No: D o not add to previous draw Performed By: #### 3 1079 ####[facility] BARBITURATES Negative Normal NEGATIVE [facility] Comment on above: Order Comment: No: D o not add to previous draw Performed By: #### 3 1079 ####[facility] MONO AMPHET Negative Normal NEGATIVE The [facility] Comment on above: Order Comment: No: D o not add to previous draw Performed By: #### 3 1079 ####[facility]3000 [address] [facility].[address] PROPOXYPHENE Negative Normal NEGATIVE [facility] Comment on above: Order Comment: No: D o not add to previous draw Performed By: #### 3 1079 ####[facility] TRICYCLICS Negative Normal NEGATIVE The [facility] Comment on above: Order Comment: No: D o not add to previous draw Performed By: #### 3 1079 ####[facility] [place] [address], [place] Urine, benzodiazepines presence Negative Normal NEGATIVE The [facility] Comment on above: Order Comment: No: D o not add to previous draw Performed By: #### 3 1079 ####[facility] [place] [address], [place] Urine, cocaine presence Negative Normal NEGATIVE The [facility] Comment on above: Order Comment: No: D o not add to previous draw Performed By: #### 3 1079 ####[facility] [place] [address], [place] Urine, methadone presence Negative Normal NEGATIVE The [facility] Comment on above: Order Comment: No: D o not add to previous draw Performed By: #### 3 1079 ####[facility] [place] [address], [place] Urine, opiates presence Negative Normal NEGATIVE The [facility] Comment on above: Order Comment: No: D o not add to previous draw Performed By: #### 3 1079 ####[facility] [place] [address], [place] Urine, phencyclidine presence Negative Normal NEGATIVE The [facility] Comment on above: Order Comment: No: D o not add to previous draw Performed By: #### 3 1079 ####[facility] [place] [address], [place] URINALYSISon 07-18-2017 Bilirubin (total) Negative Normal NEGATIVE The [facility] Comment on above: Order Comment: No: D o not add to previous draw Performed By: #### 1 0008 ####[facility] [place] [address], [place] BLOOD Negative Normal NEGATIVE The [facility] Comment on above: Order Comment: No: D o not add to previous draw Performed By: #### 1 0008 ####[facility] [place] [address], [facility] EPIS MANY Abnormal FEW The [facility] Comment on above: Order Comment: No: D o not add to previous draw Performed By: #### 1 0008 ####[facility] [place] [address], [facility] Erythrocytes (RBC) 0-2 Abnormal 0-0 The [facility] Comment on above: Order Comment: No: D o not add to previous draw Performed By: #### 1 0008 ####[facility] [place] [address], [facility] Glucose mass conc Negative Normal NEGATIVE The [facility] Comment on above: Order Comment: No: D o not add to previous draw Performed By: #### 1 0008 ####[facility] [place] [address], [facility] KETONE Negative Normal NEGATIVE The [facility] Comment on above: Order Comment: No: D o not add to previous draw Performed By: #### 1 0008 ####[facility] [place] [address], [facility] LEUK PADMINI Negative Normal NEGATIVE The [facility] Comment on above: Order Comment: No: D o not add to previous draw Performed By: #### 1 0008 ####[facility] [place] [address], [facility] MUCUS THREADS MOD Abnormal NONE SEEN The [facility] Comment on above: Order Comment: No: D o not add to previous draw Performed By: #### 1 0008 ####[facility] [place] [address], [facility] pH of blood 5.0 [pH] Normal 5.0-8.0 The [facility] Comment on above: Order Comment: No: D o not add to previous draw Performed By: #### 1 0008 ####[facility] Protein 30 mg/dL Abnormal NEGATIVE The [facility] Comment on above: Order Comment: No: D o not add to previous draw Performed By: #### 1 0008 ####[facility]3000 [facility].[address] SPEC GRAV 1.028 High 1.015-1.020 The [facility] Comment on above: Order Comment: No: D o not add to previous draw Performed By: #### 1 0008 ####[facility]3000 [facility].[address] Urine, appearance SL CLOUDY Abnormal CLEAR The [facility] Comment on above: Order Comment: No: D o not add to previous draw Performed By: #### 1 0008 ####[place] [address] [facility].[address] Urine, color YELLOW Normal YELLOW [facility] Comment on above: Order Comment: No: D o not add to previous draw Performed By: #### 1 0008 ####[facility]3000 [facility].[address] Urine, nitrite presence Negative Normal NEGATIVE The [facility] Comment on above: Order Comment: No: D o not add to previous draw Performed By: #### 1 0008 ####[place] [address] [facility].[address] WBC UA 0-2 Abnormal 0-0 The [facility] Comment on above: Order Comment: No: D o not add to previous draw Performed By: #### 1 0008 ####[facility]3000 [facility] [place] [address], [facility] CBC W/DIFFon 07-17-2017 ABS BASOPHILS 0.0 10*3/uL Normal 0.0-0.3 The [facility] Comment on above: Order Comment: No: D o not add to previous draw Performed By: #### 5 0103 ####[facility]3000 [facility] [place] [address], [facility] ABS IMM GRANS 0.0 10*3/uL Normal 0.0-0.2 The [facility] Comment on above: Order Comment: No: D o not add to previous draw Performed By: #### 5 0103 ####[facility] [place] [address], [facility] Basophils Auto #/vol (Bld) 0.3 % Normal 0.0-2.0 The [facility] Comment on above: Order Comment: No: D o not add to previous draw Performed By: #### 5 0103 ####[facility]3000 [facility] [place] [address], [facility] Eosinophils 0.1 10*3/uL Normal 0.0-0.5 The [facility] Comment on above: Order Comment: No: D o not add to previous draw Performed By: #### 5 0103 ####[facility]3000 [facility] [place] [address], [facility] Eosinophils/100 leukocytes 1.6 % Normal 0.0-4.0 The [facility] Comment on above: Order Comment: No: D o not add to previous draw Performed By: #### 5 0103 ####[facility]3000 [facility] [place] [address], [facility] Erythrocyte distribution width Auto Ratio (RBC) 13.2 % Normal 11.5-15.5 [facility] Comment on above: Order Comment: No: D o not add to previous draw Performed By: #### 5 0103 ####[facility]3000 [facility] [place] [address], [facility] Erythrocytes (RBC) 0 % Normal 0-0 [facility] Comment on above: Order Comment: No: D o not add to previous draw Performed By: #### 5 3 ####[facility]3000 [facility].[address] Erythrocytes (RBC) 4.09 10*6/uL Low 4.10-5.20 The [facility] Comment on above: Order Comment: No: D o not add to previous draw Performed By: #### 5 0103 ####[facility] Hematocrit (HCT) 36.1 % Normal 34.0-48.0 The [facility] Comment on above: Order Comment: No: D o not add to previous draw Performed By: #### 5 0103 ####[facility] Hemoglobin mass conc (Bld) 12.0 g/dL Normal 11.5-16.0 The [facility] Comment on above: Order Comment: No: D o not add to previous draw Performed By: #### 5 0103 ####[facility] IMMATURE GRANS 0.3 % Normal 0.0-1.0 The [facility] Comment on above: Order Comment: No: D o not add to previous draw Performed By: #### 5 0103 ####[facility] Lymphocytes 3.6 10*3/uL Normal 1.1-6.1 [facility] Comment on above: Order Comment: No: D o not add to previous draw Performed By: #### 5 0103 ####[facility]3000 [facility].[address] Lymphocytes/100 leukocytes 48.1 % High 25.0-45.0 The [facility] Comment on above: Order Comment: No: D o not add to previous draw Performed By: #### 5 0103 ####[facility] [place] [address], [facility] MCH 29.3 pg Normal 24.0-35.0 The [facility] Comment on above: Order Comment: No: D o not add to previous draw Performed By: #### 5 0103 ####[facility] MCHC mass conc (RBC) 33.2 g/dL Normal 30.0-37.0 The [facility] Comment on above: Order Comment: No: D o not add to previous draw Performed By: #### 5 0103 ####[facility] MCV 88.3 fL Normal 75.0-95.0 The [facility] Comment on above: Order Comment: No: D o not add to previous draw Performed By: #### 5 0103 ####[facility]3000 [facility].[address] Monocytes 0.4 10*3/uL Normal 0.1-1.1 The [facility] Comment on above: Order Comment: No: D o not add to previous draw Performed By: #### 5 0103 ####[facility] MONOS 5.8 % Normal 3.0-8.0 The [facility] Comment on above: Order Comment: No: D o not add to previous draw Performed By: #### 5 0103 ####[facility] Neutrophils 3.3 10*3/uL Normal 1.8-10.1 [facility] Comment on above: Order Comment: No: D o not add to previous draw Performed By: #### 5 0103 ####[facility] Neutrophils/100 leukocytes 43.9 % Normal 39.0-75.0 The [facility] Comment on above: Order Comment: No: D o not add to previous draw Performed By: #### 5 0103 ####[facility] [place] [address], [facility] PLAT CNT 289 10*3/uL Normal 150-450 The [facility] Comment on above: Order Comment: No: D o not add to previous draw Performed By: #### 5 0103 ####[facility]3000 [facility].[address] WBC (Leukocytes) 7.5 10*3/uL Normal 4.5-13.5 The [facility] Comment on above: Order Comment: No: D o not add to previous draw Performed By: #### 5 0103 ####[facility]3000 [facility].[address] COMP METABOLIC PANELon 07-17 Alanine aminotransferase (ALT) 8 U/L Normal 7-[address] [facility] Comment on above: Order Comment: No: D o not add to previous draw Performed By: #### 4 6413, 91197, 09064, 89616, 04956 ####[facility]3000 [facility].[address] Albumin 4.1 g/dL Normal 3.5-5.7 The [facility] Comment on above: Order Comment: No: D o not add to previous draw Performed By: #### 4 6413, 04473, 53289, 43723, 64325 ####[facility]3000 [facility].[address] ALKALINE PHOSPH 29 IU/L Low 40-[address] [facility] Comment on above: Order Comment: No: D o not add to previous draw Performed By: #### 4 6413, 53006, 40994, 13330, 38389 ####[facility]3000 [facility].[address] Aspartate aminotransferase (AST) 14 U/L Normal 13-[address] [facility] Comment on above: Order Comment: No: D o not add to previous draw Performed By: #### 4 6413, 74369, 58933, 63867, 75587 ####[facility] [place] [address], [facility] Bilirubin (total) 0.4 mg/dL Normal 0.3-1.0 The [facility] Comment on above: Order Comment: No: D o not add to previous draw Performed By: #### 4 6413, 35613, 40523, 32444, 17017 ####[facility] [place] [address], [facility] Calcium 9.4 mg/dL Normal 8.6-10.3 The [facility] Comment on above: Order Comment: No: D o not add to previous draw Performed By: #### 4 6413, 38424, 11957, 30539, 56788 ####[facility] [place] [address], [facility] Chloride 105 mmol/L Normal 98-107 The [facility] Comment on above: Order Comment: No: D o not add to previous draw Performed By: #### 4 6413, 22173, 77567, 43638, 36152 ####[facility] [place] [address], [facility] CO2 24 mmol/L Normal 21-31 The [facility] Comment on above: Order Comment: No: D o not add to previous draw Performed By: #### 4 6413, 97773, 48124, 41194, 70537 ####[facility] [place] [address], [facility] Creatinine 0.67 mg/dL Normal 0.60-1.20 The [facility] Comment on above: Order Comment: No: D o not add to previous draw Performed By: #### 4 6413, 59297, 59278, 56896, 79886 ####[facility] [place] [address], [facility] eGFR (black) Calculation not validated for patients under 18 years Abnormal >60 The [facility] Comment on above: Order Comment: No: D o not add to previous draw Performed By: #### 4 6413, 68824, 29644, 37988, 42682 ####[facility] [place] [address], [facility] eGFR (non-black) Calculation not validated for patients under 18 years Abnormal >60 The [facility] Comment on above: Order Comment: No: D o not add to previous draw Performed By: #### 4 6413, 02011, 64196, 04027, 91619 ####[facility] [place] [address], [facility] Glucose mass conc 81 mg/dL Normal 70-100 The [facility] Comment on above: Order Comment: No: D o not add to previous draw Performed By: #### 4 6413, 35773, 15385, 00784, 66306 ####[facility] [place] [address], [facility] Potassium molar conc 3.6 mmol/L Normal 3.5-5.1 [facility] Comment on above: Order Comment: No: D o not add to previous draw Performed By: #### 4 6413, 32823, 82795, 10163, 87001 ####[facility] [place] [address], [facility] Protein 6.6 g/dL Normal 6.0-8.3 [facility] Comment on above: Order Comment: No: D o not add to previous draw Performed By: #### 4 6413, 59329, 22950, 06618, 01230 ####[facility] [place] [address], [facility] Sodium 137 mmol/L Normal 136-145 [facility] Comment on above: Order Comment: No: D o not add to previous draw Performed By: #### 4 6413, 64711, 00192, 99923, 85745 ####[facility] Urea nitrogen 15 mg/dL Normal 7-[address] [facility] Comment on above: Order Comment: No: D o not add to previous draw Performed By: #### 4 6413, 63471, 34207, 06944, 95826 ####[facility] FREE T3on 07-17-2017 Triiodothyronine (T3) free 3.7 pg/mL Normal 2.5-3.9 [facility] Comment on above: Order Comment: No: D o not add to previous draw Performed By: #### 4 6413, 51512, 31332, 91061, 71433 ####[facility] FREE T4on 07-17-2017 Thyroxine (T4) free 0.81 ng/dL Normal 0.71-1.85 The [facility] Comment on above: Order Comment: No: D o not add to previous draw Performed By: #### 4 6413, 04209, 32208, 46733, 01492 ####[facility] LIPID PROFILEon 07-17-2017 Cholesterol 191 mg/dL High 120-170 The [facility] Comment on above: Order Comment: No: D o not add to previous draw Result Comment: CHOL ESTEROL REFERENCE RANGE:20 YEARS AND OLDER CARDIOVASCULAR RISKLess than 200 mg/dl Low [id number] to 239 mg/dl Borderline Ikrq496 mg/dl and greater High Risk Performed By: #### 4 6413, 71766, 47972, 40095, 16205 ####[facility] Cholesterol to HDL Ratio 4.3 {ratio} Normal .0-4.5 [facility] Comment on above: Order Comment: No: D o not add to previous draw Performed By: #### 4 6413, 03815, 68451, 31643, 18042 ####[facility] [facility].[address] HDL Cholesterol 44 mg/dL Normal 23-[address] [facility] Comment on above: Order Comment: No: D o not add to previous draw Result Comment: Slig ht variation in normal range could be due to gender and/or age.HDL CHOLESTEROL REFERENCE RANGE:20 years and older Cardiovascular Risk> or =60 mg/dL [id number] TO 59 mg/dL Low Risk<40 mg/dL High Risk Performed By: #### 4 6413, 07796, 30023, 88476, 27446 ####[facility] LDL Cholesterol 128 mg/dL Normal 0-[address] [facility] Comment on above: Order Comment: No: D o not add to previous draw Result Comment: LDL IS A CALCULATIONLDL IS ONLY VALID IF THE TRIG IS LESS THAN 400. Performed By: #### 4 6413, 10952, 96601, 24779, 54616 ####[facility] [facility].[address] NON-HDL CHOLESTEROL 147 mg/dL Normal [facility] Comment on above: Order Comment: No: D o not add to previous draw Performed By: #### 4 6413, 05187, 01883, 05989, 71403 ####[facility] [facility].[address] Triglyceride 97 mg/dL Normal 37-148 The [facility] Comment on above: Order Comment: No: D o not add to previous draw Result Comment: TRIG LYCERIDE REFERENCE RANGE:20 YEARS AND OLDER CARDIOVASCULAR RISKLESS THAN 150 mg/dl LOW [id number] TO 199 mg/dl BORDERLINE [id number] mg/dl AND GREATER HIGH RISK Performed By: #### 4 6413, 25153, 74242, 46818, 43830 ####[facility] [facility].[address] VLDL CHOL 19 mg/dL Normal 0-40 [facility] Comment on above: Order Comment: No: D o not add to previous draw Performed By: #### 4 6413, 67240, 21385, 95368, 59125 ####[facility] [facility].[address] SERUM TESTon 07-17 TEST Negative Normal The [facility] Comment on above: Order Comment: No: D o not add to previous draw Performed By: #### 4 6473 ####[facility] [facility].[address] TSHon 07-17-2017 Thyroid stimulating hormone (TSH) 2.22 MICRO-IU/ML Normal 0.34-5.60 [facility] Comment on above: Order Comment: No: D o not add to previous draw Performed By: #### 4 6413, 02675, 59559, 48832, 38283 ####[facility] Vital Signs Date Time Vital Sign Value Performing Clinician Facility 07-16-2023 10:12-0500 Body mass index (BMI) [Ratio] 22.23 kg/m2 Pixel Press DO Work Phone: [facility] 07-16-2023 10:12-0500 Body weight 51.62 kg Krista Viji DO Work Phone: [facility] 07-16-2023 10:12-0500 Diastolic blood pressure 70 mm[Hg] Krista Viji DO Work Phone: [facility] 07-16-2023 10:12-0500 Systolic blood pressure 110 mm[Hg] Krista Viji DO Work Phone: [facility] 11-28-2022 13:55-0400 Body height 153.03 cm Rosemarie Ac Other [facility] Other 11-28-2022 13:55-0400 Body mass index (BMI) [Ratio] 27.69 kg/m2 Rosemarie Ac Other [facility] Other 11-28-2022 13:55-0400 Body temperature 97.5 [degF] Rosemarie Ac Other [facility] Other 11-28-2022 13:55-0400 Body weight 64.86 kg Rosemarie Ac Other [facility] Other 11-28-2022 13:55-0400 Diastolic blood pressure 82 mm[Hg] Rosemarie Ac Other [facility] Other 11-28-2022 13:55-0400 Respiratory rate 18 /min Rosemarie Ac Other [facility] Other 11-28-2022 13:55-0400 SaO2% (BldA) [Mass fraction] 98 % Rosemarie Ac Other [facility] Other 11-28-2022 13:55-0400 Systolic blood pressure 114 mm[Hg] Rosemarie Ac Other [facility] Other 05-15-2022 14:30-0500 Body height 153.03 cm Haley Dennison Other [facility] Other 05-15-2022 14:30-0500 Body mass index (BMI) [Ratio] 21.69 kg/m2 Haley Dennison Other [facility] Other 05-15-2022 14:30-0500 Body weight 50.8 kg Haley Quinnraza Other [facility] Other 05-15-2022 14:30-0500 Diastolic blood pressure 73 mm[Hg] Haley Quinnraza Other [facility] Other 05-15-2022 14:30-0500 SaO2% (BldA) [Mass fraction] 100 % Haley Quinnraza Other [facility] Other 05-15-2022 14:30-0500 Systolic blood pressure 108 mm[Hg] Haley Quinnraza Other [facility] Other 03-27-2022 14:15-0400 Body height 153.03 cm Harmony Scarlett Other [facility] Other 03-27-2022 14:15-0400 Body mass index (BMI) [Ratio] 21.3 kg/m2 Harmony Scarlett Other [facility] Other 03-27-2022 14:15-0400 Body temperature 96.8 [degF] Harmony Scarlett Other [facility] Other 03-27-2022 14:15-0400 Body weight 49.9 kg Harmony Scarlett Other [facility] Other 03-27-2022 14:15-0400 Respiratory rate 18 /min Harmony Scarlett Other [facility] Other 03-27-2022 14:15-0400 SaO2% (BldA) [Mass fraction] 99 % Harmony Pantoja Other [facility] Other 01-15-2022 15:00-0400 Body height 153.03 cm Rosemarie Spraguemond Other [facility] Other 01-15-2022 15:00-0400 Body mass index (BMI) [Ratio] 21.3 kg/m2 Rosemarie Yashira Other [facility] Other 01-15-2022 15:00-0400 Body temperature 98.8 [degF] Rosemarie Yashira Other [facility] Other 01-15-2022 15:00-0400 Body weight 49.9 kg Rosemarie Yashira Other [facility] Other 01-15-2022 15:00-0400 Respiratory rate 18 /min Rosemarie Yashira Other [facility] Other 01-15-2022 15:00-0400 SaO2% (BldA) [Mass fraction] 99 % Rosemarie Yashira Other [facility] Other 12-25-2021 12:15-0400 Body height 153.03 cm Rosemarie Yashira Other [facility] Other 12-25-2021 12:15-0400 Body mass index (BMI) [Ratio] 20.33 kg/m2 Rosemarie Yashira Other [facility] Other 12-25-2021 12:15-0400 Body temperature 98.6 [degF] Rosemarie Yashira Other [facility] Other 12-25-2021 12:15-0400 Body weight 47.63 kg Rosemarie Yashira Other [facility] Other 12-25-2021 12:15-0400 Respiratory rate 18 /min Rosemarie Ac Other [facility] Other 12-25-2021 12:15-0400 SaO2% (BldA) [Mass fraction] 98 % Rosemarie Ac Other [facility] Other 06-10-2021 14:00-0500 Body height 153.03 cm Haley Dennison Other [facility] Other 06-10-2021 14:00-0500 Body mass index (BMI) [Ratio] 19.56 kg/m2 Haley Dennison Other [facility] Other 06-10-2021 14:00-0500 Body temperature 98 [degF] Haley Dennison Other [facility] Other 06-10-2021 14:00-0500 Body weight 45.81 kg Haley Dennison Other [facility] Other 06-10-2021 14:00-0500 Diastolic blood pressure 60 mm[Hg] Haley Dennison Other [facility] Other 06-10-2021 14:00-0500 Respiratory rate 16 /min Haley Dennison Other [facility] Other 06-10-2021 14:00-0500 Systolic blood pressure 96 mm[Hg] Haley Dennison Other [facility] Other 05-06-2021 12:30-0500 Body height 153.03 cm Haley Juma Other [facility] Other 05-06-2021 12:30-0500 Body mass index (BMI) [Ratio] 18.86 kg/m2 Haley Juma Other [facility] Other 05-06-2021 12:30-0500 Body weight 44.18 kg Haley Valenciamckinley Other [facility] Other 05-06-2021 12:30-0500 Diastolic blood pressure 62 mm[Hg] Haley Juma Other [facility] Other 05-06-2021 12:30-0500 Respiratory rate 16 /min Haley Juma Other [facility] Other 05-06-2021 12:30-0500 SaO2% (BldA) [Mass fraction] 99 % Haley Juma Other [facility] Other 05-06-2021 12:30-0500 Systolic blood pressure 102 mm[Hg] Haley Juma Other [facility] Other Encounters Encounter Date Encounter Type Care Provider Facility Start: 07-19-2024 End: 07-19-2024 Bamboo flowsheet Krista Viji DO Work Phone: [facility] Start: 07-19-2024 End: 07-19-2024 Bamboo flowsheet Krista Viji DO Work Phone: [facility] Start: 06-02-2024 ambulatory Bobo MARTINEZ Facility:[facility] Start: 10-15-2023 ambulatory Luke Gonsalves acility:[facility] Start: 07-16-2023 Clinisync Result Encounter Krista Viji DO Work Phone: [facility] Unsolicited Start: 07-16-2023 Clinisync Result Encounter Krista Viji DO Work Phone: [facility] Unsolicited Start: 07-16-2023 End: 07-16-2023 ambulatory KRISTA VIJI Not Available Start: 07-16-2023 End: 07-16-2023 Patient encounter procedure Krista Viji DO Work Phone: [facility] Work Phone: Start: 07-16-2023 End: 07-16-2023 Periodic preventive med est patient 18-39 yrs Krista Viji DO Work Phone: [facility] Comment on above: Well woman exam with routine gynecological exam Start: 07-15-2023 External Result Encounter Gertrude Oneil [employer] Work Phone: [facility] Unsolicited Start: 07-15-2023 External Result Encounter Gertrude Oneil RETAIL SALESPERSON Work Phone: [facility] Unsolicited Start: 07-15-2023 Telephone encounter Gertrude avalos [facility] [place] Start: 07-15-2023 End: 07-15-2023 Patient encounter procedure DIGITAL CARTOGRAPHIC TECHNICIAN Gertrude Oneil Work Phone: [facility] [place] Work Phone: Start: 07-15-2023 End: 07-15-2023 ambulatory NON STAFF [facility] Work Phone: Start: 11-28-2022 End: 11-28-2022 ambulatory Rosemarie Ac Other [facility] Other Start: 11-28-2022 Office outpatient vi sit 15 minutes Rosemarie Ac [facility] [place] Start: 08-15-2022 End: 08-15-2022 ambulatory Haley Dennison Other [facility] Other Start: 08-15-2022 Telephone encounter Haley Huggins [facility] [place] Start: 05-16-2022 End: 05-16-2022 ambulatory Haley Maryr Other [facility] Other Start: 05-16-2022 Telephone encounter Haley Huggins her [facility] [place] Start: 05-15-2022 End: 05-15-2022 ambulatory Haley Dennison Other [facility] Other Start: 05-15-2022 Office outpatient vi sit 15 minutes Haley Dennison [facility] [place] Start: 05-05-2022 End: 05-05-2022 ambulatory Haley Dennison Other [facility] Other Start: 05-05-2022 Telephone encounter Haley Huggins her [facility] [place] Start: 03-27-2022 End: 03-27-2022 ambulatory Harmony Scarlett Other [facility] Other Start: 03-27-2022 Office outpatient vi sit 25 minutes Harmony Pantoja [facility] [place] Start: 01-16-2022 End: 01-16-2022 ambulatory Haley Maryr Other [facility] Other Start: 01-16-2022 Telephone encounter Haley Huggins her [facility] [place] Start: 01-15-2022 End: 01-15-2022 ambulatory Rosemarie Yashira Other [facility] Other Start: 01-15-2022 Office outpatient vi sit 25 minutes Rosemarie Yashira [facility] [place] Start: 12-27-2021 End: 12-27-2021 ambulatory Haley Quinnacher Other [facility] Other Start: 12-27-2021 Telephone encounter Haley Huggins her [facility] Start: 12-25-2021 End: 12-25-2021 ambulatory Rosemarie Ac Other [facility] Other Start: 12-25-2021 Office outpatient vi sit 15 minutes Rosemariealcon Ac [facility] [place] Start: 07-18-2021 End: 07-18-2021 ambulatory Tristin Theodore Other [facility] Other Start: 07-18-2021 Telephone encounter Tristin Gonsalves [facility] [employer] Start: 06-14-2021 End: 06-14-2021 ambulatory Haley Valenciasarayr Other [facility] Other Start: 06-14-2021 Telephone encounter Haley Huggins her [place] Start: 06-10-2021 End: 06-10-2021 ambulatory Haley Quinnacher Other [facility] Other Start: 06-10-2021 Office outpatient vi sit 25 minutes Haley Juma [facility] Start: 05-23-2021 End: 05-23-2021 ambulatory Haley Annieconnoracher Other [facility] Other Start: 05-23-2021 Telephone encounter Haley Huggins her [facility] Start: 05-16-2021 End: 05-16-2021 ambulatory Elliot Hammond Other [facility] Other Start: 05-16-2021 Telephone encounter Elliot JOYCE G [employer] Start: 05-13-2021 End: 05-13-2021 ambulatory Haley Juma Other [facility] Other Start: 05-13-2021 Telephone encounter Haley Bhavna her [place] Start: 05-06-2021 End: 05-06-2021 ambulatory Haley Juma Other [facility] Other Start: 05-06-2021 Office outpatient vi sit 25 minutes Haley Dennison [facility] Family [facility] Start: 09-22-2017 End: 09-22-2017 Ambulatory DEBORA Pedro PARADA Facility:[facility] Procedures Date Procedure Procedure Detail Performing Clinician Start: 07-16-2023 IGP,APTIMA HPV,AGE GDLN Krista Hallman DO Work Phone: Start: 07-15-2023 Complete blood count with white cell differential, automated Gertrude Oneil RETAIL SAL[employer]ERSON Work Phone: Plan of Treatment Date Care Activity Detail Author Start: 07-19-2024 End: 07-19-2024 Patient encounter procedure [facility] Comment on above: Arrived Start: 02-07-2024 Influenza vaccination Influenza Vacc ine (#1) [facility] Start: 07-16-2023 End: 07-16-2023 Patient encounter procedure 07/16/2023 10:00 AM EST Office Visit [facility] [address] [place] [address] Krista Hallman, DO [address] [place] [address] Well woman exam with routine gynecological exam [facility] Comment on above: Well woman exam with routine gynecological exam Cytology Cervical or vaginal smear or scraping study Pap Smear Pathology and Cytology Routine Well woman exam with routine gynecological exam Ordered: 07/16/2023 [facility] Work Phone: Comment on above: Ordered: 07/16/2023 Insulin [Units/volum e] in Serum or Plasma [facility] Insulin, random Insulin, random Lab Routine 07/15/2023 11:20 AM EST [facility] Work Phone: Testosterone Free [Mass/volume] in Serum or Plasma [facility] Immunizations Immunization Date Immunization Notes Care Provider Francie gemrándaina 05-13-2010 varicella virus vaccine Polina Dennison Other [facility] Other 02-04-2006 diphtheria, tetanus toxoids and acellular pertussis vaccine Haley Juma Other [facility] Other 02-04-2006 measles, mumps and rubella virus vaccine Haley Kaiacher Other [facility] Other 02-04-2006 poliovirus vaccine, inactivated Haley Maryr Other [facility] Other 10-20-2001 diphtheria, tetanus toxoids and acellular pertussis vaccine Haley Juma Other [facility] Other 10-20-2001 measles, mumps and rubella virus vaccine Haley Tyrar Other [facility] Other 09-20-2001 varicella virus vaccine Polina patsytucker Dennison Other [facility] Other 08-16-2001 haemophilus influenz ae type b vaccine, PRP-OMP conjugate Haley Dennison Other [facility] Other 08-16-2001 measles, mumps and rubella virus vaccine Haley Kaiacher Other [facility] Other 08-16-2001 poliovirus vaccine, inactivated Haley Quinnacher Other [facility] Other 04-12-2001 diphtheria, tetanus toxoids and acellular pertussis vaccine Halye Juma Other [facility] Other 04-12-2001 haemophilus influenz ae type b vaccine, PRP-OMP conjugate Haley Tyrar Other [facility] Other 04-12-2001 hepatitis B vaccine, pediatric or pediatric/adolescent dosage Haley Dennison Other [facility] Other 04-12-2001 pneumococcal polysaccharide vaccine, 23 valent Haley Tyrar Other [facility] Other 2000 diphtheria, tetanus toxoids and acellular pertussis vaccine Haley Juma Other [facility] Other 2000 haemophilus influenz ae type b vaccine, PRP-OMP conjugate Haley Dennison Other [facility] Other 2000 pneumococcal polysaccharide vaccine, 23 valent Haley Annierbacher Other [facility] Other 2000 poliovirus vaccine, inactivated Haley Dennison Other [facility] Other 2000 diphtheria, tetanus toxoids and acellular pertussis vaccine Haley Tyrar Other [facility] Other 2000 haemophilus influenz ae type b vaccine, PRP-OMP conjugate Haley Maryr Other [facility] Other 2000 hepatitis B vaccine, pediatric or pediatric/adolescent dosage Haley Juma Other [facility] Other 2000 pneumococcal polysaccharide vaccine, 23 valent Haley Juma Other [facility] Other 2000 poliovirus vaccine, inactivated Haley Juma Other [facility] Other 2000 hepatitis B vaccine, pediatric or pediatric/adolescent dosage Haley Juma Other [facility] Other Payers Date Payer Category Payer Unknown [id number] 2.1 [id number] 2023 Self-pay [id number] 2022 Medicaid [id number] 2. [id number] 2022 Medicaid [id number] 2000 Unknown [id number] 2000 Unknown [id number] [id number] 1959 Unknown [id number] Unknown [id number] [id number] [id number] Unknown [id number] [id number] Social History Date Type Detail Facility Unknown if ever smoked [facility] Other Sex Assigned At [facility] Other Start: 2000 Sex Assigned At Female [facility] Start: 10-28-2022 Tobacco smoking status [facility] Tobacco smoking consumption unknown [facility] Start: 2000 Sex Assigned At Not on file [facility] Clinical Notes 05-06-2021 to 06-02-2024 MICHELLE Meek - 07/16/2023 10:00 AM EST Note Date & Type Note Facility 06-02-2024 Note Patient Education Ma terials Follows: Migraine Headache A migraine headache is an intense pulsing or throbbing pain on one or both sides of the head. Migraine headaches may also cause other symptoms, such as nausea, vomiting, and sensitivity to light and noise. A migraine headache can last from 4 hours to 3 days. Talk with your health care provider about what things may bring on (trigger) your migraine headaches. What are the causes? The exact cause is not known. However, a migraine may be caused when nerves in the brain get irritated and release chemicals that cause blood vessels to become inflamed. This inflammation causes pain. Migraines may be triggered or caused by: ? Smoking. ? Medicines, such as: ? Nitroglycerin, which is used to treat chest pain. ? control pills. ? Estrogen. ? Certain blood pressure medicines. ? Foods or drinks that contain nitrates, glutamate, aspartame, MSG, or tyramine. ? Certain foods or drinks, such as aged cheeses, chocolate, alcohol, or caffeine. ? Doing physical activity that is very hard. Other triggers may include: ? Menstruation. ? . ? Hunger. ? Stress. ? Getting too much or too little sleep. ? Weather changes. ? Tiredness (fatigue). What increases the risk? The following factors may make you more likely to have migraine headaches: ? Being between the ages of 25-55 years old. ? Being female. ? Having a family history of migraine headaches. ? Being . ? Having a mental health condition, such as depression or anxiety. ? Being obese. What are the signs or symptoms? The main symptom of this condition is pulsing or throbbing pain. This pain may: ? Happen in any area of the head, such as on one or both sides. ? Make it hard to do daily activities. ? Get worse with physical activity. ? Get worse around bright lights, loud noises, or smells. Other symptoms may include: ? Nausea. ? Vomiting. ? Dizziness. Before a migraine headache starts, you may get warning signs (an aura). An aura may include: ? Seeing flashing lights or having blind spots. ? Seeing bright spots, halos, or zigzag lines. ? Having tunnel vision or blurred vision. ? Having numbness or a tingling feeling. ? Having trouble talking. ? Having muscle weakness. After a migraine ends, you may have symptoms. These may include: ? Feeling tired. ? Trouble concentrating. How is this diagnosed? A migraine headache can be diagnosed based on: ? Your symptoms. ? A physical exam. ? Tests, such as: ? A CT scan or an MRI of the head. These tests can help rule out other causes of headaches. ? Taking fluid from the spine (lumbar puncture) to examine it (cerebrospinal fluid analysis, or CSF analysis). How is this treated? This condition may be treated with medicines that: ? Relieve pain and nausea. ? Prevent migraines. Treatment may also include: ? Acupuncture. ? Lifestyle changes like avoiding foods that trigger migraine headaches. ? Learning ways to control your body (biofeedback). ? Talk therapy to help you know and deal with negative thoughts (cognitive behavioral therapy). Follow these instructions at home: Medicines ? Take vuaw-bzl-cpfemik and prescription medicines only as told by your provider. ? Ask your provider if the medicine prescribed to you: ? Requires you to avoid driving or using machinery. ? Can cause constipation. You may need to take these actions to prevent or treat constipation: ? Drink enough fluid to keep your pee (urine) pale yellow. ? Take vnwj-fkx-yeyyzgz or prescription medicines. ? Eat foods that are high in fiber, such as beans, whole grains, and fresh fruits and vegetables. ? Limit foods that are high in fat and processed sugars, such as fried or sweet foods. Lifestyle ? Do not drink alcohol. ? Do not use any products that contain nicotine or tobacco. These products include cigarettes, chewing tobacco, and vaping devices, such as e-cigarettes. If you need help quitting, ask your provider. ? Get 7?9 hours of sleep each night, or the amount recommended by your provider. ? Find ways to manage stress, such as meditation, deep breathing, or yoga. ? Try to exercise regularly. This can help lessen how bad and how often your migraines occur. General instructions ? Keep a journal to find out what triggers your migraines, so you can avoid those things. For example, write down: ? What you eat and drink. ? How much sleep you get. ? Any change to your diet or medicines. ? If you have a migraine headache: ? Avoid things that make your symptoms worse, such as bright lights. ? Lie down in a dark, quiet room. ? Do not drive or use machinery. ? Ask your provider what activities are safe for you while you have symptoms. ? Keep all follow-up visits. Your provider will monitor your symptoms and recommend any further treatment. Where to find more information ? [facility] (more content not included)... [facility] 07-16-2023 History of Presen t illness Narrative Reason for Appointment: Patient ID: Saran Simpson is a 22 y.o. female who presents for Well Women Visit Patient presents today for Annual Exam appointment. Current Medications: has a current medication list which includes the following prescription(s): magnesium-oxide, omeprazole, buspirone, omeprazole otc, and venlafaxine xr. 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 Social History Tobacco Use Smoking status: Not on file Smokeless tobacco: Not on file Substance Use Topics Alcohol use: Not on file Drug use: Not on file Past Surgical History: Procedure Laterality Date SECTION, LOW TRANSVERSE 12/30/2022 No Known Allergies Review of Systems: Review of Systems Constitutional: Negative. HENT: Negative. Eyes: Negative. Respiratory: Negative. Cardiovascular: Negative. Gastrointestinal: Negative. Genitourinary: Negative. Musculoskeletal: Negative. Skin: Negative. Neurological: Negative. All other systems reviewed and are negative. Hematological: Negative. Endocrine: Negative. Allergic/Immunologic: Negative. Objective Physical Exam Constitutional: Appearance: Normal appearance. Genitourinary: Vaginal cuff intact. Right Adnexa: not tender and no mass present. Left Adnexa: not tender and no mass present. No cervical discharge. Breasts: Breasts are soft. Right: Normal. Left: Normal. HENT: Head: Normocephalic. Nose: Nose normal. Mouth/Throat: Mouth: Mucous membranes are moist. Cardiovascular: Rate and Rhythm: Normal rate. Pulmonary: Effort: Pulmonary effort is normal. Abdominal: General: Bowel sounds are normal. Palpations: Abdomen is soft. Musculoskeletal: General: Normal range of motion. Cervical back: Normal range of motion. Neurological: General: No focal deficit present. Mental Status: She is alert. Skin: General: Skin is warm and dry. Psychiatric: Mood and Affect: Mood normal. Vitals and nursing note reviewed. Exam conducted with a sports team manager present. Vitals: Estimated body mass index is 22.23 kg/m as calculated from the following: Height as of 02/17/23: 5'. Weight as of this encounter: 113 lb 12.8 oz. BP: 110/70 No LMP recorded. Assessment/Plan Encounter Diagnosis Name Primary? Well woman exam with routine gynecological exam Patient presents today for an annual exam. Patient states she is doing well and has no complaints. Pap was obtained without difficulty. Follow Up: Patient is to return in one year for annual unless needed otherwise. Documented by MICHELLE Meek on behalf of: Krista Hallman DO documented in this encounter [facility] 11-28-2022 Evaluation note Encounter Date Diagnosis [...] pain. Follow-up with your family physician or STATISTICAL GENETICIST if no improvement in 2 to 3 days Nov, Acute sinusitis, recurrence not specified, unspecified location (ICD-10 - J01.90) Sinusitis home care material was printed [facility] Other 12-08-2022 Evaluation note* Encounter Date Diagnosis [...] N64.4) May, Positive test (ICD-10 - Z32.01) [facility] Other 11-28-2022 Evaluation note* Encounter Date Diagnosis Assessment Notes Treatment Notes Treatment Clinical Notes Apr, Depression with anxiety (ICD-10 - F41.8) [facility] Other 10-20-2022 Evaluation note* Encounter Date Diagnosis [...] (suspected) exposure to covid-19 (ICD-10 - Z20.822) [facility] Other 08-10-2022 Evaluation note* Encounter Date Diagnosis [...] - R31.9) Jan, Dysuria (ICD-10 - R30.0) [facility] Other 07-20-2022 Evaluation note* Encounter Date Diagnosis [...] no improvement in 2 to 3 days [facility] Other 01-03-2022 Evaluation note* Encounter Date Diagnosis [...] issues. Jun, Other acne (ICD-10 - L70.8) [facility] Other 12-16-2021 Evaluation note* Encounter Date Diagnosis Assessment Notes Treatment Notes Treatment Clinical Notes May, Shoulder height discrepancy (ICD-10 - M21.829) May, Curvature of thoracic spine (ICD-10 - M43.9) May, Pain in thoracic spine (ICD-10 - M54.6) May, Other chronic pain (ICD-10 - G89.29) May, Pelvis tilted (ICD-10 - M95.5) [facility] Other 11-29-2021 Evaluation note* Encounter Date Diagnosis [...] Order provided to patient and faxed to [employer]. Will call with results Apr, Shoulder height discrepancy (ICD-10 - M21.829) [facility] Other Evaluation noteNo InformationNort [employer] Other Evaluation noteNo assessment information available [facility] Work Phone: Evaluation note* Diagnosis Well woman exam with routine gynecological exam Routine gynecological examination documented in this encounter [facility] N[facility]ative - Reported* Type Description Date Medical History Abdominal pain, generalized Medical History Shortness of breath Medical History Abnormal loss of weight Medical History concussion 2006 Medical History Concussion Medical History Chest pain Medical History Depression Hospitalization History concussion 2005 Hospitalization History [place]-Depression [facility] Other History [facility] [employer] Other History general Narrative - Reported* Type Description Date Medical History Abdominal pain, generalized Medical History Shortness of breath Medical History Abnormal loss of weight Medical History concussion 2006 Medical History Concussion Medical History Chest pain Medical History Depression Surgical History C section 2022 Hospitalization History concussion 2005 Hospitalization History [place]-Depression [facility] Other Summary Purpose Family History No Family History Records FoundNo Family History Records FoundNo Family History Records FoundNo Family History Records FoundNo Family History Records Found Advance Directives Advance Directive Response Recorded Date/ Time Advance Directives No April 2:18pm Reason for Referral Reason *Waiting for appt Please call pt to schedule Diagnosis 1 Shoulder height disc repancy (M21.829) Diagnosis 2 Curvature of thoraci c spine (M43.9) Diagnosis 3 Lumbar spondylosis ( M47.816) Referral Organization [facility] [employer] [place] Referring Provider First Name Haley Referring Provider Last Name Kaiacher Referring Provider Specialty Nurse Pract itioner Referred Organization [facility] Referred Provider Andrae Lema Referred Address [address],[address] Referred Provider Specialty Neurological Surgery Referral Priority Routine General Notes Yanna Arenas 08:40:58 AM >RECEIVED TODAY, SENT P2P Reason X-ray has been completed in pt's DI tab Diagnosis 1 Shoulder height disc repancy (M21.829) Diagnosis 2 Curvature of thoraci c spine (M43.9) Referral Organization [facility] [employer] [place] Referring Provider First Name Haley Referring Provider Last Name Annierbacher Referring Provider Specialty Nurse Pract itioner Referred Organization [facility] Referred Provider Elliot Hammond Referred Address [address] [place], [place],[address] Referred Provider Specialty Orthopedic S urgery Referral Priority Routine General Notes Yanna Arenas 11:36:19 AM >RECEIVED TODAY, SENT P2P Additional Source Comments INFORMATION SOURCE (unrecogn ized section and content) DATE CREATED AUTHOR 11/26/2017 [facility] DATE CREATED AUTHOR AUTHOR'S ORGANIZ ATION 11/27/2017 [facility] DATE CREATED AUTHOR AUTHOR'S ORGANIZ ATION 07/17/2023 [facility] EPIC DATE CREATED AUTHOR AUTHOR'S ORGANIZ ATION 12/23/2023 [facility] DATE CREATED AUTHOR AUTHOR'S ORGANIZ ATION 06/22/2024 [facility] REASON FOR VISIT (unrecogniz ed section and content) Reason Comments [facility] Visit Care Teams (unrecognized sec tion and content) Team Status: Inactive Member Role Status Dates Gertrude Oneil APRN Attending Provider Active Start: July 15, 2023 End: July 15, 2023 Correspondent Relationship Specialty Start Date End Date Stefania Becerra MD [address] [place] [address] PCP - [facility] 09/07/23 Goals (unrecognized section and content) Goals may [...] BE BASED ON THE PRIMARY CLINICAL RECORDS. [employer] provides no warranty or guarantee of the accuracy or completeness of information in this document.
[2024-07-22 17:08] LABS: Age Gdln ACOG Testing Note (.); IGP, rfx Aptima HPV ASCU Note (.)
== END 2024-07-19 20:47 | disposition home or self-care (01) ==
LOC: LAB 20:47
PROVIDERS: Visit Provider Obstetrics & Gynecology
DX: Z01.419 Encounter for gynecological examination (general) (routine) without abnormal findings (principal)
CPT/HCPCS: 88175